=== PATIENT | male | born 1945 | race Caucasian/White ===

== ENCOUNTER → 2018-05-13 08:07 | Outpatient (CLI) | payer MEDICARE, OTHER, SELFPAY ==
[2018-05-13 09:25] LABS: Add Manual Diff / Slide Review NO; Basophils Percent Auto 1.2 % (0-2); Eosinophils Percent Auto 3.4 % (2-4); Hematocrit 43.2 % (41-53); Hemoglobin 14.6 g/dL (13.5-17.5); Lymphocytes Percent Auto 27.6 % (25-40); Mean Corpuscular HGB Conc 33.8 % (30-36); Mean Corpuscular Hemoglobin 29.4 PG (26-34); Mean Corpuscular Volume 86.8 fL (80-100); Monocytes Percent Auto 8.5 % (3-14); Neutrophils Absolute Auto 3900 /uL (3000-5900); Neutrophils Percent Auto 59.3 % (50-75); Platelet Count 235 X10^3/uL (150-400); Red Blood Cell Count 4.98 X10^6/uL (4.5-5.9); Red Cell Distribution Width 13.7 % (11.6-14.8); White Blood Cell Count 6.6 X10^3/uL (4.5-11.0)
[2018-05-13 09:44] LABS: Alanine Aminotransferase 26 IU/L (21-72); Albumin 4.1 g/dL (3.5-5.0); Albumin Globulin Ratio 1.5 (1.0-2.8); Alkaline Phosphatase 65 U/L (38-126); Aspartate Aminotransferase 28 IU/L (17-59); BUN Creatinine Ratio 26.7 (6-22); Bilirubin Total 0.8 mg/dL (0.2-1.3); Blood Urea Nitrogen 24 mg/dL (9-20); Calcium 9.5 mg/dL (8.4-10.2); Carbon Dioxide 29 mmol/L (22-32); Chloride 105 mmol/L (98-107); Cholesterol 127 mg/dL (140-199); Estimated Glomerular Filt Rate > 60.0 mL/min (>60); Globulin 2.7 g/dL (1.7-4.1); Glucose 90 mg/dL (80-110); HDL Cholesterol 39 mg/dL (40-60); HEMOLYSIS < 15 (0-50); LDL Cholesterol Calculated 75 mg/dL (<100); Magnesium 2.1 mg/dL (1.6-2.3); Potassium 4.6 mmol/L (3.4-5.1); Sodium 142 mmol/L (137-145); Total Protein 6.8 g/dL (6.3-8.2); Triglycerides 63 mg/dL (35-150)
[2018-05-13 10:15] LABS: Thyroid Stimulating Hormone 2.76 uIU/mL (0.47-4.68)
== END ==
PROVIDERS: PCP Family Medicine; Visit Provider Family Medicine
DX: R42 Dizziness and giddiness (principal)
CPT/HCPCS: 36415; 80053; 80061; 83735; 84443; 85025

== ENCOUNTER → 2018-06-08 07:23 | Outpatient (CLI) | payer MEDICARE, OTHER, SELFPAY ==
--- NOTE | 2018-06-08 07:24 | DI.MRI.S_ITS ---
PROCEDURE: MR HEAD/BRAIN WO CON INDICATIONS: 72 year-old man with vertigo. TECHNIQUE: Non-contrast axial T1 spin echo, axial T2 fast spin echo, sagittal and axial FLAIR, coronal T2 fast spin echo, axial gradient echo, axial diffusion and ADC through the brain. COMPARISON: None. FINDINGS: Image quality: Excellent. CSF spaces: Ventricles appear symmetric in size and shape. Basal cisterns are patent. No extra-axial fluid collections. Brain: No intracranial bleeds or mass effects. There is mild cerebral volume loss for age. There are mild periventricular and deep white matter chronic small vessel ischemic changes. Brainstem appears normal. Diffusion-weighted images show no acute ischemic insults. No chronic ischemic insults. Normal intravascular flow voids are present. Skull and face: Calvarial bone marrow is normal in signal. Orbits are normal. Sinuses: There is a mucous retention cyst in the left maxillary sinus. No stoids are clear. IMPRESSION: 1. No acute intracranial abnormalities. 2. Cerebral volume loss and chronic microvascular ischemic changes. 3. A mucous retention cyst in the left maxillary sinus. Dictated by: Latosha Nash M.D. on 06/08/2018 at 9:59 Approved by: Latosha Nash M.D. on 06/08/2018 at 10:03
== END ==
PROVIDERS: Family Provider Family Medicine; PCP Family Medicine; Visit Provider Family Medicine
DX: R42 Dizziness and giddiness (principal); J34.1 Cyst and mucocele of nose and nasal sinus
CPT/HCPCS: 70551

== ENCOUNTER → 2019-02-02 11:12 | Outpatient (CLI) | payer MEDICARE, OTHER, SELFPAY ==
[2019-02-02 11:41] LABS: Hematocrit 45.6 % (41-53); Hemoglobin 15.4 g/dL (13.5-17.5); Mean Corpuscular HGB Conc 33.7 % (30-36); Mean Corpuscular Hemoglobin 29.4 PG (26-34); Mean Corpuscular Volume 87.1 fL (80-100); Platelet Count 246 X10^3/uL (150-400); Red Blood Cell Count 5.23 X10^6/uL (4.5-5.9); Red Cell Distribution Width 13.7 % (11.6-14.8); White Blood Cell Count 9.7 X10^3/uL (4.5-11.0)
[2019-02-02 12:18] LABS: Alanine Aminotransferase 18 IU/L (21-72); Albumin 4.3 g/dL (3.5-5.0); Albumin Globulin Ratio 1.8 (1.0-2.8); Alkaline Phosphatase 67 U/L (38-126); Aspartate Aminotransferase 21 IU/L (17-59); BUN Creatinine Ratio 21.3 (6-22); Bilirubin Total 0.8 mg/dL (0.2-1.3); Blood Urea Nitrogen 17 mg/dL (9-20); Calcium 9.6 mg/dL (8.4-10.2); Carbon Dioxide 27 mmol/L (22-32); Chloride 102 mmol/L (98-107); Estimated Glomerular Filt Rate > 60.0 mL/min (>60); Globulin 2.4 g/dL (1.7-4.1); Glucose 81 mg/dL (80-110); HEMOLYSIS < 15 (0-50); Potassium 4.5 mmol/L (3.4-5.1); Sodium 138 mmol/L (137-145); Total Protein 6.7 g/dL (6.3-8.2)
[2019-02-02 13:36] LABS: Neutrophils Absolute Manual 6208 /uL (3000-5900); Total Cells Counted 100
[2019-02-02 13:38] LABS: RBC Morphology Normal Morphology
== END ==
PROVIDERS: Family Provider Family Medicine; PCP Family Medicine; Visit Provider Surgery
DX: D17.9 Benign lipomatous neoplasm, unspecified (principal); I27.0 Primary pulmonary hypertension
CPT/HCPCS: 36415; 80053; 85025; 93005; 93010; 99213

== ENCOUNTER 2019-03-16 09:24 | Day surgery (SDC) | payer MEDICARE, OTHER, SELFPAY ==
[2019-02-03 08:52] VITALS: BMI 29.4
--- NOTE | 2019-03-16 | PATH_ITS ---
[facility] Accession Number: [id number] . 01 Material submitted: . flank - RIGHT FLANK . 01 Clinical history: . LIPOMA 8 X 5 X 2 . 01 Diagnosis: Right Flank Lesion, Excision: Mature adipose tissue, consistent with lipoma. Negative for malignancy. MRV/03/18/2019 . 01 Electronically signed: . Higinio Ramos MD, Pathologist NPI- [id number] . 01 Gross description: . RIGHT FLANK: Received in formalin are 2 fragments of fernandez soft tissue measuring 7.0 x 4.0 x 2.0 cm. Tissue is inked blue. Specimen is sectioned and submitted in public utilities sales representative sections in 6 cassettes, labeled A1-A6. /DMC /DMC . 01 Pathologist provided ICD-10: D17.9 . 01 CPT . 725387 Performed at: 01 [facility] [address] [place] [address] [address], [place], [place] [id number] MD Tommy Matson MD Phone: [phone]
[2019-03-16 11:56] VITALS: BP 176/86; PULSE 61; RESP 16; TEMP 36.5; O2SAT 97; BMI 28.1
[2019-03-16] MEDS: LACTATED RINGERS 1,000 ML 42 ML IV (12:00)
--- NOTE | 2019-03-16 12:29 | PM.PREOP ---
Pre-operative Note Interval Note History & Physical reviewed/Exam performed by Physician: Yes Changes to H&P: No
--- NOTE | 2019-03-16 12:54 | PM.HP.1 ---
History of Present Illness Date Patient Seen: 03/16/19 Time Patient Seen: 12:54 Chief complaint: [id number] Narrative: 73yo M with enlarging R flank lipoma. Quite bothersome. Patient History Medical History Arthritis (Acute) Easy bruisability (Acute) Enlarged prostate (Acute) Shoulder pain (Acute) Asthma (Chronic) Chronic cough (Chronic ~2004) Coronary artery disease (Chronic ~2002) Hearing loss (Chronic ~1993) Pulmonary hypertension (Chronic ~2002) Seasonal allergies (Chronic) Vision disorder (Chronic) Chicken pox (Resolved) Malaria (Resolved ~2007) Measles (Resolved) Surgical History Anesthesia (Resolved) History of surgery (Resolved ~1971) Family History Father Heart disease Grandmother Stomach cancer Mother Dementia Social History marital status: household members: spouse occupational status: previously employed Smoking Status: Former smoker alcohol intake: current substance use type: does not use Family & Social History Family History Father Heart disease Grandmother Stomach cancer Mother Dementia Social History: household members spouse Tobacco & Substance use: Smoking Status Former smoker alcohol intake current Substance Use Type does not use Meds Home Medications Medication Instructions Recorded Confirmed Type niacin 500 mg PO BID #0 06/13/11 02/03/19 History atorvastatin 10 mg tablet 10 mg PO HS #90 tab 05/11/18 03/16/19 Rx lisinopril 20 mg tablet 20 mg PO BID #180 tab 05/11/18 03/16/19 Rx aspirin 81 mg PO BID 02/03/19 03/16/19 History docusate sodium [Colace] 100 mg PO BID #60 cap 03/16/19 Rx ibuprofen 800 mg PO TID #30 tab 03/16/19 Rx oxycodone-acetaminophen [Percocet] 1 tab PO Q4-6H PRN #30 tab 03/16/19 Rx Allergies Allergy/AdvReac Type Severity Reaction Status Date / Time tetanus and diphtheria Allergy Mild ILL Verified 03/16/19 12:22 toxoids [tetanus & diphtheria toxoids] Opioids - Morphine Analogues AdvReac Intermediate Nausea Verified 02/02/19 10:39 Review of Systems Constitutional Constitutional: Reports as per HPI Exam Vital Signs (past 8 hours): - 03/16/19 11:56 Temperature 97.7 F Pulse Rate 61 Respiratory Rate 16 Blood Pressure 176/86 H Pulse Oximetry 97 Oxygen Delivery Method Room Air Narrative Exam Narrative: AAO, NAD, overweight male EOMI, MMM, no scleral icterus unlabored RA soft, nt/nd MAEW visible skin dry and intact Assessment & Plan (1) Lipoma: Current visit: Yes Status: Acute Assessment & Plan narrative: - large R flank presumed lipoma --> plan for excision --> all R/B/A discussed and pt wishes to proceed
[2019-03-16] MEDS: CEFAZOLIN 2 GM/100 ML FROZ.PIGGY IV (13:10)
--- NOTE | 2019-03-16 13:29 | SUR.OPER ---
Lateral on galo bag over padded OR bed, head on pillows, bottom leg bent with gel pad under knee to foot, upper leg straight and supported with pillow. Upper arm supported by pillows and secured over bottom arm to padded arm board. Safety belt at hip, tape over blanket over torso.
[2019-03-16] MEDS: BUPIVACAINE 0.25% W/ EPI 30 ML VIAL INJ (13:35)
[2019-03-16 13:57] VITALS: BP 148/77; PULSE 65; RESP 21; TEMP 36.5; O2SAT 98
[2019-03-16 14:02] VITALS: BP 132/67; PULSE 62; RESP 19; TEMP 36.5; O2SAT 98
[2019-03-16 14:07] VITALS: BP 127/72; PULSE 65; RESP 18; TEMP 36.3; O2SAT 98
[2019-03-16 14:13] VITALS: BP 146/76; PULSE 63; RESP 18; TEMP 36.3; O2SAT 97
--- NOTE | 2019-03-16 15:41 | PM.OP.1 ---
Operative Date/Time/Diagnoses Date of procedure: 03/16/19 Time of procedure: 14:00 Pre-op diagnosis: Right flank mass Post-op diagnosis: same Procedure & Clinicians Procedure: Excision of Right Flank Mass Same procedure as scheduled: Yes Indications: 73yo M with a long-standing but enlarging right flank soft tissue mass. Consistent with lipoma on exam. Causes him much discomfort and is compressed with bending hip and belt which causes shooting pains. All risks, benefits, and alternatives are discussed and patient wishes to proceed. Surgeon: Jia Tabler Click Yes if Unassisted: Yes Anesthesia Type: General Operative Notes Findings: soft tissue mass of adipose tissue, consistent with lipoma ([id number]) Closure Type: primary Specimen(s): other (right flank mass) Estimated Blood Loss (mL): 3 Procedure in detail: Patient is taken to the OR suite, placed in supine position, and induced to an acceptable level of general anesthesia, then turned onto left lateral decubitus position. The area is prepped and draped in sterile fashion and a timeout performed with the team present. Attention is turned to the lesion of the right flank. Local anesthesia is infiltrated over the site. An incision is made with a 10 blade scalpel over the body of the mass. It is carried down through the dermis using electrocautery and the bulging soft tissue mass of adipose tissue was quickly encountered. This was dissected away from surrounding tissues using blunt and sharp dissection with attention to hemostasis. As noted, the mass was superficial and it was well defined. Once completely released, it is moved off the field to be sent for specimen. The field is irrigated and hemostasis ensured. The deep dermis is closed with 2-0 vicryl sutures. The dermis is closed with 3-0 vicryl in an interrupted fashion and the epidermis with 4-0 monocryl in running fashion. The area is cleaned and dried and skin glue applied. All counts were correct. Patient tolerated the procedure well, was awakened without issue, and taken to PACU hemodynamically stable. Complications: none Condition: stable Disposition: PACU
--- NOTE | 2019-03-16 15:47 | P.OP_ITS ---
Operative Date/Time/Diagnoses Date of procedure: 03/16/19 Time of procedure: 14:00 Pre-op diagnosis: Right flank mass Post-op diagnosis: same Procedure & Clinicians Procedure: Excision of Right Flank Mass Same procedure as scheduled: Yes Indications: 73yo M with a long-standing but enlarging right flank soft tissue mass. Consistent with lipoma on exam. Causes him much discomfort and is compressed with bending hip and belt which causes shooting pains. All risks, benefits, and alternatives are discussed and patient wishes to proceed. Surgeon: Jia Tabler Click Yes if Unassisted: Yes Anesthesia Type: General Operative Notes Findings: soft tissue mass of adipose tissue, consistent with lipoma ([id number]) Closure Type: primary Specimen(s): other (right flank mass) Estimated Blood Loss (mL): 3 Procedure in detail: Patient is taken to the OR suite, placed in supine p osition, and induced to an acceptable level of general anesthesia, then turned onto left lateral decubitus position. The area is prepped and draped in sterile fashion and a timeout performed with the team present. Attention is turned to the lesion of the right flank. Local anesthesia is infiltrated over the site. An incision is made with a 10 blade scalpel over the body of the mass. It is carried down through the dermis using electrocautery and the bulging soft tissue mass of adipose tissue was quickly encountered. This was dissected away from surrounding tissues using blunt and sharp dissection with attention to hemostasis. As noted, the mass was superficial and it was well defined. Once completely released, it is moved off the field to be sent for specimen. The field is irrigated and hemostasis ensured. The deep dermis is closed with 2-0 vicryl sutures. The dermis is closed with 3-0 vicryl in an interrupted fashion and the epidermis with 4-0 monocryl in running fashion. The area is cleaned and dried and skin glue applied. All counts were correct. Patient tolerated the procedure well, was awakened without issue, and taken to PACU hemodynamically stable. Complications: none Condition: stable Disposition: PACU
== END 2019-03-16 14:20 | disposition home or self-care (01) ==
PROVIDERS: Family Provider Family Medicine; PCP Family Medicine; Visit Provider Surgery
PROC: (CPT 21931; principal; 2019-03-16 09:45)
DX: D17.1 Benign lipomatous neoplasm of skin and subcutaneous tissue of trunk (principal); J45.909 Unspecified asthma, uncomplicated; I25.10 Atherosclerotic heart disease of native coronary artery without angina pectoris
CPT/HCPCS: 21931; 11406; 88304; J0690; J1100; J2704

== ENCOUNTER 2019-03-20 08:36 | Emergency (ER) | payer MEDICARE, OTHER, SELFPAY ==
[2019-03-20 08:52] VITALS: BP 163/85; PULSE 72; RESP 23; TEMP 36.7; O2SAT 95; BMI 28.7
[2019-03-20 09:13] VITALS: BP 158/82; PULSE 67; RESP 22
--- NOTE | 2019-03-20 09:13 | ED.DIZZY ---
HPI - Dizziness General Chief Complaint: Dizziness Stated Complaint: 'blood pressure's gone crazy' Time Seen by Provider: 03/20/19 08:48 Source: patient and family () Mode of arrival: ambulatory Limitations: no limitations History of Present Illness HPI Narrative: This is a 73-year-old who comes to the emergency department with complaint of lightheadedness. He states it started after he had surgery on patient had a lipoma removed from his right hip. He states he has felt just a little off balance. This morning he was on a ladder painting overhead and made his symptoms worse. Patient states that his surgery went well, he does not have any pain in the hip. He thought it might be the narcotic pain medication so he stopped this but his symptoms do not resolve he denies any syncope he has had mild headache he states that is been since the painting. No chest pain or pressure, no nausea, no vomiting no diarrhea or constipation. No urinary issues. No weakness or numbness in his extremities or difficulty with movement. No issues with speech. His does not appreciate any acute changes. He states the knee is head up and down exacerbates his symptoms, bending over makes them worse. Turning his head side to side is not as problematic. He has had no nasal congestion, no ear pain or pressure. No chills or fevers. Patient has a history of stent in 2002 he takes lisinopril as well as atorvastatin and 81 mg aspirin in the morning and evening. He has a history of right knee surgery as well and his recent lipoma removal. Patient states the incision looks well and does not show any signs of infection and his pain there has resolved. He denies any tobacco, alcohol or illicit. Dr. Major is his primary care. He admits to some mild memory issues which his states he does seem to have. Related Data Home Medications Medication Instructions Recorded Confirmed niacin 500 mg PO BID #0 06/13/11 02/03/19 aspirin 81 mg PO BID 02/03/19 03/16/19 Previous Rx's Medication Instructions Recorded atorvastatin 10 mg tablet 10 mg PO HS #90 tab 05/11/18 lisinopril 20 mg tablet 20 mg PO BID #180 tab 05/11/18 docusate sodium [Colace] 100 mg PO BID #60 cap 03/16/19 ibuprofen 800 mg PO TID #30 tab 03/16/19 oxycodone-acetaminophen [Percocet] 1 tab PO Q4-6H PRN #30 tab 03/16/19 meclizine 25 mg PO BID-QID PRN #14 tab 03/20/19 Allergies Allergy/AdvReac Type Severity Reaction Status Date / Time tetanus and diphtheria Allergy Mild ILL Verified 03/16/19 12:22 toxoids [tetanus & diphtheria toxoids] Opioids - Morphine Analogues AdvReac Intermediate Nausea Verified 02/02/19 10:39 Review of Systems Review of Systems ROS Unobtainable: All systems reviewed & are unremarkable except as noted in HPI and below Constitutional Denies chills, Denies fever(s), Denies frequent falls, Reports headache(s) (Mild per patient), Denies lethargy and Denies weakness Eyes Denies change in vision ENT Ears, Nose, Mouth, and Throat: Denies abnormal hearing, Reports vertigo (room not spinning but off balance.), Denies ear discharge, Denies otalgia, Reports headache(s) (Mild per patient), Denies nasal congestion, Reports disequilibrium (Mild), Denies tinnitus and Denies sinus pain Cardiovascular Denies chest pain, Denies diaphoresis, Denies syncope, Denies rapid heart rate, Denies edema, Denies irregular heart rhythm, Reports lightheadedness, Denies radiating jaw, neck or arm pain, Denies palpitations, Denies dyspnea, Denies dyspnea on exertion and Denies orthopnea Respiratory Denies change in phlegm color, Denies chest congestion, Denies cough, Denies excessive phlegm production, Denies dyspnea, Denies dyspnea on exertion and Denies wheezing Gastrointestinal Gastrointestinal: Denies abdominal pain, Denies change in bowel habits, Denies diarrhea, Denies nausea (Had some while taking narcotic pain medication now resolved) and Denies vomiting Genitourinary Denies hematuria, Denies flank pain, Denies urinary frequency, Denies urinary hesitancy, Denies urinary incontinence and Denies urinary urgency Musculoskeletal Denies arthralgias (Healing incision on right hip), Denies muscle weakness and Denies numbness Integumentary/Breasts Denies pruritus, Denies erythema, Denies rash and Reports wounds (Healing incision, bruising.) Neurologic Reports as per HPI, Denies abnormal hearing, Denies abnormal movements, Denies abnormal speech, Denies confusion, Reports vertigo (room not spinning but off balance.), Denies syncope, Denies frequent falls, Reports headache(s) (Mild per patient), Denies lack of coordination, Denies focal weakness, Reports memory loss (slowly increasing over time.), Denies numbness, Denies sensory deficit, Reports disequilibrium (Mild) and Denies weakness Psychiatric Denies confusion and Reports memory loss (slowly increasing over time.) Endocrine Denies palpitations Allergic/Immunologic Denies wheezing [facility] Medical History Arthritis (Acute) Easy bruisability (Acute) Enlarged prostate (Acute) Shoulder pain (Acute) Asthma (Chronic) Chronic cough (Chronic ~2004) Coronary artery disease (Chronic ~2002) Hearing loss (Chronic ~1993) Pulmonary hypertension (Chronic ~2002) Seasonal allergies (Chronic) Vision disorder (Chronic) Chicken pox (Resolved) Malaria (Resolved ~2007) Measles (Resolved) Surgical History Anesthesia (Resolved) History of surgery (Resolved ~1971) Family History Father Heart disease Grandmother Stomach cancer Mother Dementia Social History marital status: household members: spouse occupational status: previously employed Smoking Status: Former smoker alcohol intake: current substance use type: does not use Family History Father Heart disease Grandmother Stomach cancer Mother Dementia Social History marital status: household members: spouse occupational status: previously employed Smoking Status: Former smoker alcohol intake: current substance use type: does not use Exam Narrative Exam Narrative: GEN: well nourished, well appearing male, alert and oriented x 3, patient appears to be in no acute distress. HEENT: Atraumatic, pupils are equal round reactive to light, extraocular movements are intact, no nystagmus, nares are clear, TMs are clear with no fluid, there is no conjunctival pallor. Throat is clear without any exudates, erythema, tonsillar enlargement or uvular deviation, no facial droop. HEART: Regular rate and rhythm without murmur, clicks, rubs. Pulses equal in upper and lower extremities. LUNGS:Lungs clear to auscultation, no wheezes, rales, crackles, chest moves symmetrically ABD:bowel sounds normal, soft, non-tender, no guarding, rebound, rigidity, no masses noted, no hepatosplenomegaly :No CVA tenderness MSCL: Non-tender, right hip has a healing incision that appears clean dry and intact. There is no discharge. There is bruising surrounding the area but no palpable hematoma no warmth no muscle atrophy, muscles strength 5/5 upper and lower extremities, full range of motion, normal gait NEURO:CN 2-12 intact, sensation normal, reflexes 2/4 upper and lower extremities. finger nose finger test normal, heel kim test normal, normal gait to the room. Initial Vital Signs Initial Vital Signs: Vital Signs Temperature 98.0 F 03/20/19 08:52 Pulse Rate 72 03/20/19 08:52 Respiratory Rate 23 03/20/19 08:52 Blood Pressure 163/85 H 03/20/19 08:52 Pulse Oximetry 95 03/20/19 08:52 Scores NIH Stroke Scale Level of Conciousness: Alert, keenly responsive Ask month/age: Answers both questions correctly. Open/close eyes, close hand: Performs both tasks correctly Best gaze horizontal: Normal Visual kelley: No visual loss Facial palsy: Normal symetrical movement Left arm drift: No drift for full 10 sec Right arm drift: No drift for full 10 sec Left leg drift: No drift for full 10 sec Right leg drift: No drift for full 10 sec Limb ataxia: Absent Sensory on face/arms/legs: Normal, no sensory loss Best language: No aphasia, normal Dysarthria: Normal Extinction or inattention: No abnormality Total NIH Stroke scale score: 0 Course Orders Ordered: ED Orders 03/20/19 09:13 XR chest 1V Stat 03/20/19 09:14 CT head/brain wo con Stat Discontinued Medications Sodium Chloride (Normal Saline 0.9%) 1,000 mls @ 1,000 mls/hr IV BOLUS ONE Stop: 03/20/19 10:12 Last Infusion: 03/20/19 11:10 Dose: 0 mls/hr Infusion: 03/20/19 09:53 Dose: 1,000 mls/hr Infusion: 03/20/19 09:25 Dose: 0 mls/hr Admin: 03/20/19 09:22 Dose: 1,000 mls/hr Vital Signs - 8 hr 03/20/19 10:30 03/20/19 11:01 Pulse Rate 54 L 57 L Respiratory Rate 20 22 Blood Pressure [Right Arm] 152/77 H 156/74 H Pulse Oximetry 98 94 MDM - Dizziness Lab Data Attestation: I reviewed the patient's lab results. Result diagrams: 03/20/19 09:00 03/20/19 09:00 Lab Results 03/20/19 03/20/19 03/20/19 Range/Units 09:00 09:00 09:00 WBC 6.9 (4.5-11.0) X10^3/uL RBC 4.94 (4.5-5.9) X10^6/uL Hgb 14.6 (13.5-17.5) g/dL Hct 42.1 (41-53) % MCV 85.3 (80-100) fL MCH 29.6 (26-34) PG MCHC 34.7 (30-36) % RDW 13.9 (11.6-14.8) % Plt Count 213 (150-400) X10^3/uL Neut % (Auto) 66.0 (50-75) % Lymph % (Auto) 21.6 L (25-40) % [place] % (Auto) 9.3 (3-14) % Eos % (Auto) 2.2 (2-4) % Baso % (Auto) 0.9 (0-2) % Neut # (Auto) 4600 (1037-5279) /uL Lymph # (Auto) 1500 (8318-8088) /uL [place] # (Auto) 600 (0-900) /uL Eos # (Auto) 200 (0-450) /uL Baso # (Auto) 100 (0-100) /uL PT 12.4 (10.1-12.7) SECONDS INR 1.1 (0.9-1.3) Sodium 138 (137-145) mmol/L Potassium 3.9 (3.4-5.1) mmol/L Chloride 106 (98-107) mmol/L Carbon Dioxide 26 (22-32) mmol/L BUN 17 (9-20) mg/dL Creatinine 0.70 (0.66-1.25) mg/dL Estimated GFR > 60.0 (>60) mL/min BUN/Creatinine Ratio 24.3 H (6-22) Glucose 105 (80-110) mg/dL Calcium 9.3 (8.4-10.2) mg/dL Total Bilirubin 0.6 (0.2-1.3) mg/dL AST 19 (17-59) IU/L ALT 20 L (21-72) IU/L Alkaline Phosphatase 61 (38-126) U/L Troponin I 0.014 (0.01-0.034) ng/mL Total Protein 6.4 (6.3-8.2) g/dL Albumin 3.8 (3.5-5.0) g/dL Globulin 2.6 (1.7-4.1) g/dL Albumin/Globulin Ratio 1.5 (1.0-2.8) Urine Dip Bedside Urine Glucose Negative Bedside Urine Bilirubin - Negative Bedside Urine Ketone - Negative Urine Specific [place] 1.020 Bedside Urine Occult Blood - Negative Bedside Urine pH 6.0 Bedside Urine Protein - Negative Bedside Urine Urobilinogen - Negative Bedside Urine Nitrite - Negative Bedside Urine Leukocytes - Negative Esterase Imaging Data CT scan - head: Radiologist's impression: [place] [address] CT Scan Report Signed Patient: Keny Call FMR#: [id number] : 3Acct:[id number] Age/Sex: 73 / MDate of Service: 03/20/19 Loc: ED Accession Number: [id number] Procedure: CT head/brain wo con Ordering Provider: Dia Thomas D.O. PROCEDURE: CT HEAD/BRAIN WO CON INDICATIONS: lightheaded, s/p surgery, feels a little off balance TECHNIQUE: Noncontrast 4.5 mm thick angled axial sections acquired from the foramen magnum to the vertex, with coronal and sagittal reformats. For radiation dose reduction, the following was used: automated exposure control, adjustment of mA and/or kV according to patient size. COMPARISON: None. FINDINGS: Image quality: Diagnostic CSF spaces: Basal cisterns are patent. No extra-axial fluid collections. Ventricles are mildly prominent in size. There is corresponding mild parenchymal volume loss. Brain: No midline shift. No intracranial masses or hemorrhage. Cardozo-white matter interface is normal. There may be areas of low-attenuation within the periventricular and deep white matter of the supratentorial brain. Skull and face: Calvarium and visualized facial bones are intact, without suspicious lesions. Sinuses: Visualized sinuses and mastoids are clear. IMPRESSION: 1. No acute intracranial hemorrhage or ischemia. 2. Chronic small vessel ischemic changes and parenchymal volume loss. Dictated by: Ck Smallwood M.D. on 03/20/2019 at 8:35 Approved by: Ck Smallwood M.D. on 03/20/2019 at 8:40 Chest x-ray: Radiologist's impression: [address] [address] XRay Report Signed Patient: Keny Call FMR#: [id number] : 3Acct:[id number] Age/Sex: 73 / MDate of Service: 03/20/19 Loc: ED Accession Number: [id number] Procedure: XR chest 1V Ordering Provider: Dia Thomas D.O. PROCEDURE: XR CHEST 1V INDICATIONS: lighthead s/p surgery, feels a little off balance TECHNIQUE: One view of the chest was acquired. COMPARISON: None. FINDINGS: Surgical changes and devices: None. Lungs and pleura: Lungs are clear. No pleural effusions or pneumothorax. Mediastinum: Mediastinal contours appear normal. Heart size is normal. Bones and chest wall: No suspicious bony lesions. Overlying soft tissues appear unremarkable. IMPRESSION: Stable chest. No acute cardiopulmonary process is suspected. Dictated by: Ck Smallwood M.D. on 03/20/2019 at 9:07 Approved by: Ck Smallwood M.D. on 03/20/2019 at 9:09 ECG Data Attestation: I personally reviewed and interpreted this ECG as follows: Prior ECG tracings: available for review Interpretation: Sinus rhythm with a rate of 68 P are 178 QRS of 93 and QTC of 423. No ST elevation or depression appreciated. Has prior EKG from 02/04/2029 to the appears similar. [facility] Narrative Medical decision making narrative: Patient continues to have a little bit of symptoms. I did find that he has had similar symptoms in the past with Dr. Major. I think he does have some memory issues as he initially did not recall this but then after some discussion seems to maybe recall it. Him and his both state that he has some memory issues. They both state that they have been slowly progressing as well. Patient's head CT and chest x-ray did not show any acute process, EKG is normal and appears similar to priors. Lab work shows no anemia, no elevated white count, normal renal function electrolytes and normal troponin. Patient has had some fluids. His hypertension has improved. He did not take his lisinopril this morning. We discussed that I think this may be a recurrence of his symptoms. His NIH is 0 Um and with his continued symptoms I suspect that this is not acute process such as a stroke. Patient feels comfortable returning home he was offered meclizine he does not remember feet ever taken anything like this before and he is unsure if he really needs it but was offered a prescription to try if he would like. He was encouraged to contact Dr. Major Friday morning to follow-up. He was also concerned about his elevated blood pressure at home which was in the 180 range with 100 diastolic. I discussed to recheck once daily and if he continues to be elevated to contact his primary care unless he has new symptoms. Symptoms and red flags were discussed for patient to return with him and his . They are both comfortable with this plan. Discharge Plan Departure Patient Disposition: Home Clinical Impression: Lightheadedness Discharge Date/Time: 03/20/19 11:13 Interventions: ED Discharge Assessment Last Done: 03/20/19 11:11 Instructions: DI for Vertigo Activity Restrictions/Additional Instructions: Follow-up with Dr. Major in the next 3-5 days, call Friday for an appointment. Continue your home medications as prescribed. You may take meclizine 1-2 tablets every 6-8 hours for symptoms. This medication can make you sleepy so do not drive, perform hazards activities or make any major decisions while taking it. Return to the emergency department for fevers greater than 100.4 F, sudden severe headaches, new vision changes, difficulty with speech, new weakness or numbness, new chest pain, shortness of breath, passing out, persistent vomiting or other new or concerning symptoms. Prescriptions: New meclizine 25 mg tablet,chewable 25 mg PO BID-QID PRN (Reason: dizziness) Qty: 14 RF: 0 No Action niacin 1,000 MG tablet extended release 500 mg PO BID Qty: 0 RF: 0 atorvastatin [Lipitor] 10 mg tablet 10 mg PO HS Qty: 90 RF: 3 lisinopril 20 mg tablet 20 mg PO BID Qty: 180 RF: 3 aspirin 81 mg Tablet,Delayed Release (Dr/Ec) 81 mg PO BID RF: 0 ibuprofen 800 mg tablet 800 mg PO TID Qty: 30 RF: 0 oxycodone-acetaminophen [Percocet] 5-325 mg tablet 1 tab PO Q4-6H PRN (Reason: pain) Qty: 30 RF: 0 docusate sodium [Colace] 100 mg capsule 100 mg PO BID Qty: 60 RF: 1 Referrals: Td Major MD [Primary Care Provider] -
--- NOTE | 2019-03-20 09:16 | ED_ITS ---
HPI - Dizziness General Chief Complaint: Dizziness Stated Complaint: 'blood pressure's gone crazy' Time Seen by Provider: 03/20/19 08:48 Source: patient and family () Mode of arrival: ambulatory Limitations: no limitations History of Present Illness HPI Narrative: This is a 73-year-old who comes to the emergency department with complaint of lightheadedness. He states it started after he had surgery on patient had a lipoma removed from his right hip. He states he has felt just a little off balance. This morning he was on a ladder painting overhead and made his symptoms worse. Patient states that his surgery went well, he does not have any pain in the hip. He thought it might be the narcotic pain medication so he stopped this but his symptoms do not resolve he denies any syncope he has had mild headache he states that is been since the painting. No chest pain or pressure, no nausea, no vomiting no diarrhea or constipation. No urinary issues. No weakness or numbness in his extremities or difficulty with movement. No issues with speech. His does not appreciate any acute change s. He states the knee is head up and down exacerbates his symptoms, bending over makes them worse. Turning his head side to side is not as problematic. He has had no nasal congestion, no ear pain or pressure. No chills or fevers. Patient has a history of stent in 2002 he takes lisinopril as well as atorvastatin and 81 mg aspirin in the morning and evening. He has a history of right knee surgery as well and his recent lipoma removal. Patient states the incision looks well and does not show any signs of infection and his pain there has resolved. He denies any tobacco, alcohol or illicit. Dr. Major is his primary care. He admits to some mild memory issues which his states he dobbs s seem to have. Related Data Home Medications Medication Instructions Recorded Confirmed niacin 500 mg PO BID #0 06/13/11 02/03/19 aspirin 81 mg PO BID 02/03/19 03/16/19 Previous Rx's Medication Instructions Recorded atorvastatin 10 mg tablet 10 mg PO HS #90 tab 05/11/18 lisinopril 20 mg tablet 20 mg PO BID #180 tab 05/11/18 docusate sodium [Colace] 100 mg PO BID #60 cap 03/16/19 ibuprofen 800 mg PO TID #30 tab 03/16/19 oxycodone-acetaminophen [Percocet] 1 tab PO Q4-6H PRN #30 tab 03/16/19 meclizine 25 mg PO BID-QID PRN #14 tab 03/20/19 Allergies Allergy/AdvReac Type Severity Reaction Status Date / Time tetanus and diphtheria Allergy Mild ILL Verified 03/16/19 12:22 toxoids [tetanus & diphtheria toxoids] Opioids - Morphine Analogues AdvReac Intermediate Nausea Verified 02/02/19 10:39 Review of Systems Review of Systems ROS Unobtainable: All systems reviewed & are unremarkable except as noted in HPI and below Constitutional Denies chills, Denies fever(s), Denies frequent falls, Reports headache(s) (Mild per patient), Denies lethargy and Denies weakness Eyes Denies change in vision ENT Ears, Nose, Mouth, and Throat: Denies abnormal hearing, Reports vertigo (room not spinning but off balance.), Denies ear discharge, Denies otalgia, Reports headache(s) (Mild per patient), Denies nasal congestion, Reports disequilibrium (Mild), Denies tinnitus and Denies sinus pain Cardiovascular Denies chest pain, Denies diaphoresis, Denies syncope, Denies rapid heart rate, Denies edema, Denies irregular heart rhythm, Reports lightheadedness, Denies radiating jaw, neck or arm pain, Denies palpitations, Denies dyspnea, Denies dyspnea on exertion and Denies orthopnea Respiratory Denies change in phlegm color, Denies chest congestion, Denies cough, Denies excessive phlegm production, Denies dyspnea, Denies dyspnea on exertion and Denies wheezing Gastrointestinal Gastrointestinal: Denies abdominal pain, Denies change in bowel habits, Denies diarrhea, Denies nausea (Had some while taking narcotic pain medication now resolved) and Denies vomiting Genitourinary Denies hematuria, Denies flank pain, Denies urinary frequency, Denies urinary hesitancy, Denies urinary incontinence and Denies urinary urgency Musculoskeletal Denies arthralgias (Healing incision on right hip), Denies muscle weakness and Denies numbness Integumentary/Breasts Denies pruritus, Denies erythema, Denies rash and Reports wounds (Healing incision, bruising.) Neurologic Reports as per HPI, Denies abnormal hearing, Denies abnormal movements, Denies abnormal speech, Denies confusion, Reports vertigo (room not spinning but off balance.), Denies syncope, Denies frequent falls, Reports headache(s) (Mild per patient), Denies lack of coordination, Denies focal weakness, Reports memory loss (slowly increasing over time.), Denies numbness, Denies sensory deficit, Reports disequilibrium (Mild) and Denies weakness Psychiatric Denies confusion and Reports memory loss (slowly increasing over time.) Endocrine Denies palpitations Allergic/Immunologic Denies wheezing [facility] Medical History Arthritis (Acute) Easy bruisability (Acute) Enlarged prostate (Acute) Shoulder pain (Acute) Asthma (Chronic) Chronic cough (Chronic ~2004) Coronary artery disease (Chronic ~2002) Hearing loss (Chronic ~1993) Pulmonary hypertension (Chronic ~2002) Seasonal allergies (Chronic) Vision disorder (Chronic) Chicken pox (Resolved) Malaria (Resolved ~2007) Measles (Resolved) Surgical History Anesthesia (Resolved) History of surgery (Resolved ~1971) Family History Father Heart disease Grandmother Stomach cancer Mother Dementia Social History marital status: household members: spouse occupational status: previously employed Smoking Status: Former smoker alcohol intake: current substance use type: does not use Family History Father Heart disease Grandmother Stomach cancer Mother Dementia Social History marital status: household members: spouse occupational status: previously employed Smoking Status: Former smoker alcohol intake: current substance use type: does not use Exam Narrative Exam Narrative: GEN: well nourished, well appearing male, alert and oriented x 3, patient appears to be in no acute distress. HEENT: Atraumatic, pupils are equal round reactive to light, extraocular movements are intact, no nystagmus, nares are clear, TMs are clear with no fluid, there is no conjunctival pallor. Throat is clear without any exudates, erythema, tonsillar enlargement or uvular deviation, no facial droop. HEART: Regular rate and rhythm without murmur, clicks, rubs. Pulses equal in upper and lower extremities. LUNGS:Lungs clear to auscultation, no wheezes, rales, crackles, chest moves symmetrically ABD:bowel sounds normal, soft, non-tender, no guarding, rebound, rigidity, no masses noted, no hepatosplenomegaly :No CVA tenderness MSCL: Non-tender, right hip has a healing incision that appears clean dry and intact. There is no discharge. There is bruising surrounding the area but no palpable hematoma no warmth no muscle atrophy, muscles strength 5/5 upper and lo wer extremities, full range of motion, normal gait NEURO:CN 2-12 intact, sensation normal, reflexes 2/4 upper and lower extremities. finger nose finger test normal, heel kim test normal, normal gait to the room. Initial Vital Signs Initial Vital Signs: Vital Signs Temperature 98.0 F 03/20/19 08:52 Pulse Rate 72 03/20/19 08:52 Respiratory Rate 23 03/20/19 08:52 Blood Pressure 163/85 H 03/20/19 08:52 Pulse Oximetry 95 03/20/19 08:52 Scores NIH Stroke Scale Level of Conciousness: Alert, keenly responsive Ask month/age: Answers both questions correctly. Open/close eyes, close hand: Performs both tasks correctly Best gaze horizontal: Normal Visual kelley: No visual loss Facial palsy: Normal symetrical movement Left arm drift: No drift for full 10 sec Right arm drift: No drift for full 10 sec Left leg drift: No drift for full 10 sec Right leg drift: No drift for full 10 sec Limb ataxia: Absent Sensory on face/arms/legs: Normal, no sensory loss Best language: No aphasia, normal Dysarthria: Normal Extinction or inattention: No abnormality Total NIH Stroke scale score: 0 Course Orders Ordered: ED Orders 03/20/19 09:13 XR chest 1V Stat 03/20/19 09:14 CT head/brain wo con Stat Discontinued Medications Sodium Chloride (Normal Saline 0.9%) 1,000 mls @ 1,000 mls/hr IV BOLUS ONE Stop: 03/20/19 10:12 Last Infusion: 03/20/19 11:10 Dose: 0 mls/hr Infusion: 03/20/19 09:53 Dose: 1,000 mls/hr Infusion: 03/20/19 09:25 Dose: 0 mls/hr Admin: 03/20/19 09:22 Dose: 1,000 mls/hr Vital Signs - 8 hr 03/20/19 10:30 03/20/19 11:01 Pulse Rate 54 L 57 L Respiratory Rate 20 22 Blood Pressure [Right Arm] 152/77 H 156/74 H Pulse Oximetry 98 94 MDM - Dizziness Lab Data Attestation: I reviewed the patient's lab results. Result diagrams: 03/20/19 09:00 03/20/19 09:00 Lab Results 03/20/19 03/20/19 03/20/19 Range/Units 09:00 09:00 09:00 WBC 6.9 (4.5-11.0) X10^3/uL RBC 4.94 (4.5-5.9) X10^6/uL Hgb 14.6 (13.5-17.5) g/dL Hct 42.1 (41-53) % MCV 85.3 (80-100) fL MCH 29.6 (26-34) PG MCHC 34.7 (30-36) % RDW 13.9 (11.6-14.8) % Plt Count 213 (150-400) X10^3/uL Neut % (Auto) 66.0 (50-75) % Lymph % (Auto) 21.6 L (25-40) % [place] % (Auto) 9.3 (3-14) % Eos % (Auto) 2.2 (2-4) % Baso % (Auto) 0.9 (0-2) % Neut # (Auto) 4600 (1735-9630) /uL Lymph # (Auto) 1500 (2469-5651) /uL [place] # (Auto) 600 (0-900) /uL Eos # (Auto) 200 (0-450) /uL Baso # (Auto) 100 (0-100) /uL PT 12.4 (10.1-12.7) SECONDS INR 1.1 (0.9-1.3) Sodium 138 (137-145) mmol/L Potassium 3.9 (3.4-5.1) mmol/L Chloride 106 (98-107) mmol/L Carbon Dioxide 26 (22-32) mmol/L BUN 17 (9-20) mg/dL Creatinine 0.70 (0.66-1.25) mg/dL Estimated GFR > 60.0 (>60) mL/min BUN/Creatinine Ratio 24.3 H (6-22) Glucose 105 (80-110) mg/dL Calcium 9.3 (8.4-10.2) mg/dL Total Bilirubin 0.6 (0.2-1.3) mg/dL AST 19 (17-59) IU/L ALT 20 L (21-72) IU/L Alkaline Phosphatase 61 (38-126) U/L Troponin I 0.014 (0.01-0.034) ng/mL Total Protein 6.4 (6.3-8.2) g/dL Albumin 3.8 (3.5-5.0) g/dL Globulin 2.6 (1.7-4.1) g/dL Albumin/Globulin Ratio 1.5 (1.0-2.8) Urine Dip Bedside Urine Glucose Negative Bedside Urine Bilirubin - Negative Bedside Urine Ketone - Negative Urine Specific [place] 1.020 Bedside Urine Occult Blood - Negative Bedside Urine pH 6.0 Bedside Urine Protein - Negative Bedside Urine Urobilinogen - Negative Bedside Urine Nitrite - Negative Bedside Urine Leukocytes - Negative Esterase Imaging Data CT scan - head: Radiologist's impression: [place] [address] CT Scan Report Signed Patient: Keny Call FMR#: [id number] : 3Acct:[id number] Age/Sex: 73 / MDate of Service: 03/20/19 Loc: ED Accession Number: [id number] Procedure: CT head/brain wo con Ordering Provider: Dia Thomas D.O. PROCEDURE: CT HEAD/BRAIN WO CON INDICATIONS: lightheaded, s/p surgery, feels a little off balance TECHNIQUE: Noncontrast 4.5 mm thick angled axial sections acquired from the foramen magnum to the vertex, with coronal and sagittal reformats. For radiation dose reduction, the following was used: automated exposure control, adjustment of mA and/or kV according to patient size. COMPARISON: None. FINDINGS: Image quality: Diagnostic CSF spaces: Basal cisterns are patent. No extra-axial fluid collections. Ventricles are mildly prominent in size. There is corresponding mild parenchymal volume loss. Brain: No midline shift. No intracranial masses or hemorrhage. Cardozo-white matter interface is normal. There may be areas of low-attenuation within the periven tricular and deep white matter of the supratentorial brain. Skull and face: Calvarium and visualized facial bones are intact, without suspicious lesions. Sinuses: Visualized sinuses and mastoids are clear. IMPRESSION: 1. No acute intracranial hemorrhage or ischemia. 2. Chronic small vessel ischemic changes and parenchymal volume loss. Dictated by: Ck Smallwood M.D. on 03/20/2019 at 8:35 Approved by: Ck Smallwood M.D. on 03/20/2019 at 8:40 Chest x-ray: Radiologist's impression: [address] [address] XRay Report Signed Patient: Keny Call FMR#: [id number] : 3Acct:[id number] Age/Sex: 73 / MDate of Service: 03/20/19 Loc: ED Accession Number: [id number] Procedure: XR chest 1V Ordering Provider: Dia Thomas D.O. PROCEDURE: XR CHEST 1V INDICATIONS: lighthead s/p surgery, feels a little off balance TECHNIQUE: One view of the chest was acquired. COMPARISON: None. FINDINGS: Surgical changes and devices: None. Lungs and pleura: Lungs are clear. No pleural effusions or pneumothorax. Mediastinum: Mediastinal contours appear normal. Heart size is normal. Bones and chest wall: No suspicious bony lesions. Overlying soft tissues appear unremarkable. IMPRESSION: Stable chest. No acute cardiopulmonary process is suspected. Dictated by: Ck Smallwood M.D. on 03/20/2019 at 9:07 Approved by: Ck Smallwood M.D. on 03/20/2019 at 9:09 ECG Data Attestation: I personally reviewed and interpreted this ECG as follows: Prior ECG tracings: available for review Interpretation: Sinus rhythm with a rate of 68 P are 178 QRS of 93 and QTC of 423. No ST elevation or depression appreciated. Has prior EKG from 02/04/2029 to the appears similar. [facility] Narrative Medical decision making narrative: Patient continues to have a little bit of symptoms. I did find that he has had similar symptoms in the past with Dr. Major. I think he does have some memory issues as he initially did not recall this but then after some discussion seems to maybe recall it. Him and his both state that he has some memory issues. They both state that they have been slowly progressing as well. Patient's head CT and chest x-ray did not show any acute process, EKG is normal and appears similar to priors. Lab work shows no anemia, no elevated white count, normal renal function electrolytes and normal troponin. Patient has had some fluids. His hypertension has improved. He did not take his lisinopril this morning. We discussed that I think this may be a recurrence of his symptoms. His NIH is 0 Um and with his continued symptoms I suspect that this is not acute process such as a stroke. Patient feels comfortable returning home he was offered meclizine he does not remember feet ever taken anything like this before and he is unsure if he really needs it but was offered a prescription to try if he would like. He was encouraged to contact Dr. Major Friday morning to follow-up. He was also concerned about his elevated blood pressure at home which was in the 180 range with 100 diastolic. I discussed to recheck once daily and if he continues to be elevated to contact his primary care unless he has new symptoms. Symptoms and red flags were discussed for patient to return with him and his . They are both comfortable with this plan. Discharge Plan Departure Patient Disposition: Home Clinical Impression: Lightheadedness Discharge Date/Time: 03/20/19 11:13 Interventions: ED Discharge Assessment Last Done: 03/20/19 11:11 Instructions: DI for Vertigo Activity Restrictions/Additional Instructions: Follow-up with Dr. Major in the next 3-5 days, call Friday for an appointment. Continue your home medications as prescribed. You may take meclizine 1-2 tablets every 6-8 hours for symptoms. This medication can make you sleepy so do not drive, perform hazards activities or make any major decisions while taking it. Return to the emergency department for fevers greater than 100.4 F, sudden severe headaches, new vision changes, difficulty with speech, new weakness or numbness, new chest pain, shortness of breath, passing out, persistent vomiting or other new or concerning symptoms. Prescriptions: New meclizine 25 mg tablet,chewable 25 mg PO BID-QID PRN (Reason: dizziness) Qty: 14 RF: 0 No Action niacin 1,000 MG tablet extended release 500 mg PO BID Qty: 0 RF: 0 atorvastatin [Lipitor] 10 mg tablet 10 mg PO HS Qty: 90 RF: 3 lisinopril 20 mg tablet 20 mg PO BID Qty: 180 RF: 3 aspirin 81 mg Tablet,Delayed Release (Dr/Ec) 81 mg PO BID RF: 0 ibuprofen 800 mg tablet 800 mg PO TID Qty: 30 RF: 0 oxycodone-acetaminophen [Percocet] 5-325 mg tablet 1 tab PO Q4-6H PRN (Reason: pain) Qty: 30 RF: 0 docusate sodium [Colace] 100 mg capsule 100 mg PO BID Qty: 60 RF: 1 Referrals: Td Major MD [Primary Care Provider] -
[2019-03-20] MEDS: SODIUM CHLORIDE 0.9% 1,000 ML 1000 ML IV (09:22)
[2019-03-20 09:32] LABS: Add Manual Diff / Slide Review NO; Basophils Absolute Auto 100 /uL (0-100); Basophils Percent Auto 0.9 % (0-2); Eosinophils Absolute Auto 200 /uL (0-450); Eosinophils Percent Auto 2.2 % (2-4); Hematocrit 42.1 % (41-53); Hemoglobin 14.6 g/dL (13.5-17.5); Lymphocytes Absolute Auto 1500 /uL (1100-4500); Lymphocytes Percent Auto 21.6 % (25-40); Mean Corpuscular HGB Conc 34.7 % (30-36); Mean Corpuscular Hemoglobin 29.6 PG (26-34); Mean Corpuscular Volume 85.3 fL (80-100); Monocytes Absolute Auto 600 /uL (0-900); Monocytes Percent Auto 9.3 % (3-14); Neutrophils Absolute Auto 4600 /uL (1500-7000); Platelet Count 213 X10^3/uL (150-400); Red Blood Cell Count 4.94 X10^6/uL (4.5-5.9); Red Cell Distribution Width 13.9 % (11.6-14.8); White Blood Cell Count 6.9 X10^3/uL (4.5-11.0)
[2019-03-20 09:34] LABS: Alanine Aminotransferase 20 IU/L (21-72); Albumin 3.8 g/dL (3.5-5.0); Albumin Globulin Ratio 1.5 (1.0-2.8); Alkaline Phosphatase 61 U/L (38-126); Aspartate Aminotransferase 19 IU/L (17-59); BUN Creatinine Ratio 24.3 (6-22); Bilirubin Total 0.6 mg/dL (0.2-1.3); Blood Urea Nitrogen 17 mg/dL (9-20); Calcium 9.3 mg/dL (8.4-10.2); Carbon Dioxide 26 mmol/L (22-32); Chloride 106 mmol/L (98-107); Estimated Glomerular Filt Rate > 60.0 mL/min (>60); Globulin 2.6 g/dL (1.7-4.1); Glucose 105 mg/dL (80-110); HEMOLYSIS < 15 (0-50); INR 1.1 (0.9-1.3); Potassium 3.9 mmol/L (3.4-5.1); Prothrombin Time 12.4 SECONDS (10.1-12.7); Sodium 138 mmol/L (137-145); Total Protein 6.4 g/dL (6.3-8.2)
[2019-03-20 09:46] LABS: Troponin I 0.014 ng/mL (0.01-0.034)
[2019-03-20 10:00] VITALS: BP 145/73; PULSE 61; RESP 22; O2SAT 95
[2019-03-20 10:30] VITALS: BP 152/77; PULSE 54; RESP 20; O2SAT 98
[2019-03-20 11:01] VITALS: BP 156/74; PULSE 57; RESP 22; O2SAT 94
== END 2019-03-20 11:13 | disposition home or self-care (01) ==
PROVIDERS: Emergency Provider Emergency Medicine; PCP Family Medicine
DX: R42 Dizziness and giddiness (principal); R03.0 Elevated blood-pressure reading, without diagnosis of hypertension; Z95.818 Presence of other cardiac implants and grafts; Z79.82 Long term (current) use of aspirin; Z86.79 Personal history of other diseases of the circulatory system
CPT/HCPCS: 36591; 70450; 71045; 80053; 81003; 84484; 85025; 85610; 93005; 93041; 96360; 99285

== ENCOUNTER → 2019-12-10 07:00 | Outpatient (CLI) | payer MEDICARE, OTHER, SELFPAY ==
[2019-12-10 08:11] LABS: Add Manual Diff / Slide Review NO; Basophils Absolute Auto 100 /uL (0-100); Basophils Percent Auto 1.1 % (0-2); Eosinophils Absolute Auto 200 /uL (0-450); Eosinophils Percent Auto 2.3 % (2-4); Hematocrit 45.9 % (41-53); Hemoglobin 16.1 g/dL (13.5-17.5); Lymphocytes Absolute Auto 1600 /uL (1100-4500); Mean Corpuscular HGB Conc 35.2 % (30-36); Mean Corpuscular Hemoglobin 30.2 PG (26-34); Mean Corpuscular Volume 85.9 fL (80-100); Monocytes Absolute Auto 600 /uL (0-900); Monocytes Percent Auto 8.7 % (3-14); Neutrophils Absolute Auto 4700 /uL (1500-7000); Neutrophils Percent Auto 65.9 % (50-75); Platelet Count 242 X10^3/uL (150-400); Red Blood Cell Count 5.34 X10^6/uL (4.5-5.9); White Blood Cell Count 7.1 X10^3/uL (4.5-11.0)
[2019-12-10 08:28] LABS: Alanine Aminotransferase 32 IU/L (<50); Albumin 4.3 g/dL (3.5-5.0); Albumin Globulin Ratio 1.4 (1.0-2.8); Alkaline Phosphatase 75 U/L (38-126); Aspartate Aminotransferase 34 IU/L (17-59); BUN Creatinine Ratio 23.8 (6-22); Bilirubin Total 0.6 mg/dL (0.2-1.3); Blood Urea Nitrogen 19 mg/dL (9-20); Calcium 9.7 mg/dL (8.4-10.2); Carbon Dioxide 29 mmol/L (22-32); Chloride 103 mmol/L (98-107); Cholesterol 147 mg/dL (140-199); Estimated Glomerular Filt Rate > 60.0 mL/min (>60); Glucose 101 mg/dL (80-110); HDL Cholesterol 51 mg/dL (40-60); HEMOLYSIS < 15 (0-50); LDL Cholesterol Calculated 77 mg/dL (<100); Potassium 5.1 mmol/L (3.4-5.1); Sodium 140 mmol/L (137-145); Total Protein 7.3 g/dL (6.3-8.2); Triglycerides 94 mg/dL (35-150)
[2019-12-10 08:55] LABS: Prostate Specific Antigen Scrn 1.83 ng/mL (0.1-4.0)
== END ==
PROVIDERS: PCP Family Medicine; Referring Provider Family Medicine; Visit Provider Family Medicine
DX: Z12.5 Encounter for screening for malignant neoplasm of prostate (principal); E78.2 Mixed hyperlipidemia; I10 Essential (primary) hypertension
CPT/HCPCS: 36415; 80053; 80061; 85025; G0103

== ENCOUNTER → 2019-12-16 15:21 | Outpatient (CLI) | payer MEDICARE, OTHER, SELFPAY ==
--- NOTE | 2019-12-16 15:24 | DI.RAD.S_ITS ---
PROCEDURE: XR THORACIC SPINE 3V INDICATIONS: Pain TECHNIQUE: 3 views of the thoracic spine were acquired. COMPARISON: None. FINDINGS: Bones: No fractures or dislocations. No suspicious bony lesions. Multilevel degenerative endplate sclerosis and spurring. Diffuse facet arthropathy. Soft tissues: No paravertebral stripe thickening. IMPRESSION: Diffuse spondylitic changes. No fracture identified Dictated by: Ravi Argueta M.D. on 12/16/2019 at 16:39 Approved by: Ravi Argueta M.D. on 12/16/2019 at 16:40
== END ==
PROVIDERS: PCP Family Medicine; Referring Provider Family Medicine; Visit Provider Family Medicine
DX: M54.6 Pain in thoracic spine (principal); M47.814 Spondylosis without myelopathy or radiculopathy, thoracic region
CPT/HCPCS: 72072

== ENCOUNTER 2020-03-10 14:47 | Emergency (ER) | payer MEDICARE, OTHER, SELFPAY ==
[2020-03-10 15:00] VITALS: BP 187/87; PULSE 64; RESP 18; TEMP 36.8; O2SAT 98; BMI 30.1
--- NOTE | 2020-03-10 15:18 | DI.CT.S_ITS ---
PROCEDURE: CT HEAD/BRAIN WO CON INDICATIONS: glf, ? loc TECHNIQUE: Noncontrast 4.5 mm thick angled axial sections acquired from the foramen magnum to the vertex, with coronal and sagittal reformats. For radiation dose reduction, the following was used: automated exposure control, adjustment of mA and/or kV according to patient size. COMPARISON: [facility], MR, MR HEAD/BRAIN WO CON, 06/08/2018, 7:47. [facility], CT, CT CERVICAL SPINE WO CON, 03/10/2020, 15:34. [facility], CT, CT HEAD/BRAIN WO CON, 03/20/2019, 9:16. FINDINGS: Image quality: Excellent. CSF spaces: Basal cisterns are patent. No extra-axial fluid collections. Ventricles are normal in size and shape. No hyperdense layering intraventricular hemorrhage. Brain: Small foci of intracranial air under the right tentorium, (2/10). This was not present on the prior head CT. No hyperdense blood products identified. There is trace fluid in the right mastoid air cells, (2/9). No midline shift. No intracranial masses or hemorrhage. Cardozo-white matter interface is normal. Skull and face: No conspicuous fracture identified. Sinuses: Fluid in the right mastoid air cells. Left mastoid air cells are clear. Visualized sinuses are clear. IMPRESSION: 1. No hyperdense intracranial blood products identified. 2. New small foci of gas under the right tentorium. Fluid in the right mastoid air cells. These findings raise the possibility of an occult temporal bone fracture. -Recommend dedicated temporal bone CT. Comment: Findings were discussed with the Dia Montes at the time of dictation. Dictated by: Jonathan Desouza M.D. on 03/10/2020 at 15:59 Approved by: Jonathan Desouza M.D. on 03/10/2020 at 16:12
--- NOTE | 2020-03-10 15:18 | DI.CT.S_ITS ---
PROCEDURE: CT CERVICAL SPINE WO CON INDICATIONS: fall, neck pain TECHNIQUE: Noncontrast 3 mm thick sections acquired from the skull base to the T4 level. Sagittal and coronal reformats were then constructed. For radiation dose reduction, the following was used: automated exposure control, adjustment of mA and/or kV according to patient size. COMPARISON: [facility], CT, CT HEAD/BRAIN WO CON, 03/10/2020, 15:34. [facility], CT, C-SPINE WITHOUT CONTRAST, 06/28/2017, 10:53. FINDINGS: Image quality: Excellent. Bones: No cervical fractures or dislocations. No obvious temporal bone fracture within the visualized portions. Visualized superior ribs are intact. Moderate degenerative change in the cervical spine. Soft tissues: Prevertebral soft tissues are normal in thickness. Probable small calcified right thyroid nodule. Carotid bulb atherosclerotic calcifications. No paravertebral hematomas. No apical pneumothoraces. IMPRESSION: No acute osseous abnormality demonstrated. Dictated by: Jonathan Desouza M.D. on 03/10/2020 at 16:13 Approved by: Jonathan Desouza M.D. on 03/10/2020 at 16:18
--- NOTE | 2020-03-10 16:08 | DI.CT.S_ITS ---
PROCEDURE: CT MASTOID TEMPORAL INDICATIONS: GLF, please see Head CT REPORT COMPARISON: None. TECHNIQUE: Noncontrast 0.6 mm thick direct axial and coronal sections acquired through each temporal bone separately. FINDINGS: Image quality: Excellent. External auditory canal: Trace cerumen in the right external auditory canal. Left is clear. Middle ear: The middle ear structures, including the ossicles and tympanic membrane, appear normal. No abnormal fluid or soft tissue density. Inner ear: Inner ear is normally formed and appears unremarkable. Facial nerve appears normal throughout is course. Mastoids: Right mastoid air effusion. The inner margin of the right mastoid appears attenuated. Small adjacent focus of gas as well within the posterior fossa similar to the preceding head CT. No loculated intracranial fluid collection identified. The air does not appear to be within the transverse sinus. Left mastoid is clear. MISCELLANEOUS: Visualized surrounding bones appear unremarkable. Visualized intracranial structures, including the cerebellopontine angle cisterns, appear normal. IMPRESSION: 1. No acute right temporal bone fracture. No acute intracranial hemorrhage seen. 2. Small foci of intracranial gas and right mastoid effusion are again seen. The inner table of the right mastoid may be attenuated. These findings raise the possibility for mastoiditis of uncertain chronicity. The effusion is mild and the middle ear is clear. No loculated intracranial fluid collection identified on this noncontrast examination. It is possible that this air is iatrogenic related to blowing the nose forcefully. -Recommend clinical correlation for fevers and right mastoid pain. -Followup ENT consultation may be helpful. Comment: Findings were discussed with Dia Montes at the time of dictation. Report that the patient is afebrile and the ground level fall was mild. Dictated by: Jonathan Desouza M.D. on 03/10/2020 at 16:54 Approved by: Jonathan eDsouza M.D. on 03/10/2020 at 17:10
--- NOTE | 2020-03-10 16:09 | DI.CT.S_ITS ---
PROCEDURE: CT FACIAL BONES WO CON INDICATIONS: ground level fall, hit back of head, dizzy TECHNIQUE: Noncontrast 2.5 mm thick axial images acquired from the mandible through the frontal sinuses, with coronal and sagittal reformatting. For radiation dose reduction, the following was used: automated exposure control, adjustment of mA and/or kV according to patient size. COMPARISON: [facility], CT, CT HEAD/BRAIN WO CON, 03/10/2020, 15:34. [facility], CT, CT CERVICAL SPINE WO CON, 03/10/2020, 15:34. FINDINGS: Image quality: Excellent. There is redemonstration of gas adjacent to the right tentorium. Small amount of fluid present within the right mastoid air cells, with overlying cortical disruption/fracture, image 74/2. Appearance of the right auditory ossicles within normal limits. No left mastoid air cell fluid is seen. Paranasal sinuses appear clear. IMPRESSION: Redemonstration of foci of intracranial gas within the right posterior fossa, and fluid within the right mastoid air cells. This could reflect subtle acute fracture of the posterior wall of the right mastoid air cells, however recommend clinical correlation to exclude the alternative possibility of right mastoiditis with overlying osteolysis. Dictated by: Ravi Argueta M.D. on 03/10/2020 at 16:39 Approved by: Ravi Argueta M.D. on 03/10/2020 at 16:46
[2020-03-10 17:31] LABS: Add Manual Diff / Slide Review NO; Basophils Absolute Auto 100 /uL (0-100); Basophils Percent Auto 0.7 % (0-2); Eosinophils Absolute Auto 300 /uL (0-450); Eosinophils Percent Auto 3.2 % (2-4); Hematocrit 41.3 % (41-53); Hemoglobin 14.5 g/dL (13.5-17.5); Lymphocytes Absolute Auto 1600 /uL (1100-4500); Lymphocytes Percent Auto 19.8 % (25-40); Mean Corpuscular Hemoglobin 30.3 PG (26-34); Mean Corpuscular Volume 86.4 fL (80-100); Monocytes Absolute Auto 700 /uL (0-900); Monocytes Percent Auto 8.7 % (3-14); Neutrophils Absolute Auto 5500 /uL (1500-7000); Neutrophils Percent Auto 67.6 % (50-75); Platelet Count 208 X10^3/uL (150-400); Red Blood Cell Count 4.78 X10^6/uL (4.5-5.9); Red Cell Distribution Width 14.2 % (11.6-14.8); White Blood Cell Count 8.1 X10^3/uL (4.5-11.0)
[2020-03-10] MEDS: SODIUM CHLORIDE 0.9% 1,000 ML 1000 ML IV (17:32)
[2020-03-10 17:43] LABS: INR 1.1 (0.9-1.3); Prothrombin Time 12.4 SECONDS (10.1-12.7)
[2020-03-10 17:46] LABS: PTT Partial Thromboplastin Tim 31 SECONDS (26.4-36.2)
[2020-03-10 17:50] LABS: Alanine Aminotransferase 14 IU/L (<50); Albumin 4.2 g/dL (3.5-5.0); Albumin Globulin Ratio 1.4 (1.0-2.8); Alkaline Phosphatase 66 U/L (38-126); Aspartate Aminotransferase 26 IU/L (17-59); BUN Creatinine Ratio 25.7 (6-22); Bilirubin Total 0.7 mg/dL (0.2-1.3); Blood Urea Nitrogen 19 mg/dL (9-20); Calcium 9.5 mg/dL (8.4-10.2); Carbon Dioxide 24 mmol/L (22-32); Chloride 106 mmol/L (98-107); Estimated Glomerular Filt Rate > 60.0 mL/min (>60); Globulin 3.1 g/dL (1.7-4.1); Glucose 96 mg/dL (80-110); HEMOLYSIS 17 (0-50); Magnesium 2.1 mg/dL (1.6-2.3); Potassium 4.3 mmol/L (3.4-5.1); Sodium 138 mmol/L (137-145); Total Protein 7.3 g/dL (6.3-8.2)
--- NOTE | 2020-03-10 18:48 | ED.FALL ---
HPI - Fall <FIONA Herrera - Last Filed: 03/10/20 20:28> General Chief Complaint: Fall Stated Complaint: Slipped and fell, hit head on cement floor Time Seen by Provider: 03/10/20 15:05 Source: patient Mode of arrival: Family Vehicle Limitations: no limitations History of Present Illness HPI Narrative: The patient is a 74-year-old male former smoker with history of hyperlipidemia who presents with a chief complaint of ground level fall earlier today at a couple as bathroom. He states he an ortho wet floor sign and slipped, hitting the back of his head on the cement floor. He does not believe that he lost consciousness. He complains of general wooziness, lightheadedness with moving, nausea no vomiting. He does complain of neck pain. He denies any other injuries. This accident occurred at approximately 1:00 p.m.. He states he noted a little bit of a bloody nose on his way back up wonders if it was related to the chemicals used to clean or or allergies. Given age mechanism and symptoms, modified trauma was activated for this patient. He states that he has an abrasion to the back of his head, but is allergic to tetanus vaccination Related Data Home Medications Medication Instructions Recorded Confirmed niacin 500 mg PO BID #0 06/13/11 12/16/19 aspirin 81 mg PO BID 02/03/19 12/16/19 Previous Rx's Medication Instructions Recorded atorvastatin 10 mg tablet See Rx Instructions .ROUTE 03/03/20 .COMPLEX #90 tablet lisinopril 20 mg tablet See Rx Instructions .ROUTE 03/03/20 .COMPLEX #180 tablet Allergies Allergy/AdvReac Type Severity Reaction Status Date / Time tetanus and diphtheria Allergy Mild ILL Verified 03/10/20 15:11 toxoids [tetanus & diphtheria toxoids] Opioids - Morphine Analogues AdvReac Intermediate Nausea Verified 03/10/20 15:11 Review of Systems <FIONA Herrera - Last Filed: 03/10/20 20:28> Review of Systems Narrative: GENERAL: Denies chills, fatigue, malaise, fever, sweats. HEENT: Denies sinus pain, ear pain, sore throat, difficulty swallowing, dizziness. RESPIRATORY: Denies dyspnea, cough, wheezing, hemoptysis, sputum. CARDIOVASCULAR: Denies chest pain, palpitations, orthopnea, edema, GASTROINTESTINAL: Denies nausea, vomiting, abdominal pain, diarrhea, constipation, melena. : Denies dysuria, frequency, incontinence, hematuria, urinary retention. MUSCULOSKELETAL: denies weakness, joint pain, or bony pain SKIN: See HPI NEUROLOGIC: See HPI PSYCHIATRIC: No concerning psychosocial issues. 12 point review of systems is negative except for those stated above Patient History <FIONA Herrera - Last Filed: 03/10/20 20:28> Medical History Arthritis (Acute) Asthma (Chronic) Chicken pox (Resolved) Chronic cough (Chronic ~2004) Coronary artery disease (Chronic ~2002) Easy bruisability (Acute) Enlarged prostate (Acute) Hearing loss (Chronic ~1993) Malaria (Resolved ~2007) Measles (Resolved) Pulmonary hypertension (Chronic ~2002) Seasonal allergies (Chronic) Shoulder pain (Acute) Vision disorder (Chronic) Surgical History Anesthesia (Resolved) History of surgery (Resolved ~1971) Family History Father Heart disease Grandmother Stomach cancer Mother Dementia Social History marital status: household members: spouse occupational status: previously employed Smoking Status: Former smoker alcohol intake: current substance use type: does not use Smoking Status: Former smoker alcohol intake frequency: holidays/special occasions only Substance Use Type: does not use Exam <FIONA Herrera - Last Filed: 03/10/20 20:28> Narrative Exam Narrative: GENERAL: This is a well-nourished, well-developed patient, no acute distress. HEAD: Atraumatic. Normocephalic. No temporal or scalp tenderness. EYES: Pupils equal round and reactive. Extraocular motions intact. No scleral icterus. No injection or drainage. ENT: Nose without bleeding, purulent drainage or septal hematoma. Throat without erythema, tonsillar hypertrophy or exudate. Uvula midline. Airway patent. Bilateral TMs pearly cardozo. No palpation of pinna or bilateral mastoids. No visual abnormality or erythema bilateral ears. NECK: Trachea midline. No JVD or lymphadenopathy. Supple, nontender, no meningeal signs. CARDIOVASCULAR: Regular rate and rhythm RESPIRATORY: Clear to auscultation. Breath sounds equal bilaterally. No wheezes, rales, or rhonchi. No cough. No increased respiratory effort. No accessory muscle use. GASTROINTESTINAL: Abdomen soft, non-tender, nondistended. No hepato-splenomegaly, or palpable masses. No guarding. EXTREMITIES: No clubbing, cyanosis, or edema. No joint tenderness, effusion, or edema noted. BACK: General pain to C-spine palpation. No pain to T or L-spine palpation. NEURO: AOx3. Clear speech. Stable gait. No gross cranial nerve abnormality. Follows commands. Strength is equal upper and lower extremities bilaterally. SKIN: Abrasion noted to back of head. No erythema around ears Initial Vital Signs Initial Vital Signs: Vital Signs Temperature 98.3 F 03/10/20 15:00 Pulse Rate 64 03/10/20 15:00 Respiratory Rate 18 03/10/20 15:00 Blood Pressure 187/87 H 03/10/20 15:00 Pulse Oximetry 98 03/10/20 15:00 <Dashawn Xiong MD - Last Filed: 03/12/20 15:18> Initial Vital Signs Initial Vital Signs: Vital Signs Temperature 98.3 F 03/10/20 15:00 Pulse Rate 64 03/10/20 15:00 Respiratory Rate 18 03/10/20 15:00 Blood Pressure 187/87 H 03/10/20 15:00 Pulse Oximetry 98 03/10/20 15:00 Course <FIONA Herrera - Last Filed: 03/10/20 20:28> Orders Ordered: Discontinued Medications Sodium Chloride (Normal Saline 0.9%) 1,000 mls @ 1,000 mls/hr IV BOLUS ONE Stop: 03/10/20 17:22 Last Admin: 03/10/20 17:32 Dose: 1,000 mls/hr Documented by: JOSEFINA Ondansetron HCl (Zofran Odt) 4 mg SL NOW ONE Stop: 03/10/20 15:19 Last Admin: 03/10/20 18:56 Dose: Not Given Documented by: LISSETT Mendez Consultation #1: I spoke with Dr Ng from [facility] regarding the patient's CT findings including a small foci of intracranial grass and right mastoid effusion. Discussed the possibility for mastoiditis uncertain chronicity, no loculated fluid collection intracranially and the possibility of iatrogenic air related to forceful nose blowing. Dr. Ng suggested follow-up with ENT in a few weeks, strict return precautions. Discussed the possibility of a spontaneous CSF leak and recommended that the patient not blow his nose. Per Dr. Ng, patient does not need admission and or IV antibiotics at this time, just strict return precautions and follow-up. Discussed this at length with the patient and his . They state understanding and have no questions or concerns. Time: 16:30 Vital Signs Vital signs: Vital Signs - 8 hr 03/10/20 15:00 03/10/20 19:02 Temperature 98.3 F Pulse Rate 64 60 Respiratory Rate 18 Blood Pressure 187/87 H 179/86 H Pulse Oximetry 98 97 <Dashawn Xiong MD - Last Filed: 03/12/20 15:18> Orders Ordered: Discontinued Medications Sodium Chloride (Normal Saline 0.9%) 1,000 mls @ 1,000 mls/hr IV BOLUS ONE Stop: 03/10/20 17:22 Last Admin: 03/10/20 17:32 Dose: 1,000 mls/hr Documented by: JOSEFINA Ondansetron HCl (Zofran Odt) 4 mg SL NOW ONE Stop: 03/10/20 15:19 Last Admin: 03/10/20 18:56 Dose: Not Given Documented by: LISSETT Vital Signs Vital signs: Vital Signs - 8 hr 03/10/20 15:00 03/10/20 19:02 Temperature 98.3 F Pulse Rate 64 60 Respiratory Rate 18 Blood Pressure 187/87 H 179/86 H Pulse Oximetry 98 97 MDM - Fall <FIONA Herrera - Last Filed: 03/10/20 20:28> Lab Data Result diagrams: 03/10/20 17:23 03/10/20 17:23 Labs: Lab Results 03/10/20 03/10/20 03/10/20 Range/Units 17:23 17:23 17:23 WBC 8.1 (4.5-11.0) X10^3/uL RBC 4.78 (4.5-5.9) X10^6/uL Hgb 14.5 (13.5-17.5) g/dL Hct 41.3 (41-53) % MCV 86.4 (80-100) fL MCH 30.3 (26-34) PG MCHC 35.0 (30-36) % RDW 14.2 (11.6-14.8) % Plt Count 208 (150-400) X10^3/uL Neut % (Auto) 67.6 (50-75) % Lymph % (Auto) 19.8 L (25-40) % Ocean % (Auto) 8.7 (3-14) % Eos % (Auto) 3.2 (2-4) % Baso % (Auto) 0.7 (0-2) % Neut # (Auto) 5500 (7098-3935) /uL Lymph # (Auto) 1600 (4674-1614) /uL Ocean # (Auto) 700 (0-900) /uL Eos # (Auto) 300 (0-450) /uL Baso # (Auto) 100 (0-100) /uL PT 12.4 (10.1-12.7) SECONDS INR 1.1 (0.9-1.3) APTT 31 (26.4-36.2) SECONDS Sodium 138 (137-145) mmol/L Potassium 4.3 (3.4-5.1) mmol/L Chloride 106 (98-107) mmol/L Carbon Dioxide 24 (22-32) mmol/L BUN 19 (9-20) mg/dL Creatinine 0.74 (0.66-1.25) mg/dL Estimated GFR > 60.0 (>60) mL/min BUN/Creatinine Ratio 25.7 H (6-22) Glucose 96 (80-110) mg/dL Calcium 9.5 (8.4-10.2) mg/dL Magnesium 2.1 (1.6-2.3) mg/dL Total Bilirubin 0.7 (0.2-1.3) mg/dL AST 26 (17-59) IU/L ALT 14 (<50) IU/L Alkaline Phosphatase 66 (38-126) U/L Total Protein 7.3 (6.3-8.2) g/dL Albumin 4.2 (3.5-5.0) g/dL Globulin 3.1 (1.7-4.1) g/dL Albumin/Globulin Ratio 1.4 (1.0-2.8) Imaging Data Mastoid/temporal CT: Radiologist's Impression: [address] [place] [id number] [address] Scan Report Signed Patient: Keny Call FMR#: [id number] : 3Acct:[id number] Age/Sex: 74 / MDate of Service: 03/10/20 Loc: ED Accession Number: [id number] Procedure: CT mastoid temporal Ordering Provider: Dia Montes [employer] PROCEDURE: CT MASTOID TEMPORAL INDICATIONS: GLF, please see Head CT REPORT COMPARISON: None. TECHNIQUE: Noncontrast 0.6 mm thick direct axial and coronal sections acquired through each temporal bone separately. FINDINGS: Image quality: Excellent. External auditory canal: Trace cerumen in the right external auditory canal. Left is clear. Middle ear: The middle ear structures, including the ossicles and tympanic membrane, appear normal. No abnormal fluid or soft tissue density. Inner ear: Inner ear is normally formed and appears unremarkable. Facial nerve appears normal throughout is course. Mastoids: Right mastoid air effusion. The inner margin of the right mastoid appears attenuated. Small adjacent focus of gas as well within the posterior fossa similar to the preceding head CT. No loculated intracranial fluid collection identified. The air does not appear to be within the transverse sinus. Left mastoid is clear. MISCELLANEOUS: Visualized surrounding bones appear unremarkable. Visualized intracranial structures, including the cerebellopontine angle cisterns, appear normal. IMPRESSION: 1. No acute right temporal bone fracture. No acute intracranial hemorrhage seen. 2. Small foci of intracranial gas and right mastoid effusion are again seen. The inner table of the right mastoid may be attenuated. These findings raise the possibility for mastoiditis of uncertain chronicity. The effusion is mild and the middle ear is clear. No loculated intracranial fluid collection identified on this noncontrast examination. It is possible that this air is iatrogenic related to blowing the nose forcefully. -Recommend clinical correlation for fevers and right mastoid pain. -Followup ENT consultation may be helpful. Comment: Findings were discussed with Dia Montes at the time of dictation. Report that the patient is afebrile and the ground level fall was mild. Dictated by: Jonathan Desouza M.D. on 03/10/2020 at 16:54 Approved by: Jonathan Desouza M.D. on 03/10/2020 at 17:[address]: Radiologist's Impression: [address] [place] [address] CT Scan Report Signed Patient: Keny Call FMR#: [id number] : 3Acct:[id number] Age/Sex: 74 / MDate of Service: 03/10/20 Loc: ED Accession Number: [id number] Procedure: CT facial bones wo con Ordering Provider: Dia Montes-GUERITA PROCEDURE: CT FACIAL BONES WO CON INDICATIONS: ground level fall, hit back of head, dizzy TECHNIQUE: Noncontrast 2.5 mm thick axial images acquired from the mandible through the frontal sinuses, with coronal and sagittal reformatting. For radiation dose reduction, the following was used: automated exposure control, adjustment of mA and/or kV according to patient size. COMPARISON: [facility], CT, CT HEAD/BRAIN WO CON, 03/10/2020, 15:34. [facility], CT, CT CERVICAL SPINE WO CON, 03/10/2020, 15:34. FINDINGS: Image quality: Excellent. There is redemonstration of gas adjacent to the right tentorium. Small amount of fluid present within the right mastoid air cells, with overlying cortical disruption/fracture, image 74/2. Appearance of the right auditory ossicles within normal limits. No left mastoid air cell fluid is seen. Paranasal sinuses appear clear. IMPRESSION: Redemonstration of foci of intracranial gas within the right posterior fossa, and fluid within the right mastoid air cells. This could reflect subtle acute fracture of the posterior wall of the right mastoid air cells, however recommend clinical correlation to exclude the alternative possibility of right mastoiditis with overlying osteolysis. Dictated by: Ravi Argueta M.D. on 03/10/2020 at 16:39 Approved by: Ravi Argueta M.D. on 03/10/2020 at 16:46 CT scan - head: Radiologist's Impression: [address] [place] [id number] [address] Scan Report Signed Patient: Keny Call FMR#: [id number] : 3Acct:[id number] Age/Sex: 74 / MDate of Service: 03/10/20 Loc: ED Accession Number: [id number] Procedure: CT head/brain wo con Ordering Provider: Dia MontesBC PROCEDURE: CT HEAD/BRAIN WO CON INDICATIONS: glf, ? loc TECHNIQUE: Noncontrast 4.5 mm thick angled axial sections acquired from the foramen magnum to the vertex, with coronal and sagittal reformats. For radiation dose reduction, the following was used: automated exposure control, adjustment of mA and/or kV according to patient size. COMPARISON: [facility], MR, MR HEAD/BRAIN WO CON, 06/08/2018, 7:47. [facility], CT, CT CERVICAL SPINE WO CON, 03/10/2020, 15:34. [facility], CT, CT HEAD/BRAIN WO CON, 03/20/2019, 9:16. FINDINGS: Image quality: Excellent. CSF spaces: Basal cisterns are patent. No extra-axial fluid collections. Ventricles are normal in size and shape. No hyperdense layering intraventricular hemorrhage. Brain: Small foci of intracranial air under the right tentorium, (2/10). This was not present on the prior head CT. No hyperdense blood products identified. There is trace fluid in the right mastoid air cells, (2/9). No midline shift. No intracranial masses or hemorrhage. Cardozo-white matter interface is normal. Skull and face: No conspicuous fracture identified. Sinuses: Fluid in the right mastoid air cells. Left mastoid air cells are clear. Visualized sinuses are clear. IMPRESSION: 1. No hyperdense intracranial blood products identified. 2. New small foci of gas under the right tentorium. Fluid in the right mastoid air cells. These findings raise the possibility of an occult temporal bone fracture. -Recommend dedicated temporal bone CT. Comment: Findings were discussed with the Dia Montes at the time of dictation. Dictated by: Jonathan Desouza M.D. on 03/10/2020 at 15:59 Approved by: Jonathan Desouza M.D. on 03/10/2020 at 16:12 CT - cervical spine: Radiologist's Impression: [address] [place] [address] [id number] [address] Scan Report Signed Patient: Keny Call FMR#: [id number] : 3Acct:[id number] Age/Sex: 74 / MDate of Service: 03/10/20 Loc: ED Accession Number: [id number] Procedure: CT cervical spine wo con Ordering Provider: Dia Montes PROCEDURE: CT CERVICAL SPINE WO CON INDICATIONS: fall, neck pain TECHNIQUE: Noncontrast 3 mm thick sections acquired from the skull base to the T4 level. Sagittal and coronal reformats were then constructed. For radiation dose reduction, the following was used: automated exposure control, adjustment of mA and/or kV according to patient size. COMPARISON: [facility], CT, CT HEAD/BRAIN WO CON, 03/10/2020, 15:34. [facility], CT, C-SPINE WITHOUT CONTRAST, 06/28/2017, 10:53. FINDINGS: Image quality: Excellent. Bones: No cervical fractures or dislocations. No obvious temporal bone fracture within the visualized portions. Visualized superior ribs are intact. Moderate degenerative change in the cervical spine. Soft tissues: Prevertebral soft tissues are normal in thickness. Probable small calcified right thyroid nodule. Carotid bulb atherosclerotic calcifications. No paravertebral hematomas. No apical pneumothoraces. IMPRESSION: No acute osseous abnormality demonstrated. Dictated by: Jonathan Desouza M.D. on 03/10/2020 at 16:13 Approved by: Jonathan Desouza M.D. on 03/10/2020 at 16:18 MDM Narrative Medical decision making narrative: The patient is a 74-year-old male presents after ground level fall hitting concrete earlier today. Given his symptoms, hitting his head on concrete, combined with his age, a modified trauma was activated. I spoke with Dr. Desouza from Radiology after the patient's head CT and C-spine CT resulted, which was concerning for possible temporal bone fracture. No no intracranial hemorrhage, no C-spine etiology. However given temporal bone fracture possibility face CT and temporal/mastoid CT was obtained. Discussed case with Dr. Xiong. The patient was still noted to have intracranial air, right mastoid effusion, and the possibility of mastoiditis of uncertain chronicity. However the patient has no fevers, no confusion, no ear pain, no erythema he does not clinically have mastoiditis. I spoke with Dr. Ng from [facility] regarding the findings on his CT scans. No need for admission or IV antibiotics at this point time. He states the patient can follow up with ENT in a few weeks, he may have a spontaneous CSF leak. Encouraged the patient to not blow his nose, which the patient states understanding of. Very strict return precautions as per Dr. Ng discussed with the patient including fever, confusion etcetera. Patient has no questions or concerns upon discharge and states understanding return precautions as well as follow-up care. <Dashawn Xiong MD - Last Filed: 03/12/20 15:18> Lab Data Labs: Lab Results 03/10/20 03/10/20 03/10/20 Range/Units 17:23 17:23 17:23 WBC 8.1 (4.5-11.0) X10^3/uL RBC 4.78 (4.5-5.9) X10^6/uL Hgb 14.5 (13.5-17.5) g/dL Hct 41.3 (41-53) % MCV 86.4 (80-100) fL MCH 30.3 (26-34) PG MCHC 35.0 (30-36) % RDW 14.2 (11.6-14.8) % Plt Count 208 (150-400) X10^3/uL Neut % (Auto) 67.6 (50-75) % Lymph % (Auto) 19.8 L (25-40) % Ocean % (Auto) 8.7 (3-14) % Eos % (Auto) 3.2 (2-4) % Baso % (Auto) 0.7 (0-2) % Neut # (Auto) 5500 (7113-1532) /uL Lymph # (Auto) 1600 (5557-1476) /uL Ocean # (Auto) 700 (0-900) /uL Eos # (Auto) 300 (0-450) /uL Baso # (Auto) 100 (0-100) /uL PT 12.4 (10.1-12.7) SECONDS INR 1.1 (0.9-1.3) APTT 31 (26.4-36.2) SECONDS Sodium 138 (137-145) mmol/L Potassium 4.3 (3.4-5.1) mmol/L Chloride 106 (98-107) mmol/L Carbon Dioxide 24 (22-32) mmol/L BUN 19 (9-20) mg/dL Creatinine 0.74 (0.66-1.25) mg/dL Estimated GFR > 60.0 (>60) mL/min BUN/Creatinine Ratio 25.7 H (6-22) Glucose 96 (80-110) mg/dL Calcium 9.5 (8.4-10.2) mg/dL Magnesium 2.1 (1.6-2.3) mg/dL Total Bilirubin 0.7 (0.2-1.3) mg/dL AST 26 (17-59) IU/L ALT 14 (<50) IU/L Alkaline Phosphatase 66 (38-126) U/L Total Protein 7.3 (6.3-8.2) g/dL Albumin 4.2 (3.5-5.0) g/dL Globulin 3.1 (1.7-4.1) g/dL Albumin/Globulin Ratio 1.4 (1.0-2.8) Discharge Plan Departure Patient Disposition: Home Clinical Impression: Neck pain, Fall from ground level, Disorder of right mastoid Concussion Qualifiers: Encounter type: initial encounter Loss of consciousness presence/duration: without LOC Qualified Code(s): S06.0X0A - Concussion without loss of consciousness, initial encounter Discharge Date/Time: 03/10/20 19:04 Instructions: DI for Concussion, How to Prevent Falls, DI for Neck Pain Activity Restrictions/Additional Instructions: Thank you for trusting us with your care today. I am sorry that you had a fall and had to come see us. As I discussed, your head CT shows no acute blood or intracranial bleeding. Your neck CT came back with no acute findings. There was some concern of irregularities of your right mastoid as well as some intracranial gas. I spoke with Dr. Ng from [facility]. He would like you to follow-up with them. Please call to schedule an appointment for a few weeks from now. In the meantime if you develop any fevers, confusion, concerns of infection please come back to the emergency department. Please come back to the ER for any acute concerns. As I discussed, please rest your brain. Take it easy for the next few days. Please follow-up with your primary care provider in the next few days. Prescriptions: No Action niacin 1,000 MG tablet extended release 500 mg PO BID Qty: 0 RF: 0 atorvastatin 10 mg tablet See Rx Instructions .ROUTE .COMPLEX Qty: 90 RF: 1 lisinopril 20 mg tablet See Rx Instructions .ROUTE .COMPLEX Qty: 180 RF: 1 aspirin 81 mg Tablet,Delayed Release (Dr/Ec) 81 mg PO BID RF: 0 Referrals: [facility] [Provider Group] Td Major MD [Primary Care Provider] - Oscar Ng MD [Physician] -
[2020-03-10 19:02] VITALS: BP 179/86; PULSE 60; O2SAT 97
== END 2020-03-10 19:04 | disposition home or self-care (01) ==
PROVIDERS: Emergency Provider Nurse Practitioner Family; PCP Family Medicine
DX: S06.0X0A Concussion without loss of consciousness, initial encounter (principal); M54.2 Cervicalgia; H74.91 Unspecified disorder of right middle ear and mastoid; W18.30XA Fall on same level, unspecified, initial encounter; E78.5 Hyperlipidemia, unspecified
CPT/HCPCS: 36415; 70450; 70480; 70486; 72125; 80053; 83735; 85025; 85610; 85730; 99284

== ENCOUNTER → 2020-03-20 12:37 | Outpatient (CLI) | payer MEDICARE, OTHER, SELFPAY ==
--- NOTE | 2020-03-20 13:22 | DI.RAD.S_ITS ---
PROCEDURE: XR WRIST RT MIN 3V INDICATIONS: Painful wrist TECHNIQUE: 3 views of the wrist were acquired. COMPARISON: None. FINDINGS: Bones: No fractures or dislocations. No suspicious bony lesions. Scaphoid view: Not obtained at the scaphoid visualized appears free of trauma. Degenerative osteoarthritis is moderately severe the base of the first metacarpal. Soft tissues: No suspicious soft tissue calcifications. IMPRESSION: No trauma. 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 Dictated by: Juliano Padgett M.D. on 03/20/2020 at 13:37 Approved by: Juliano Padgett M.D. on 03/20/2020 at 14:17
== END ==
PROVIDERS: PCP Family Medicine; Referring Provider Family Medicine; Visit Provider Family Medicine
DX: M25.531 Pain in right wrist (principal); M19.031 Primary osteoarthritis, right wrist
CPT/HCPCS: 73110

== ENCOUNTER → 2020-04-24 11:34 | Outpatient (CLI) | payer MEDICARE, OTHER, SELFPAY ==
--- NOTE | 2020-04-24 | DI.CT.S_ITS ---
PROCEDURE: CT INTERNAL AUDITORY CANALS BI INDICATIONS: Anosmia,Other specified injuries of head, initial COMPARISON: [facility], CT, CT HEAD/BRAIN WO CON, 03/20/2019, 9:16. [facility], CT, CT MASTOID TEMPORAL, 03/10/2020, 16:11. TECHNIQUE: Noncontrast 0.6 mm thick direct axial and coronal sections acquired through each temporal bone separately. FINDINGS: Image quality: Excellent. RIGHT: External auditory canal: Canal has a normal appearance. Middle ear: The middle ear structures, including the ossicles and tympanic membrane, appear normal. No abnormal fluid or soft tissue density. Inner ear: Inner ear is normally formed and appears unremarkable. Facial nerve appears normal throughout is course. Mastoids: Mastoid air cells are clear. The previous areas of identified fluid within the right mastoid air cells have resolved. There is no appearance of osseous thinning along the posterior margin of the mastoid air cells at the level of the posterior semicircular canal. It is noted that this corresponds to focus of air identified on prior exam of 03/10/20. LEFT: External auditory canal: Canal has a normal appearance. Middle ear: The middle ear structures, including the ossicles and tympanic membrane, appear normal. No abnormal fluid or soft tissue density. Inner ear: Inner ear is normally formed and appears unremarkable. Facial nerve appears normal throughout its course. Mastoids: Mastoid air cells are clear. MISCELLANEOUS: Visualized surrounding bones appear unremarkable. Visualized intracranial structures, including the cerebellopontine angle cisterns, appear normal. IMPRESSION: 1. Interval resolution of previously noted fluid within the right mastoid air cells. 2. Mild appearance of osseous thinning along the posterior margin of the mastoid air cells as described above, at location of air on the immediate post traumatic CT of 03/10/20. Subacute fracture and/or ostiolysis within this region is suspected. Dictated by: Alexandra Koehler M.D. on 04/24/2020 at 16:40 Approved by: Alexandra Koehler M.D. on 04/24/2020 at 16:56
== END ==
PROVIDERS: PCP Family Medicine; Referring Provider Otolaryngology; Visit Provider Otolaryngology
DX: S09.8XXA Other specified injuries of head, initial encounter (principal); R43.0 Anosmia; X58.XXXA Exposure to other specified factors, initial encounter
CPT/HCPCS: 70480

== ENCOUNTER → 2020-08-29 14:59 | Outpatient (CLI) | payer MEDICARE, OTHER, SELFPAY ==
--- NOTE | 2020-08-29 15:03 | DI.RAD.S_ITS ---
PROCEDURE: XR CHEST 2V INDICATIONS: chronic cough TECHNIQUE: 2 views of the chest were acquired. COMPARISON: [facility], , XR CHEST 1V, 03/20/2019, 9:24. [facility], , CHEST 2 VIEW, 09/01/2013, 14:48. FINDINGS: Surgical changes and devices: None. Lungs and pleura: Lungs are clear considering reduced inspiratory volume. No pleural effusions or pneumothorax. Mediastinum: Mediastinal contours are normal. Heart size is normal. Bones and chest wall: No suspicious bony abnormalities. Soft tissues appear unremarkable. IMPRESSION: Reduced inspiratory volume reduces quality of visualization of each lung base but only mild atelectasis is suspected and no pneumonia is seen Dictated by: Juliano Padgett M.D. on 08/29/2020 at 16:29 Approved by: Juliano Padgett M.D. on 08/29/2020 at 16:30
== END ==
PROVIDERS: PCP Family Medicine; Referring Provider Family Medicine; Visit Provider Family Medicine
DX: R05 Cough (principal)
CPT/HCPCS: 71046

== ENCOUNTER 2020-10-09 04:26 | Emergency (ER) | payer MEDICARE, OTHER, SELFPAY ==
[2020-10-09] VITALS (8 sets, daily range): BP systolic 140–167; BP diastolic 76–81; PULSE 77–96; RESP 16–17; TEMP 37.6; O2SAT 93–97; BMI 30.3
--- NOTE | 2020-10-09 04:29 | ED.EXTPRO ---
HPI - Extremity Problem General Chief complaint: Extremity Injury, Lower Stated complaint: left leg cant stand on it and swallen Time Seen by Provider: 10/09/20 04:29 Source: patient Mode of arrival: Wheelchair Limitations: no limitations History of Present Illness HPI Narrative: 75M former smoker with history of HTN and hyperlipidemia presents with the chief complaint of left leg pain and swelling. The patient states for the past 3 days he has had increasing pain and swelling of his left anterior and posterior knee in the absence of any injury. He denies any history of the same but has had episodes of gout in the past. He denies any fever or chills. He does not take blood thinners. He states his pain is significantly worse when trying to ambulate or bend his knee and improves with rest. He states the pain is severe achy to sharp in nature. He denies any redness or warmth. He denies any foot, ankle or hip pain. Related Data Home Medications Medication Instructions Recorded Confirmed niacin 500 mg PO BID #0 06/13/11 08/29/20 aspirin 81 mg PO BID 02/03/19 08/29/20 Previous Rx's Medication Instructions Recorded amlodipine 5 mg tablet 5 mg PO DAILY #90 tab 08/29/20 atorvastatin 10 mg tablet See Rx Instructions .ROUTE 08/29/20 .COMPLEX #90 tablet ketorolac 10 mg PO Q6H PRN #14 tab 10/09/20 Allergies Allergy/AdvReac Type Severity Reaction Status Date / Time tetanus and diphtheria Allergy Mild ILL Verified 08/29/20 16:07 toxoids [tetanus & diphtheria toxoids] Opioids - Morphine Analogues AdvReac Intermediate Nausea Verified 08/29/20 16:07 Review of Systems Constitutional Constitutional: Denies chills, Denies fatigue, Denies fever(s), Denies frequent falls, Denies lethargy and Denies weakness Eyes Eyes: Denies change in vision, Denies eye discharge, Denies irritation and Denies loss of vision ENT Ears, Nose, Mouth, and Throat: Denies change in voice, Denies dizziness, Denies neck pain, Denies sore throat and Denies throat swelling Cardiovascular Cardiovascular: Denies chest pain, Denies irregular heart rhythm, Denies lightheadedness, Denies palpitations, Denies dyspnea, Denies dyspnea on exertion and Denies orthopnea Respiratory Respiratory: Denies cough, Denies dyspnea, Denies dyspnea on exertion and Denies wheezing Gastrointestinal Gastrointestinal: Denies abdominal pain, Denies change in bowel habits, Denies diarrhea, Denies nausea and Denies vomiting Musculoskeletal Musculoskeletal: Reports abnormal gait, Reports arthralgias, Reports joint swelling, Denies neck pain and Denies numbness Integumentary/Breasts Skin/Breast: Denies pruritus, Denies erythema, Denies rash and Denies wounds Neurologic Neurologic: Reports abnormal gait, Denies behavioral changes, Denies confusion, Denies dizziness, Denies frequent falls, Denies loss of vision, Denies numbness and Denies weakness Psychiatric Psychiatric: Denies anxiety, Denies behavioral changes, Denies confusion, Denies depression, Denies homicidal ideation and Denies suicidal ideation Endocrine Endocrine: Denies fatigue, Denies flushing and Denies palpitations Hematologic/Lymphatic Hematologic/Lymphatic: Denies easy bruising Allergic/Immunologic Allergic/Immunologic: Denies urticaria, Denies throat swelling and Denies wheezing Patient History Medical History Arthritis Asthma Chicken pox Chronic cough (~2004) Coronary artery disease (~2002) Easy bruisability Enlarged prostate Hearing loss (~1993) Malaria (~2007) Measles Pulmonary hypertension (~2002) Seasonal allergies Shoulder pain Vision disorder Surgical History Anesthesia History of surgery (~1971) Family History Father Heart disease Grandmother Stomach cancer Mother Dementia Social History marital status: household members: spouse occupational status: previously employed Smoking Status: Former smoker alcohol intake: current substance use type: does not use Smoking Status: Former smoker alcohol intake frequency: holidays/special occasions only Substance Use Type: does not use Exam Narrative Exam Narrative: GEN: AOx3 and in mild distress, answers with wheelchair and limps to the car. Very pleasant, smiling and joking, clearly in an EYES: Pupils are equal, round, and reactive to light and accommodation. Extraoccular muscles are intact bilaterally. There is no subconjunctival hemorrhage or exudate. CHEST: Lungs are clear to auscultation bilaterally and free of wheezes, rales, or rhonchi. Heart rate is regular rhythm, there are no murmurs, clicks, rubs, or gallops. There is no chest wall tenderness. ABD: Abdomen is soft and nontender. There is no guarding or rebound. Bowel sounds are normal in all 4 quadrants. There is no mass or organomegaly. EXT: Left knee with moderate effusion, no erythema, painful passive and active range of motion good her patient complains the most significant pain is in the popliteal region. No pain with calf squeeze or flexion-extension of the ankle or in his foot there was is warm, pink with cap refill less than 2 seconds, appropriate range of motion, strength and sensation. Otherwise, Full painless ROM of all extremities with no loss of sensation or strength. SKIN: Warm, pink, and dry. No erythema or rash Initial Vital Signs Initial Vital Signs: Vital Signs Pulse Rate 91 H 10/09/20 04:36 Pulse Oximetry 96 10/09/20 04:36 Procedures Joint Aspiration Joint Asp./Inject. 1: Time Out Performed: Yes Side of body: left Joint Aspirated: knee Ultrasound Guidance: No Skin Prep: Chlorhexidine Local Anesthetic: bupivacaine 0.25% Amount of anesthesia used (mL): 4 Needle Size Used: 22G Fluid Obtained: clear (straw colored) Total fluid obtained (mL): 30 Patient Tolerated Procedure: Well Complications: none Course Orders Ordered: ED Orders 10/09/20 04:34 US periph venous low extrem lt Stat 10/09/20 04:50 Basic Metabolic Panel Stat Body Fluid Culture Stat C-Reactive Protein Quant Stat Cell Count w Diff Body Fluid Stat Complete Blood Count AUTO DIFF Stat Crystals Body Fluid - IN-HOUSE Stat D Dimer Stat Erythrocyte Sedimentation Rate Stat Prothrombin Time INR Stat Uric Acid Stat 10/09/20 06:24 XR knee LT 3V Stat Discontinued Medications Bupivacaine HCl (Bupivacaine 0.5% (Pf) Vial) 5 ml SUBCUT NOW ONE Stop: 10/09/20 04:41 Last Admin: 10/09/20 05:10 Dose: 5 ml Documented by: Indomethacin (Indomethacin 25 Mg Capsule) 25 mg PO NOW ONE Stop: 10/09/20 04:58 Last Admin: 10/09/20 05:45 Dose: 25 mg Documented by: Vital Signs Vital signs: Vital Signs - 8 hr 10/09/20 04:36 10/09/20 04:39 10/09/20 05:44 Temperature 99.6 F Pulse Rate 91 H 96 H 82 Respiratory Rate 17 16 Blood Pressure 167/81 H 151/78 H Pulse Oximetry 96 96 97 10/09/20 05:51 10/09/20 06:00 10/09/20 06:30 Temperature Pulse Rate 78 77 81 Respiratory Rate Blood Pressure 140/76 Pulse Oximetry 95 94 95 10/09/20 07:00 10/09/20 07:09 Temperature Pulse Rate 77 82 Respiratory Rate Blood Pressure 149/76 H Pulse Oximetry 93 95 MDM - Extremity (Nontraumatic) Lab Data Result diagrams: 10/09/20 04:50 10/09/20 04:50 Labs: Lab Results 10/09/20 10/09/20 10/09/20 Range/Units 04:50 04:50 04:50 WBC 11.6 H (4.5-11.0) X10^3/uL RBC 5.13 (4.5-5.9) X10^6/uL Hgb 14.8 (13.5-17.5) g/dL Hct 43.9 (41-53) % MCV 85.6 (80-100) fL MCH 28.9 (26-34) PG MCHC 33.8 (30-36) % RDW 13.9 (11.6-14.8) % Plt Count 249 (150-400) X10^3/uL Neut % (Auto) 77.5 H (50-75) % Lymph % (Auto) 13.0 L (25-40) % [place] % (Auto) 7.7 (3-14) % Eos % (Auto) 1.3 L (2-4) % Baso % (Auto) 0.5 (0-2) % Neut # (Auto) 9000 H (4820-4870) /uL Lymph # (Auto) 1500 (2488-9305) /uL [place] # (Auto) 900 (0-900) /uL Eos # (Auto) 100 (0-450) /uL Baso # (Auto) 100 (0-100) /uL ESR (0-15) MM/HR PT (10.1-12.7) SECONDS INR (0.9-1.3) D-Dimer 331 H (<230) ng/mL Sodium (137-145) mmol/L Potassium (3.4-5.1) mmol/L Chloride (98-107) mmol/L Carbon Dioxide (22-32) mmol/L BUN (9-20) mg/dL Creatinine (0.66-1.25) mg/dL Estimated GFR (>60) mL/min BUN/Creatinine Ratio (6-22) Glucose (80-110) mg/dL Uric Acid 5.1 (3.5-8.5) mg/dL Calcium (8.4-10.2) mg/dL C-Reactive Protein (<1.0) mg/dL Fluid Color Fluid Appearance Fluid RBC /uL Fld Tot Nucleated Cell /uL Fluid Crystals (NONE) Body Fluid Clot 10/09/20 10/09/20 10/09/20 Range/Units 04:50 04:50 04:50 WBC (4.5-11.0) X10^3/uL RBC (4.5-5.9) X10^6/uL Hgb (13.5-17.5) g/dL Hct (41-53) % MCV (80-100) fL MCH (26-34) PG MCHC (30-36) % RDW (11.6-14.8) % Plt Count (150-400) X10^3/uL Neut % (Auto) (50-75) % Lymph % (Auto) (25-40) % [place] % (Auto) (3-14) % Eos % (Auto) (2-4) % Baso % (Auto) (0-2) % Neut # (Auto) (1065-8768) /uL Lymph # (Auto) (5281-4151) /uL [place] # (Auto) (0-900) /uL Eos # (Auto) (0-450) /uL Baso # (Auto) (0-100) /uL ESR 14 (0-15) MM/HR PT 13.3 H (10.1-12.7) SECONDS INR 1.2 (0.9-1.3) D-Dimer (<230) ng/mL Sodium 138 (137-145) mmol/L Potassium 4.2 (3.4-5.1) mmol/L Chloride 105 (98-107) mmol/L Carbon Dioxide 29 (22-32) mmol/L BUN 18 (9-20) mg/dL Creatinine 0.85 (0.66-1.25) mg/dL Estimated GFR > 60.0 (>60) mL/min BUN/Creatinine Ratio 21.2 (6-22) Glucose 120 H (80-110) mg/dL Uric Acid (3.5-8.5) mg/dL Calcium 9.3 (8.4-10.2) mg/dL C-Reactive Protein 1.8 H (<1.0) mg/dL Fluid Color Fluid Appearance Fluid RBC /uL Fld Tot Nucleated Cell /uL Fluid Crystals (NONE) Body Fluid Clot 10/09/20 10/09/20 Range/Units 04:50 04:50 WBC (4.5-11.0) X10^3/uL RBC (4.5-5.9) X10^6/uL Hgb (13.5-17.5) g/dL Hct (41-53) % MCV (80-100) fL MCH (26-34) PG MCHC (30-36) % RDW (11.6-14.8) % Plt Count (150-400) X10^3/uL Neut % (Auto) (50-75) % Lymph % (Auto) (25-40) % [place] % (Auto) (3-14) % Eos % (Auto) (2-4) % Baso % (Auto) (0-2) % Neut # (Auto) (6740-6417) /uL Lymph # (Auto) (5898-7424) /uL [place] # (Auto) (0-900) /uL Eos # (Auto) (0-450) /uL Baso # (Auto) (0-100) /uL ESR (0-15) MM/HR PT (10.1-12.7) SECONDS INR (0.9-1.3) D-Dimer (<230) ng/mL Sodium (137-145) mmol/L Potassium (3.4-5.1) mmol/L Chloride (98-107) mmol/L Carbon Dioxide (22-32) mmol/L BUN (9-20) mg/dL Creatinine (0.66-1.25) mg/dL Estimated GFR (>60) mL/min BUN/Creatinine Ratio (6-22) Glucose (80-110) mg/dL Uric Acid (3.5-8.5) mg/dL Calcium (8.4-10.2) mg/dL C-Reactive Protein (<1.0) mg/dL Fluid Color Pale yellow Fluid Appearance Cloudy Fluid RBC 3283 /uL Fld Tot Nucleated Cell 08939 /uL Fluid Crystals None present (NONE) Body Fluid Clot No clots present Imaging Data Extremity x-ray #1: Radiologist's Impression: No acute traumatic injury is found Discharge Plan Departure Patient Disposition: Home Clinical Impression: Effusion of knee joint, left Chao cyst Qualifiers: Laterality: left Qualified Code(s): M71.22 - Synovial cyst of popliteal space [Chao], left knee Instructions: Chao Cyst, DI for Knee Pain Activity Restrictions/Additional Instructions: *You have been diagnosed with [left knee pain due to effusion and complex Chao's cyst] *What to do: *Take medications as directed *Follow up with [facility], call for an appointment. Let them know you were seen in the Emergency Department and that we ask that you be seen in follow up. Tell them Dr. Avila spoke with Dr. Joshi *Return to ER if you should have any new, worsening or concerning symptoms Prescriptions: New ketorolac 10 mg tablet 10 mg PO Q6H PRN (Reason: pain) Qty: 14 RF: 0 No Action niacin 1,000 MG tablet extended release 500 mg PO BID Qty: 0 RF: 0 amlodipine 5 mg tablet 5 mg PO DAILY Qty: 90 RF: 5 atorvastatin 10 mg tablet See Rx Instructions .ROUTE .COMPLEX Qty: 90 RF: 3 aspirin 81 mg Tablet,Delayed Release (Dr/Ec) 81 mg PO BID RF: 0 Referrals: dT Major MD [Primary Care Provider] - Damien Joshi MD [Physician] -
--- NOTE | 2020-10-09 04:34 | DI.US.S_ITS ---
PROCEDURE: US PERIPH VENOUS LOW EXTREM LT INDICATIONS: LEFT POPLITEAL FOSSA PAIN TECHNIQUE: Real-time imaging, as well as color and pulse Doppler interrogation, were performed of the lower extremity deep veins from the inguinal ligament to the popliteal fossa. COMPARISON: None. FINDINGS: The common femoral, femoral and popliteal veins are normally compressible, and free of intraluminal thrombus. Color and pulse Doppler demonstrate normal phasic intraluminal flow. There is normal augmentation response to distal compression maneuver. 5.4 x 1.8 x 2 point 0 centimeter left popliteal lesion which has heterogeneous echotexture.. Color Doppler evaluation demonstrates minimal internal vascularity associated with the mass. IMPRESSION: 1. No evidence of deep vein thrombosis involving the left lower extremity. 2. 5.4 by 1.8 x 2.0 centimeter left popliteal lesion. Recommend MRI of the left knee to differentiate mass, hematoma and complex popliteal cyst. Dictated by: Maribell Cadena MD, PhD on 10/09/2020 at 8:20 Approved by: Maribell Cadena MD, PhD on 10/09/2020 at 8:27
[2020-10-09] MEDS: BUPIVACAINE 0.5% (PF) VIAL 5 ML SUBCUT (05:10)
[2020-10-09 05:18] LABS: Add Manual Diff / Slide Review NO; Basophils Absolute Auto 100 /uL (0-100); Basophils Percent Auto 0.5 % (0-2); Eosinophils Absolute Auto 100 /uL (0-450); Eosinophils Percent Auto 1.3 % (2-4); Hematocrit 43.9 % (41-53); Hemoglobin 14.8 g/dL (13.5-17.5); Lymphocytes Absolute Auto 1500 /uL (1100-4500); Mean Corpuscular HGB Conc 33.8 % (30-36); Mean Corpuscular Hemoglobin 28.9 PG (26-34); Mean Corpuscular Volume 85.6 fL (80-100); Monocytes Absolute Auto 900 /uL (0-900); Monocytes Percent Auto 7.7 % (3-14); Neutrophils Absolute Auto 9000 /uL (1500-7000); Neutrophils Percent Auto 77.5 % (50-75); Platelet Count 249 X10^3/uL (150-400); Red Blood Cell Count 5.13 X10^6/uL (4.5-5.9); Red Cell Distribution Width 13.9 % (11.6-14.8); White Blood Cell Count 11.6 X10^3/uL (4.5-11.0)
[2020-10-09 05:28] LABS: Uric Acid 5.1 mg/dL (3.5-8.5)
[2020-10-09 05:29] LABS: BUN Creatinine Ratio 21.2 (6-22); Blood Urea Nitrogen 18 mg/dL (9-20); Calcium 9.3 mg/dL (8.4-10.2); Carbon Dioxide 29 mmol/L (22-32); Chloride 105 mmol/L (98-107); Estimated Glomerular Filt Rate > 60.0 mL/min (>60); Glucose 120 mg/dL (80-110); HEMOLYSIS < 15 (0-50); INR 1.2 (0.9-1.3); Potassium 4.2 mmol/L (3.4-5.1); Prothrombin Time 13.3 SECONDS (10.1-12.7); Sodium 138 mmol/L (137-145)
[2020-10-09 05:38] LABS: D Dimer 331 ng/mL (<230)
[2020-10-09 05:41] LABS: C-Reactive Protein Quant 1.8 mg/dL (<1.0)
[2020-10-09] MEDS: INDOMETHACIN 25 MG CAPSULE PO (05:45)
[2020-10-09 05:51] LABS: Erythrocyte Sedimentation Rate 14 MM/HR (0-15)
--- NOTE | 2020-10-09 06:24 | DI.RAD.S_ITS ---
PROCEDURE: XR KNEE LT 3V INDICATIONS: knee pain, effusion TECHNIQUE: 3 views of the knee were acquired. COMPARISON: None. FINDINGS: Bones: No fractures or dislocations. No suspicious bony lesions. Mild tricompartment osteoarthritis. Soft tissues: Small suprapatellar joint effusion. Chondrocalcinosis noted. IMPRESSION: 1. Small nonspecific suprapatellar joint effusion. 2. Chondrocalcinosis. Finding is nonspecific, however differential includes CPPD, hemochromatosis and hyperparathyroidism. Recommend correlation with clinical and laboratory data. 3. Mild osteoarthritis. Dictated by: Maribell Cadena MD, PhD on 10/09/2020 at 9:07 Approved by: Maribell Cadena MD, PhD on 10/09/2020 at 9:08
[2020-10-09 06:38] LABS: Body Fluid Red Blood Cells 3283 /uL; Body Fluid Tot Nucleated Cells 11238 /uL
[2020-10-09 06:41] LABS: Body Fluid Appearance CLOUDY; Body Fluid Clotted? NO CLOTS PRESENT; Body Fluid Color PALE YELLOW
[2020-10-09 07:16] LABS: Crystals Body Fluid - IN-HOUSE NONE Present
[2020-10-09 07:47] LABS: Polynuclear WBC Body Fluid 87 %
[2020-10-09 07:48] LABS: Eosinophils Body Fluid 0 %; Mononuclear WBC Body Fluid 13 %; Other Cells Body Fluid 0 %
== END 2020-10-09 07:21 | disposition home or self-care (01) ==
PROVIDERS: Emergency Provider Emergency Medicine; PCP Family Medicine
DX: M25.462 Effusion, left knee (principal); M25.562 Pain in left knee
CPT/HCPCS: 20610; 36415; 73562; 80048; 84550; 85025; 85379; 85610; 85651; 86140; 87070; 87075; 87205; 89051; 89060; 93971; 96372; 99284

== ENCOUNTER 2020-12-17 02:34 | Emergency (ER) | payer MEDICARE, OTHER, SELFPAY ==
--- NOTE | 2020-12-17 02:51 | DI.RAD.S_ITS ---
PROCEDURE: XR RIBS LT MIN 3V W CXR1V INDICATIONS: fall 1 week ago, very tender to palp to left lower rib near TECHNIQUE: 3 views of the left ribs were acquired, along with a single view chest. COMPARISON: None. FINDINGS: Surgical changes and devices: None. Bones and chest wall: There is mild irregularity the anterolateral aspects of the left 7th and 10th ribs without traversing lucency. No suspicious bony lesions. Overlying soft tissues appear unremarkable. Lungs and pleura: No pleural effusions or pneumothorax. Lungs appear clear. Mediastinum: Mediastinal contours appear normal. Heart size is normal. IMPRESSION: Possible minimally displaced fractures of the left 7th and 10th ribs, of uncertain chronicity. Concordant with preliminary interpretation. Dictated by: Tonio Kang M.D. on 12/17/2020 at 8:02 Approved by: Tonio Kang M.D. on 12/17/2020 at 8:04
[2020-12-17 02:52] VITALS: BP 140/80; PULSE 105; RESP 20; TEMP 36.6; O2SAT 97; BMI 29.2
--- NOTE | 2020-12-17 03:19 | ED.FALL ---
HPI - Fall General Chief Complaint: Fall Stated Complaint: fall/back pain/spasms bakers cyst Time Seen by Provider: 12/17/20 03:01 Source: patient Mode of arrival: Ambulatory Limitations: no limitations History of Present Illness HPI Narrative: Patient is a 75-year-old male with history of coronary artery disease who presents with left-sided rib pain ongoing for 1 week. He says it started when he tripped over a rug and landed on his left side. No head injury or other injury. He states he has been using a back brace at home which does seem to help but also seems to exacerbate the problem at the same time. He feels like he cannot take a deep breath due to pain. It is certainly worse with movement. MD complaint: fall Onset (ago): week(s) (1) Fall from: standing Fall witnessed: yes, by family Place fall occurred: home Loss of consciousness: none Related Data Home Medications Medication Instructions Recorded Confirmed niacin 500 mg PO BID #0 06/13/11 08/29/20 aspirin 81 mg PO BID 02/03/19 08/29/20 Previous Rx's Medication Instructions Recorded amlodipine 5 mg tablet 5 mg PO DAILY #90 tab 08/29/20 atorvastatin 10 mg tablet See Rx Instructions .ROUTE 08/29/20 .COMPLEX #90 tablet ketorolac 10 mg PO Q6H PRN #14 tab 10/09/20 cyclobenzaprine 5 mg PO TID PRN #10 tab 12/17/20 ketorolac 10 mg PO TID PRN #10 tab 12/17/20 Allergies Allergy/AdvReac Type Severity Reaction Status Date / Time tetanus and diphtheria Allergy Mild ILL Verified 08/29/20 16:07 toxoids [tetanus & diphtheria toxoids] Opioids - Morphine Analogues AdvReac Intermediate Nausea Verified 08/29/20 16:07 Review of Systems Review of Systems Narrative: GENERAL: Denies chills, fatigue, malaise, fever, sweats, travel HEENT: Denies sinus pain, ear pain, sore throat, difficulty swallowing, neck pain RESPIRATORY: See HPI CARDIOVASCULAR: Denies chest pain, palpitations, orthopnea, edema GASTROINTESTINAL: Denies nausea, vomiting, abdominal pain, diarrhea, constipation, melena. : Denies dysuria, frequency, incontinence, hematuria, urinary retention, flank pain. MUSCULOSKELETAL: Denies weakness, joint pain, or bony pain SKIN: No rash, no erythema, no pruritus NEUROLOGIC: Denies weakness, dizziness, headache, numbness, change in speech, confusion PSYCHIATRIC: No concerning psychosocial issues. 12 point review of systems is negative except for those stated above and HPI Patient History Medical History (Updated 12/17/20 @ 04:13 by Taylor Romero DO) Arthritis Asthma Chicken pox Chronic cough (~2004) Coronary artery disease (~2002) Easy bruisability Enlarged prostate Hearing loss (~1993) Malaria (~2007) Measles Pulmonary hypertension (~2002) Seasonal allergies Shoulder pain Vision disorder Surgical History Anesthesia History of surgery (~1971) Family History Father Heart disease Grandmother Stomach cancer Mother Dementia Social History marital status: household members: spouse occupational status: previously employed Smoking Status: Former smoker alcohol intake: current substance use type: does not use Smoking Status: Former smoker alcohol intake frequency: holidays/special occasions only Substance Use Type: does not use Exam Initial Vital Signs Initial Vital Signs: Vital Signs Temperature 97.8 F 12/17/20 02:52 Pulse Rate 105 H 12/17/20 02:52 Respiratory Rate 20 12/17/20 02:52 Blood Pressure 140/80 12/17/20 02:52 Pulse Oximetry 97 12/17/20 02:52 GENERAL: Well-appearing, well-nourished and in no acute distress. HEENT: Head atraumatic,EOMI, pupils reactive, face symmetric, moist mucous membranes CARDIOVASCULAR: Regular rate and rhythm without murmurs, rubs or gallops. RESPIRATORY: Breath sounds equal bilaterally, no wheezes rales or rhonchi. The pain is pinpoint on the left lateral anterior side. No paradoxical movement no erythema. ABDOMEN: Soft, nontender. Normoactive bowel sounds all 4 quadrants. No guarding or rebound. EXTREMITIES: Normal range of motion, no clubbing or edema. Neurovascularly intact NEUROLOGICAL: Alert and oriented x4.Normal gait and speech. Cranial nerves II through XII grossly intact. SKIN: Warm, dry, no laceration, no petechiae, no rashes or lesions. Course Orders Ordered: ED Orders 12/17/20 02:51 XR ribs LT min 3V w CXR1V Stat Discontinued Medications Cyclobenzaprine HCl (Cyclobenzaprine 10 Mg Prepack) 1 bottle MISC SEEINSTR ONE Stop: 12/17/20 04:05 Last Admin: 12/17/20 04:12 Dose: 1 bottle Documented by: Ketorolac Tromethamine (Ketorolac 60 Mg/2 Ml Vial) 30 mg IM NOW ONE Stop: 12/17/20 04:03 Last Admin: 12/17/20 04:11 Dose: 30 mg Documented by: Vital Signs Vital signs: Vital Signs - 8 hr 12/17/20 02:52 12/17/20 04:49 Temperature 97.8 F Pulse Rate 105 H 99 H Respiratory Rate 20 20 Blood Pressure 140/80 136/91 H Pulse Oximetry 97 96 MDM - Fall Imaging Data Chest x-ray: Radiologist's Impression: Left rib x-ray is preliminary report: There is mild deformity of distal aspect of 7th and 10th ribs although I do not see definite fracture lines these findings may be chronic. Comparison with any alert outside studies may be beneficial MDM Narrative Medical decision making narrative: High suspicion for fracture based on patient's symptoms. He was taught how to use incentive spirometer. He had good pain relief with ketorolac last time and is requesting that again this time. Will also give him Flexeril to see if it helps his obvious muscle spasm, he is unable to take opiates because they make him nauseous.. Discharge Plan Departure Patient Disposition: Home Clinical Impression: Left rib fracture Qualifiers: Encounter type: initial encounter Rib fracture type: multiple ribs Fracture type: closed Qualified Code(s): S22.42XA - Multiple fractures of ribs, left side, initial encounter for closed fracture Instructions: Rib Fracture Activity Restrictions/Additional Instructions: *You have been diagnosed with *What to do: Increase activity as tolerated. Expect to have pain persists but should start to improve. Recommend splinting and using a pillow instead of a back brace is to help with pain. Use incentive spirometer 5-10 times an hour *Continue to take medications as directed--> SENT TO [facility] [place] Ketorolac 10 mg every 6 hours if needed for [id number] pain to not combine with other NSAIDs such as ibuprofen, Aleve, Advil, naproxen etc Flexeril 5 mg every 8 hours if needed for muscle spasm *Follow up with your primary care provider in 2-3 days *Return to ER if you should have increasing pain, shortness of breath or any new, worsening or concerning symptoms Prescriptions: New ketorolac 10 mg tablet 10 mg PO TID PRN (Reason: pain) Qty: 10 RF: 0 cyclobenzaprine 5 mg tablet 5 mg PO TID PRN (Reason: muscle spasm) Qty: 10 RF: 0 No Action niacin 1,000 MG tablet extended release 500 mg PO BID Qty: 0 RF: 0 amlodipine 5 mg tablet 5 mg PO DAILY Qty: 90 RF: 5 atorvastatin 10 mg tablet See Rx Instructions .ROUTE .COMPLEX Qty: 90 RF: 3 aspirin 81 mg Tablet,Delayed Release (Dr/Ec) 81 mg PO BID RF: 0 ketorolac 10 mg tablet 10 mg PO Q6H PRN (Reason: pain) Qty: 14 RF: 0 Referrals: Td Major MD [Primary Care Provider] - Yusef Robles DO [Physician] -
[2020-12-17] MEDS: KETOROLAC 60 MG/2 ML VIAL 30 MG IM (04:11)
[2020-12-17] MEDS: CYCLOBENZAPRINE 10 MG PREPACK 1 BOTTLE MISC (04:12)
[2020-12-17 04:49] VITALS: BP 136/91; PULSE 99; RESP 20; O2SAT 96
== END 2020-12-17 04:30 | disposition home or self-care (01) ==
PROVIDERS: Emergency Provider Emergency Medicine; PCP Family Medicine
DX: S22.42XA Multiple fractures of ribs, left side, initial encounter for closed fracture (principal); I25.10 Atherosclerotic heart disease of native coronary artery without angina pectoris; Z79.82 Long term (current) use of aspirin; W19.XXXA Unspecified fall, initial encounter
CPT/HCPCS: 71101; 96372; 99283; J1885

== ENCOUNTER → 2020-12-20 16:01 | Outpatient (CLI) | payer MEDICARE, OTHER, SELFPAY ==
--- NOTE | 2020-12-20 16:03 | DI.US.S_ITS ---
PROCEDURE: US PERIPH VENOUS LOW EXTREM BI INDICATIONS: LLE pain, edema and warm to touch s/p fall TECHNIQUE: Real-time imaging, as well as color and pulse Doppler interrogation, were performed of the deep veins of both legs from the inguinal ligament to the popliteal fossa. COMPARISON: None. FINDINGS: Right: The common femoral, femoral and popliteal veins are normally compressible, and free of intraluminal thrombus. Color and pulse Doppler demonstrate normal phasic intravascular flow. There is normal augmentation response to distal compression maneuver. Left: The common femoral, femoral and popliteal veins are normally compressible, and free of intraluminal thrombus. Color and pulse Doppler demonstrate normal phasic intravascular flow. There is normal augmentation response to distal compression maneuver. IMPRESSION: 1. No evidence of deep venous thrombosis in the right or left lower extremity. Dictated by: Tommy Ontiveros M.D. on 12/20/2020 at 16:35 Approved by: Tommy Ontiveros M.D. on 12/20/2020 at 16:37
== END ==
PROVIDERS: PCP Family Medicine; Referring Provider Nurse Practitioner; Visit Provider Nurse Practitioner
DX: M79.605 Pain in left leg (principal); R60.0 Localized edema; Z91.81 History of falling
CPT/HCPCS: 93970

== ENCOUNTER → 2020-12-20 16:04 | Outpatient (CLI) | payer MEDICARE, OTHER, SELFPAY ==
--- NOTE | 2020-12-20 16:06 | DI.RAD.S_ITS ---
PROCEDURE: XR ANKLE LT MIN 3V INDICATIONS: pain with range of motion, unable to bear weight. TECHNIQUE: 3 views of the ankle were acquired. COMPARISON: None. FINDINGS: Bones: No fractures or dislocations. Ankle mortise is normally aligned. No suspicious bony lesions. Soft tissues: No tibiotalar joint effusion. Achilles tendon appears normal. There is soft tissue swelling over the lateral malleolus. IMPRESSION: Lateral malleolus soft tissue swelling. Soft tissue swelling is greater at the medial malleolus. Please correlate for whether trauma has occurred and when. A hidden fracture or healing fracture could produce the symptoms and swelling noted. Degenerative changes are present at the tibiotalar joint and the hindfoot on the lateral view, where plantar fascia insertion spur is minimal but a Achilles tendon insertion spur is [id number] in size. Depending on the clinical status follow-up by MR scanning may be warranted especially if hidden fracture or ligamentous injury is suspected.. Dictated by: Juliano Padgett M.D. on 12/20/2020 at 16:52 Approved by: Juliano Padgett M.D. on 12/20/2020 at 16:55
== END ==
PROVIDERS: PCP Family Medicine; Referring Provider Nurse Practitioner; Visit Provider Nurse Practitioner
DX: M25.572 Pain in left ankle and joints of left foot (principal); M79.89 Other specified soft tissue disorders; W18.30XA Fall on same level, unspecified, initial encounter; M79.605 Pain in left leg; R60.0 Localized edema; Z91.81 History of falling
CPT/HCPCS: 73610; 93970

== ENCOUNTER → 2020-12-26 07:13 | Outpatient (CLI) | payer MEDICARE, OTHER, SELFPAY ==
[2020-12-26 08:11] LABS: Add Manual Diff / Slide Review NO; Basophils Absolute Auto 100 /uL (0-100); Basophils Percent Auto 0.7 % (0-2); Eosinophils Absolute Auto 200 /uL (0-450); Eosinophils Percent Auto 2.3 % (2-4); Hemoglobin 14.1 g/dL (13.5-17.5); Lymphocytes Absolute Auto 1500 /uL (1100-4500); Lymphocytes Percent Auto 18.2 % (25-40); Mean Corpuscular HGB Conc 33.5 % (30-36); Mean Corpuscular Hemoglobin 28.7 PG (26-34); Mean Corpuscular Volume 85.6 fL (80-100); Monocytes Absolute Auto 600 /uL (0-900); Monocytes Percent Auto 7.6 % (3-14); Neutrophils Absolute Auto 5800 /uL (1500-7000); Neutrophils Percent Auto 71.2 % (50-75); Platelet Count 327 X10^3/uL (150-400); Red Cell Distribution Width 13.6 % (11.6-14.8); White Blood Cell Count 8.2 X10^3/uL (4.5-11.0)
[2020-12-26 08:31] LABS: Alanine Aminotransferase 46 IU/L (<50); Albumin Globulin Ratio 1.4 (1.0-2.8); Alkaline Phosphatase 85 U/L (38-126); Aspartate Aminotransferase 48 IU/L (17-59); BUN Creatinine Ratio 20.3 (6-22); Bilirubin Total 0.3 mg/dL (0.2-1.3); Blood Urea Nitrogen 15 mg/dL (9-20); Calcium 9.6 mg/dL (8.4-10.2); Carbon Dioxide 29 mmol/L (22-32); Chloride 104 mmol/L (98-107); Cholesterol 115 mg/dL (140-199); Estimated Glomerular Filt Rate > 60.0 mL/min (>60); Globulin 2.9 g/dL (1.7-4.1); Glucose 101 mg/dL (80-110); HDL Cholesterol 33 mg/dL (40-60); HEMOLYSIS < 15 (0-50); LDL Cholesterol Calculated 65 mg/dL (<100); Potassium 4.4 mmol/L (3.4-5.1); Sodium 140 mmol/L (137-145); Total Protein 6.9 g/dL (6.3-8.2); Triglycerides 83 mg/dL (35-150)
[2020-12-26 08:54] LABS: Prostate Specific Antigen Scrn 2.98 ng/mL (0.1-4.0)
== END ==
PROVIDERS: PCP Family Medicine; Referring Provider Family Medicine; Visit Provider Family Medicine
DX: E78.2 Mixed hyperlipidemia (principal); I10 Essential (primary) hypertension; Z12.5 Encounter for screening for malignant neoplasm of prostate
CPT/HCPCS: 36415; 80053; 80061; 85025; G0103

== ENCOUNTER → 2021-06-08 12:10 | Outpatient (CLI) | payer MEDICARE, OTHER, SELFPAY ==
--- NOTE | 2021-06-08 12:12 | DI.RAD.S_ITS ---
PROCEDURE: XR LUMBAR SPINE 2-3V INDICATIONS: pain TECHNIQUE: 3 views of the lumbar spine were acquired. COMPARISON: [facility], , L-SPINE 2-3 VIEWS, 01/01/2016, 14:53. FINDINGS: Bones: 5 [id number] vertebrae are present. Trace dextroscoliosis centered at the L3 level. Trace multilevel retrolisthesis. Multilevel disc degeneration, most notably and moderate to severe at the L5-S1 level. Moderate L4-L5 and L5-S1 facet joint arthropathy. No vertebral body compression fractures. No suspicious bony lesions. Soft tissues: Overlying bowel gas pattern is normal. No suspicious soft tissue calcifications. Vascular calcifications indicate atherosclerosis. IMPRESSION: Multilevel spondylosis. Dictated by: Jeyson Orenlas RR Interpreted: Juliano Padgett MD on 06/08/2021 at 13:06 Transcribed by: YI on 06/08/2021 at 13:07 Approved by: Juliano Padgett M.D. on 06/08/2021 at 15:11
--- NOTE | 2021-06-08 12:12 | DI.RAD.S_ITS ---
PROCEDURE: XR PELVIS 1-2V INDICATIONS: pain TECHNIQUE: 1 view(s) of the pelvis acquired. COMPARISON: CT, ABDOMEN/PELVIS WITH CONTRAST, 11/01/2010, 9:38. FINDINGS: Bones: No fractures or dislocations. No suspicious bony lesions. Moderate joint narrowing with periarticular osteophyte formation. Degenerative disc and facet disease involves the inferior lumbar spine. Bones are osteopenic. Soft tissues: Visualized bowel gas pattern is normal. No suspicious soft tissue calcifications. Vascular calcifications indicate atherosclerosis. IMPRESSION: Moderate symmetric hip joint degeneration. Dictated by: Jeyson Ornelas [facility] Interpreted: Juliano Padgett MD on 06/08/2021 at 13:08 Transcribed by: YI on 06/08/2021 at 13:08 Approved by: Juliano Padgett M.D. on 06/08/2021 at 15:11
== END ==
PROVIDERS: PCP Family Medicine; Referring Provider Family Medicine; Visit Provider Family Medicine
DX: M54.5 Low back pain (principal); M47.816 Spondylosis without myelopathy or radiculopathy, lumbar region; M47.817 Spondylosis without myelopathy or radiculopathy, lumbosacral region; G89.29 Other chronic pain
CPT/HCPCS: 72100; 72170

== ENCOUNTER 2021-06-22 09:45 | Outpatient (RCR) | payer MEDICARE, OTHER, SELFPAY ==
--- NOTE | 2021-06-12 16:00 | PT.OIE ---
Current Diagnoses Other chronic pain (06/12/21) Stiffness of other specified joint, not elsewhere classified (06/12/21) Low back pain (06/12/21) Past Medical History (Last Updated 06/08/21 @ 11:52 by Yusef Robles DO) Arthritis Asthma Chicken pox Chronic bilateral low back pain without sciatica Chronic cough (~2004) Coronary artery disease (~2002) Easy bruisability Enlarged prostate Hearing loss (~1993) History of surgery (~1971) Malaria (~2007) Measles Pulmonary hypertension (~2002) S/P excision of lipoma Seasonal allergies Shoulder pain Vision disorder Past Surgical History (Last Updated 01/02/21 @ 10:40 by Ysuef Robles DO) Anesthesia History of surgery (~1971) S/P excision of lipoma Visit Care Team Role Provider Type Yusef Robles DO Attending Provider Physician Primary Care Provider Referring Provider Specialty: Family Practice Address: [address] [place] [address] Email: Physical Therapy Initial Evaluation PT-OP-A Visit Information Start: 06/12/21 17:40 Freq: Status: Active Protocol: Document 06/12/21 15:15 DCW (Rec: 06/12/21 17:49 [facility] [id number]) Out-Patient Physical Therapy Visit Information Visit Information Visit Type Initial Evaluation Visit Start Time 15:15 Visit Stop Time 16:00 Total Visit Minutes 45 Visit Number 1 Number of MANAGED CARE ANALYST Visits 0 Evaluation Information Evaluation Date 06/12/21 PT-OP-B Current Condition Start: 06/12/21 17:40 Freq: Status: Active Protocol: Document 06/12/21 15:15 DCW (Rec: 06/12/21 17:49 [facility] [id number]) Current Condition History of Current Condition Onset Date Multi-year history Current Complaints Low back pain History of Current Condition Pt reports a multi-year history of low back pain, notes it has been off and on for years, always went away, well controlled with NSAIDs, however for the last year, it has been worsening and no longer goes away. At rest pain is just there, always lets me know it's still there, but pt has significant increase in pain if sitting in his car for too long, or when lifting heavier items. Pt reports in his late teens, he was told his sacrum (pt later mentioned it might have been the tailbone) was not attached and might cause back pain in the future, but pt is not sure if this pain has anything to do with that previous warning. Pt reports if he drives more than an hour or two, he has to get out and walk around until his pain subsides. Prior Treatments and Tests Lumbar x-ray: IMPRESSION: Multilevel spondylosis. Dictated by: Jeyson TUTTLE Interpreted: Juliano Padgett MD on 06/08/2021 Pelvic x-ray: IMPRESSION: Moderate symmetric hip joint degeneration. Dictated by: Jeyson TUTTLE Interpreted: Juliano Padgett MD on 06/08/2021 PT-OP-C Subjective Start: 06/12/21 17:40 Freq: Status: Active Protocol: Document 06/12/21 15:15 DCW (Rec: 06/12/21 17:49 DCW [id number]) OP-PT Subjective Patient Comments Patient Comments Pt notes he mainly still does all his normal activites, he just needs to be careful of his back. Patient Questionnaires Oswestry Low Back Index Oswestry Score 12/50 = 24% OP-PT Pain Assessment Pain Assessment Grid Paper Pain Assessment Grid Completed Yes Location Low Back Intensity 5 Scale Used Numeric (0 - 10) PT-OP-F Manual Assessment Start: 06/12/21 17:40 Freq: Status: Active Protocol: Document 06/12/21 15:15 DCW (Rec: 06/12/21 17:57 DCW [id number]) Manual Assessments Soft Tissue Assessment Soft Tissue Mobility Assessment Moderate-severe tone and tenderness B QL, B piriformis, B paraspinals Joint Mobility Assessment Joint Mobility Assessment Vertebral hypomobilty T11-12, L1-4 PT-OP-K Range of Motion Start: 06/12/21 17:40 Freq: Status: Active Protocol: Document 06/12/21 15:15 DCW (Rec: 06/13/21 11:56 DCW [id number]) Lumbar Spine Range of Motion Lumbar Spine Active Degrees Testing Position Standing Flexion 20 Extension 25 Lateral Flexion Left 54 Lateral Flexion Right 50 Comments Lateral flexion measured in cm from fingertips to floor Pain reported bilateral lateral flexion, forward flexion PT-OP-L Special Tests Start: 06/12/21 17:40 Freq: Status: Active Protocol: Document 06/12/21 15:15 DCW (Rec: 06/13/21 09:34 DCW [id number]) Special Tests Lumbar Spine Special Tests Vertical Spine Loading Test Results Negative Lateral SI Compression Test Results Negative IBIS Test Results Negative Straight Leg Raise Test Results Positive L Ipsilateral pain Slump Test Results Contralateral pain with R knee extension A-P Shearing Test Results Negative PT-OP-M Strength Start: 06/12/21 17:40 Freq: Status: Active Protocol: Document 06/12/21 15:15 DCW (Rec: 06/13/21 09:34 DCW [id number]) Hip Strength Hip Manual Muscle Testing Right Flexion (L2) 4 Good Extension (S1) 5 Normal Abduction 4 Good Adduction 5 Normal External Rotation 5 Normal Internal Rotation 5 Normal Left Flexion (L2) 4 Good Extension (S1) 5 Normal Abduction 4 Good Adduction 5 Normal External Rotation 4 Good Internal Rotation 5 Normal Knee Strength Knee Manual Muscle Testing Right Flexion (S2) 5 Normal Extension (L3) 5 Normal Left Flexion (S2) 5 Normal Extension (L3) 5 Normal PT-OP-Q Treatments Start: 06/12/21 17:40 Freq: Status: Active Protocol: Document 06/12/21 15:15 DCW (Rec: 06/12/21 17:50 DCW [id number]) Therapeutic Exercises Supine Exercises 1 Supine Exercise Name Piriformis stretch - Knee-to- opposite shoulder Side bilateral Sitting Exercises 1 Sitting Exercise Name Seated piriformis Figure-4 stretch Side bilateral PT-OP-T Assessment and Plan Start: 06/12/21 17:40 Freq: Status: Active Protocol: Document 06/12/21 15:15 DCW (Rec: 06/13/21 10:31 DCW [id number]) Physical Therapy Assessment Rehab Potential Rehabilitation Potential Good Evaluation Complexity Number of Personal Factors/Comorbidities 3 or More Number of Body Systems Impaired 3 Clinical Presentation at Evaluation Evolving Impairments Impairments Functional Activities, Functional Mobility,Pain,ROM, Soft Tissue Mobility,Strength, Tone Goals Three Impairment Pt unable to ride in car longer than 2 hours due to back and leg pain Care Home Goal (LTG) Pt to tolerated four hour car rides without needing to get out and walk to lessen pain. LTG Duration 08/12/21 Two Impairment Pain limits lumbar flexion to 20? Care Home Goal (LTG) Pt to increase lumbar ROM to 45? flexion LTG Duration 08/12/21 One Impairment Pt does not have an appropriate Home Exercise Program Short Term Goal (STG) Pt to be independent and compliant with an appropriate HEP STG Duration 07/13/21 Assessment Summary Assessment Pt presents with signs and symptoms consistent with DJD/ DDD and muscular hypertonia in his lumbar paraspinals, piriformis, and QL bilaterally . Pt demonstrates decreased lumbar ROM and hypomobility T11-L4 vertebrae. Pt should benefit from skilled therapy focusing on flexibility, strengthening, STM, joint mobilizations, and improving sitting tolerance. Physical Therapy Plan Frequency and Duration Frequency of Treatment 2x/Week Duration of Treatment Two months Plan of Care Start Date 06/12/21 Plan of Care End Date 08/12/21 Therapeutic Interventions Therapeutic Interventions Home Exercise Program,Joint Mobilizations,Manual Therapy, Patient/Caregiver Education, Self-Care/Home Management,Soft Tissue Mobilization, Therapeutic Activities, Therapeutic Exercises Modalities Cold Pack/Ice Massage,Electric Stimulation,Hot Packs, Ultrasound Next Visit Focus/Plan Next Note Type Treatment Note Next Visit Plan STM, Flexibility, joint mobilizations
--- NOTE | 2021-06-12 16:00 | PT.OPPOC ---
Physical, Occupational & Speech Therapy At [facility] Current Diagnoses Other chronic pain (06/12/21) Stiffness of other specified joint, not elsewhere classified (06/12/21) Low back pain (06/12/21) Visit Care Team Role Provider Type Yusef Robles DO Attending Provider Physician Primary Care Provider Referring Provider Specialty: [facility] Practice Address: [address] [place] [address], [facility] Email: Plan Of Care PT-OP-T Assessment and Plan Start: 06/12/21 17:40 Freq: Status: Active Protocol: Document 06/12/21 15:15 DCW (Rec: 06/13/21 10:31 DCW [id number]) Physical Therapy Assessment Rehab Potential Rehabilitation Potential Good Evaluation Complexity Number of Personal Factors/Comorbidities 3 or More Number of Body Systems Impaired 3 Clinical Presentation at Evaluation Evolving Impairments Impairments Functional Activities, Functional Mobility,Pain,ROM, Soft Tissue Mobility,Strength, Tone Goals Three Impairment Pt unable to ride in car longer than 2 hours due to back and leg pain [facility] Goal (LTG) Pt to tolerated four hour car rides without needing to get out and walk to lessen pain. LTG Duration 08/12/21 Two Impairment Pain limits lumbar flexion to 20? [facility] Goal (LTG) Pt to increase lumbar ROM to 45? flexion LTG Duration 08/12/21 One Impairment Pt does not have an appropriate Home Exercise Program Short Term Goal (STG) Pt to be independent and compliant with an appropriate HEP STG Duration 07/13/21 Assessment Summary Assessment Pt presents with signs and symptoms consistent with DJD/ DDD and muscular hypertonia in his lumbar paraspinals, piriformis, and QL bilaterally . Pt demonstrates decreased lumbar ROM and hypomobility T11-L4 vertebrae. Pt should benefit from skilled therapy focusing on flexibility, strengthening, STM, joint mobilizations, and improving sitting tolerance. Physical Therapy Plan Frequency and Duration Frequency of Treatment 2x/Week Duration of Treatment Two months Plan of Care Start Date 06/12/21 Plan of Care End Date 08/12/21 Therapeutic Interventions Therapeutic Interventions Home Exercise Program,Joint Mobilizations,Manual Therapy, Patient/Caregiver Education, Self-Care/Home Management,Soft Tissue Mobilization, Therapeutic Activities, Therapeutic Exercises Modalities Cold Pack/Ice Massage,Electric Stimulation,Hot Packs, Ultrasound Next Visit Focus/Plan Next Note Type Treatment Note Next Visit Plan STM, Flexibility, joint mobilizations Plan of Care Dates Plan of Care Start Date 06/12/21 Plan of Care End Date 08/12/21 Electronically Signed by: Adair Vee, PT 06/13/21 [id number] Please Sign and Return: I have reviewed this Plan of Care and certify that the skilled therapy services above are required to meet the patient?s needs. Physician Signature Date Printed Name and Credentials Clinical Instructor Signature Printed Name and Credentials
--- NOTE | 2021-06-15 10:35 | PT.OTN ---
Current Diagnoses Other chronic pain (06/15/21) Stiffness of other specified joint, not elsewhere classified (06/15/21) Low back pain (06/15/21) Physical Therapy Treatment Note PT-OP-A Visit Information Start: 06/12/21 17:40 Freq: Status: Active Protocol: Document 06/15/21 09:49 SP (Rec: 06/15/21 12:05 SP [id number]) Out-Patient Physical Therapy Visit Information Visit Information Visit Type Treatment Note Visit Start Time 09:49 Visit Stop Time 10:35 Total Visit Minutes 46 Visit Number 2 Number of COMMUNICATIONS TOWER CLIMBER Visits 1 Evaluation Information Evaluation Date 06/12/21 PT-OP-B Current Condition Start: 06/12/21 17:40 Freq: Status: Active Protocol: Document 06/12/21 15:15 DCW (Rec: 06/12/21 17:49 DCW [id number]) Current Condition History of Current Condition Onset Date Multi-year history Current Complaints Low back pain History of Current Condition Pt reports a multi-year history of low back pain, notes it has been off and on for years, always went away, well controlled with NSAIDs, however for the last year, it has been worsening and no longer goes away. At rest pain is just there, always lets me know it's still there, but pt has significant increase in pain if sitting in his car for too long, or when lifting heavier items. Pt reports in his late teens, he was told his sacrum (pt later mentioned it might have been the tailbone) was not attached and might cause back pain in the future, but pt is not sure if this pain has anything to do with that previous warning. Pt reports if he drives more than an hour or two, he has to get out and walk around until his pain subsides. Prior Treatments and Tests Lumbar x-ray: IMPRESSION: Multilevel spondylosis. Dictated by: Jeyson TUTTLE Interpreted: Juliano Padgett MD on 06/08/2021 Pelvic x-ray: IMPRESSION: Moderate symmetric hip joint degeneration. Dictated by: Jeyson TUTTLE Interpreted: Juliano Padgett MD on 06/08/2021 PT-OP-C Subjective Start: 06/12/21 17:40 Freq: Status: Active Protocol: Document 06/15/21 09:49 SP (Rec: 06/15/21 12:05 SP [id number]) OP-PT Subjective Patient Comments Patient Comments Pt reports was sore later in day and next day but did perform stretches instructed with no adverse affects. Pt stated can now touch the floor when seated,couldn't do that before last PT tx. Pt stated not taking Tylenol or Ibuprofen to see if back feeling better without masking . PT-OP-F Manual Assessment Start: 06/12/21 17:40 Freq: Status: Active Protocol: Document 06/12/21 15:15 DCW (Rec: 06/12/21 17:57 DCW [id number]) Manual Assessments Soft Tissue Assessment Soft Tissue Mobility Assessment Moderate-severe tone and tenderness B QL, B piriformis, B paraspinals Joint Mobility Assessment Joint Mobility Assessment Vertebral hypomobilty T11-12, L1-4 PT-OP-K Range of Motion Start: 06/12/21 17:40 Freq: Status: Active Protocol: Document 06/12/21 15:15 DCW (Rec: 06/13/21 11:56 DCW [id number]) Lumbar Spine Range of Motion Lumbar Spine Active Degrees Testing Position Standing Flexion 20 Extension 25 Lateral Flexion Left 54 Lateral Flexion Right 50 Comments Lateral flexion measured in cm from fingertips to floor Pain reported bilateral lateral flexion, forward flexion PT-OP-L Special Tests Start: 06/12/21 17:40 Freq: Status: Active Protocol: Document 06/12/21 15:15 DCW (Rec: 06/13/21 09:34 DCW [id number]) Special Tests Lumbar Spine Special Tests Vertical Spine Loading Test Results Negative Lateral SI Compression Test Results Negative IBIS Test Results Negative Straight Leg Raise Test Results Positive L Ipsilateral pain Slump Test Results Contralateral pain with R knee extension A-P Shearing Test Results Negative PT-OP-M Strength Start: 06/12/21 17:40 Freq: Status: Active Protocol: Document 06/12/21 15:15 DCW (Rec: 06/13/21 09:34 DCW [id number]) Hip Strength Hip Manual Muscle Testing Right Flexion (L2) 4 Good Extension (S1) 5 Normal Abduction 4 Good Adduction 5 Normal External Rotation 5 Normal Internal Rotation 5 Normal Left Flexion (L2) 4 Good Extension (S1) 5 Normal Abduction 4 Good Adduction 5 Normal External Rotation 4 Good Internal Rotation 5 Normal Knee Strength Knee Manual Muscle Testing Right Flexion (S2) 5 Normal Extension (L3) 5 Normal Left Flexion (S2) 5 Normal Extension (L3) 5 Normal PT-OP-Q Treatments Start: 06/12/21 17:40 Freq: Status: Active Protocol: Document 06/15/21 09:49 SP (Rec: 06/15/21 12:05 SP [id number]) Therapeutic Exercises Supine Exercises TA SLR Supine Exercise Name TA trng PPT awareness (added to HEP) Side bilateral Reps/Minutes 2x5 Comments cued PPT LTR Supine Exercise Name added to HEP Side bilateral Reps/Minutes 5 sec x5 Comments good TA fac and rotational flex, painfree 1 Supine Exercise Name Piriformis stretch - Knee-to- opposite shoulder Side bilateral Reps/Minutes 30 x2, performs 2x/day Sitting Exercises 1 Sitting Exercise Name Seated piriformis Figure-4 stretch Side bilateral Reps/Minutes 30 x2 Comments states does in recliner and not get as much stretch and does irritate Rknee Other Exercises cat camel Other Exercise Name quadruped Reps/Minutes x5 Comments good ROM, no pain- ok on the knees (unable progress isreal pose- knee hurt) PT-OP-T Assessment and Plan Start: 06/12/21 17:40 Freq: Status: Active Protocol: Document 06/15/21 09:49 SP (Rec: 06/15/21 12:05 SP [id number]) Physical Therapy Assessment Goals Three Impairment Pt unable to ride in car longer than 2 hours due to back and leg pain [employer] Goal (LTG) Pt to tolerated four hour car rides without needing to get out and walk to lessen pain. LTG Duration 08/12/21 Two Impairment Pain limits lumbar flexion to 20? [employer] Goal (LTG) Pt to increase lumbar ROM to 45? flexion LTG Duration 08/12/21 One Impairment Pt does not have an appropriate Home Exercise Program Short Term Goal (STG) Pt to be independent and compliant with an appropriate HEP STG Duration 07/13/21 Assessment Summary Assessment Pt responded well to HEP review pirformis stretching supine better than seated. No adverse response to manual and initated to HEP: cat camel, TA SLR, LTR and check reported self trunk flexion activity doing at home better. Pt stated painfree end tx, feels good. Cues as needed for set up and proper form of new exercises. Physical Therapy Plan Frequency and Duration Frequency of Treatment 2x/Week Duration of Treatment Two months Plan of Care Start Date 06/12/21 Plan of Care End Date 08/12/21 Therapeutic Interventions Therapeutic Interventions Home Exercise Program,Joint Mobilizations,Manual Therapy, Patient/Caregiver Education, Self-Care/Home Management,Soft Tissue Mobilization, Therapeutic Activities, Therapeutic Exercises Modalities Cold Pack/Ice Massage,Electric Stimulation,Hot Packs, Ultrasound Next Visit Focus/Plan Next Note Type Treatment Note Next Visit Plan Assess response to cat camel, TA SLR, LTR, pirformis and trunk flexion stretching performed last tx. POC: STM, Flexibility, joint mobilizations
--- NOTE | 2021-06-18 10:33 | PT.OTN ---
Current Diagnoses Other chronic pain (06/18/21) Stiffness of other specified joint, not elsewhere classified (06/18/21) Low back pain (06/18/21) Physical Therapy Treatment Note PT-OP-A Visit Information Start: 06/12/21 17:40 Freq: Status: Active Protocol: Document 06/18/21 09:50 SP (Rec: 06/18/21 10:47 SP [id number]) Out-Patient Physical Therapy Visit Information Visit Information Visit Type Treatment Note Visit Start Time 09:50 Visit Stop Time 10:33 Total Visit Minutes 43 Visit Number 3 Number of APPLICATION PROJECT LEADER Visits 2 PT-OP-B Current Condition Start: 06/12/21 17:40 Freq: Status: Active Protocol: Document 06/12/21 15:15 DCW (Rec: 06/12/21 17:49 DCW [id number]) Current Condition History of Current Condition Onset Date Multi-year history Current Complaints Low back pain History of Current Condition Pt reports a multi-year history of low back pain, notes it has been off and on for years, always went away, well controlled with NSAIDs, however for the last year, it has been worsening and no longer goes away. At rest pain is just there, always lets me know it's still there, but pt has significant increase in pain if sitting in his car for too long, or when lifting heavier items. Pt reports in his late teens, he was told his sacrum (pt later mentioned it might have been the tailbone) was not attached and might cause back pain in the future, but pt is not sure if this pain has anything to do with that previous warning. Pt reports if he drives more than an hour or two, he has to get out and walk around until his pain subsides. Prior Treatments and Tests Lumbar x-ray: IMPRESSION: Multilevel spondylosis. Dictated by: Jeyson TUTTLE Interpreted: Juliano Padgett MD on 06/08/2021 Pelvic x-ray: IMPRESSION: Moderate symmetric hip joint degeneration. Dictated by: Jeyson TUTTLE Interpreted: Juliano Padgett MD on 06/08/2021 PT-OP-C Subjective Start: 06/12/21 17:40 Freq: Status: Active Protocol: Document 06/18/21 09:50 SP (Rec: 06/18/21 10:47 SP [id number]) OP-PT Subjective Patient Comments Patient Comments Pt stated was pretty sore later in day and next day after last tx. Did the exercises the next day to see if can be helpful to continue knowing new activity and still more soreness with swelling over lumbar area, improved with Tylenol and cold pack. Pt stated dont' know if was back pain/ swelling due to therapy exercises or over did it at home. Doing better today, 2-3/ 10 over back when arrived. Pt stated unable to get on hands/ knees for cat camel. Patient Reported Progress Worse PT-OP-F Manual Assessment Start: 06/12/21 17:40 Freq: Status: Active Protocol: Document 06/12/21 15:15 DCW (Rec: 06/12/21 17:57 DCW [id number]) Manual Assessments Soft Tissue Assessment Soft Tissue Mobility Assessment Moderate-severe tone and tenderness B QL, B piriformis, B paraspinals Joint Mobility Assessment Joint Mobility Assessment Vertebral hypomobilty T11-12, L1-4 PT-OP-K Range of Motion Start: 06/12/21 17:40 Freq: Status: Active Protocol: Document 06/12/21 15:15 DCW (Rec: 06/13/21 11:56 DCW [id number]) Lumbar Spine Range of Motion Lumbar Spine Active Degrees Testing Position Standing Flexion 20 Extension 25 Lateral Flexion Left 54 Lateral Flexion Right 50 Comments Lateral flexion measured in cm from fingertips to floor Pain reported bilateral lateral flexion, forward flexion PT-OP-L Special Tests Start: 06/12/21 17:40 Freq: Status: Active Protocol: Document 06/12/21 15:15 DCW (Rec: 06/13/21 09:34 DCW [id number]) Special Tests Lumbar Spine Special Tests Vertical Spine Loading Test Results Negative Lateral SI Compression Test Results Negative IBIS Test Results Negative Straight Leg Raise Test Results Positive L Ipsilateral pain Slump Test Results Contralateral pain with R knee extension A-P Shearing Test Results Negative PT-OP-M Strength Start: 06/12/21 17:40 Freq: Status: Active Protocol: Document 06/12/21 15:15 DCW (Rec: 06/13/21 09:34 DCW [id number]) Hip Strength Hip Manual Muscle Testing Right Flexion (L2) 4 Good Extension (S1) 5 Normal Abduction 4 Good Adduction 5 Normal External Rotation 5 Normal Internal Rotation 5 Normal Left Flexion (L2) 4 Good Extension (S1) 5 Normal Abduction 4 Good Adduction 5 Normal External Rotation 4 Good Internal Rotation 5 Normal Knee Strength Knee Manual Muscle Testing Right Flexion (S2) 5 Normal Extension (L3) 5 Normal Left Flexion (S2) 5 Normal Extension (L3) 5 Normal PT-OP-Q Treatments Start: 06/12/21 17:40 Freq: Status: Active Protocol: Document 06/18/21 09:50 SP (Rec: 06/18/21 10:47 SP [id number]) Therapeutic Exercises Supine Exercises TA SLR Supine Exercise Name TA trng PPT awareness ( reviewed HEP) Side bilateral Reps/Minutes 2x10 Comments cued PPT- good painfree LTR Supine Exercise Name Reviewed HEP Side bilateral Reps/Minutes 20 hold x3 Comments good TA fac and rotational flex, painfree range & stretch hip abd/ QL 1 Supine Exercise Name Piriformis stretch - Knee-to- opposite shoulder Side bilateral Reps/Minutes 30 x2, performs 2x/day Sitting Exercises trunk flexion Sitting Exercise Name reach between LEs tolerant range (added to HEP) Reps/Minutes 20 sec x3 Comments good feedback lumbar stretch as reps progress 1 Sitting Exercise Name Seated piriformis Figure-4 stretch Side bilateral Reps/Minutes 30 x2 Comments states does in recliner and not get as much stretch and does irritate Rknee Standing Exercises self STMs Standing Exercise Name paraspinals, glut med, pirformis Side left Equipment Used racquetball vs, tennis ball, vs lacrosse ball on wall Comments good feedback relaxes/loosens up the muscles Other Exercises cat camel Comments DC painful on knees at home Manual Therapy Treatment Soft Tissue Mobilization STMs Body Location L QL, glut med, pirformis Mobilization Type Cross-Friction,Rolling, Strumming,Sustained Pressure, Trigger Point Release Intensity/Depth Moderate Body Position Prone Comments pillows under pelvis- sensitive/ tender but stated lessening tightness. PT-OP-T Assessment and Plan Start: 06/12/21 17:40 Freq: Status: Active Protocol: Document 06/18/21 09:50 SP (Rec: 06/18/21 10:47 SP [id number]) Physical Therapy Assessment Goals Three Impairment Pt unable to ride in car longer than 2 hours due to back and leg pain Prison Goal (LTG) Pt to tolerated four hour car rides without needing to get out and walk to lessen pain. LTG Duration 08/12/21 Two Impairment Pain limits lumbar flexion to 20? Ordering Box Operator Goal (LTG) Pt to increase lumbar ROM to 45? flexion LTG Duration 08/12/21 One Impairment Pt does not have an appropriate Home Exercise Program Short Term Goal (STG) Pt to be independent and compliant with an appropriate HEP STG Duration 07/13/21 Assessment Summary Assessment Pt responded well to manual, instruction on self appication ball on wall. Good response to flexibility and initial core fac HEP review. Pt had better understanding of set up and proper form and why selected for self performance, more independent. Physical Therapy Plan Frequency and Duration Frequency of Treatment 2x/Week Duration of Treatment Two months Plan of Care Start Date 06/12/21 Plan of Care End Date 08/12/21 Therapeutic Interventions Therapeutic Interventions Home Exercise Program,Joint Mobilizations,Manual Therapy, Patient/Caregiver Education, Self-Care/Home Management,Soft Tissue Mobilization, Therapeutic Activities, Therapeutic Exercises Modalities Cold Pack/Ice Massage,Electric Stimulation,Hot Packs, Ultrasound Next Visit Focus/Plan Next Note Type Treatment Note Next Visit Plan Assess response to HEP review: TA SLR, LTR, pirformis and trunk flexion stretching and manual with self STMs performed last tx. If responds well maybe initated core/ hip abd stability/ strengthening. POC: STM, Flexibility, joint mobilizations
--- NOTE | 2021-06-22 10:28 | PT.OTN ---
Current Diagnoses Other chronic pain (06/22/21) Stiffness of other specified joint, not elsewhere classified (06/22/21) Low back pain (06/22/21) Physical Therapy Treatment Note PT-OP-A Visit Information Start: 06/12/21 17:40 Freq: Status: Active Protocol: Document 06/22/21 09:50 HH (Rec: 06/22/21 10:28 [id number]) Out-Patient Physical Therapy Visit Information Visit Information Visit Type Treatment Note Visit Start Time 09:48 Visit Stop Time 10:30 Total Visit Minutes 42 Visit Number 4 Number of VALIDATION TECHNICIAN Visits 0 PT-OP-B Current Condition Start: 06/12/21 17:40 Freq: Status: Active Protocol: Document 06/12/21 15:15 DCW (Rec: 06/12/21 17:49 DCW [id number]) Current Condition History of Current Condition Onset Date Multi-year history Current Complaints Low back pain History of Current Condition Pt reports a multi-year history of low back pain, notes it has been off and on for years, always went away, well controlled with NSAIDs, however for the last year, it has been worsening and no longer goes away. At rest pain is just there, always lets me know it's still there, but pt has significant increase in pain if sitting in his car for too long, or when lifting heavier items. Pt reports in his late teens, he was told his sacrum (pt later mentioned it might have been the tailbone) was not attached and might cause back pain in the future, but pt is not sure if this pain has anything to do with that previous warning. Pt reports if he drives more than an hour or two, he has to get out and walk around until his pain subsides. Prior Treatments and Tests Lumbar x-ray: IMPRESSION: Multilevel spondylosis. Dictated by: Jeyson TUTTLE Interpreted: Juliano Padgett MD on 06/08/2021 Pelvic x-ray: IMPRESSION: Moderate symmetric hip joint degeneration. Dictated by: Jeyson TUTTLE Interpreted: Juliano Padgett MD on 06/08/2021 PT-OP-C Subjective Start: 06/12/21 17:40 Freq: Status: Active Protocol: Document 06/22/21 09:50 HH (Rec: 06/22/21 10:28 [id number]) OP-PT Subjective Patient Comments Patient Comments Its much better now after we discharge some of the exercises. My L side doesnt hurt as much. Im going to [facility] this weekend so i will find out hows my back doing. Patient Reported Progress Improving PT-OP-F Manual Assessment Start: 06/12/21 17:40 Freq: Status: Active Protocol: Document 06/12/21 15:15 DCW (Rec: 06/12/21 17:57 DCW [id number]) Manual Assessments Soft Tissue Assessment Soft Tissue Mobility Assessment Moderate-severe tone and tenderness B QL, B piriformis, B paraspinals Joint Mobility Assessment Joint Mobility Assessment Vertebral hypomobilty T11-12, L1-4 PT-OP-K Range of Motion Start: 06/12/21 17:40 Freq: Status: Active Protocol: Document 06/12/21 15:15 DCW (Rec: 06/13/21 11:56 DCW [id number]) Lumbar Spine Range of Motion Lumbar Spine Active Degrees Testing Position Standing Flexion 20 Extension 25 Lateral Flexion Left 54 Lateral Flexion Right 50 Comments Lateral flexion measured in cm from fingertips to floor Pain reported bilateral lateral flexion, forward flexion PT-OP-L Special Tests Start: 06/12/21 17:40 Freq: Status: Active Protocol: Document 06/12/21 15:15 DCW (Rec: 06/13/21 09:34 DCW [id number]) Special Tests Lumbar Spine Special Tests Vertical Spine Loading Test Results Negative Lateral SI Compression Test Results Negative IBIS Test Results Negative Straight Leg Raise Test Results Positive L Ipsilateral pain Slump Test Results Contralateral pain with R knee extension A-P Shearing Test Results Negative PT-OP-M Strength Start: 06/12/21 17:40 Freq: Status: Active Protocol: Document 06/12/21 15:15 DCW (Rec: 06/13/21 09:34 DCW [id number]) Hip Strength Hip Manual Muscle Testing Right Flexion (L2) 4 Good Extension (S1) 5 Normal Abduction 4 Good Adduction 5 Normal External Rotation 5 Normal Internal Rotation 5 Normal Left Flexion (L2) 4 Good Extension (S1) 5 Normal Abduction 4 Good Adduction 5 Normal External Rotation 4 Good Internal Rotation 5 Normal Knee Strength Knee Manual Muscle Testing Right Flexion (S2) 5 Normal Extension (L3) 5 Normal Left Flexion (S2) 5 Normal Extension (L3) 5 Normal PT-OP-Q Treatments Start: 06/12/21 17:40 Freq: Status: Active Protocol: Document 06/22/21 09:50 HH (Rec: 06/22/21 10:28 [id number]) Therapeutic Exercises Supine Exercises TA SLR Supine Exercise Name TA trng PPT awareness ( reviewed HEP) Side bilateral Reps/Minutes 2x10 Comments cued PPT- good painfree LTR Supine Exercise Name Reviewed HEP Side bilateral Reps/Minutes 20 hold x3 Comments good TA fac and rotational flex, painfree range & stretch hip abd/ QL Sitting Exercises trunk flexion Sitting Exercise Name reach between LEs tolerant range (added to HEP) Reps/Minutes 20 sec x3 Comments toes pulling Standing Exercises calf raises Standing Exercise Name RLE biased Side right Reps/Minutes 10 x2 Comments for HEP Manual Therapy Treatment Soft Tissue Mobilization STMs Body Location L QL, glut med, pirformis Mobilization Type Cross-Friction,Rolling, Strumming,Sustained Pressure, Trigger Point Release Intensity/Depth Moderate Body Position Prone Comments pillows under pelvis- sensitive/ tender but stated lessening tightness. PT-OP-T Assessment and Plan Start: 06/12/21 17:40 Freq: Status: Active Protocol: Document 06/22/21 09:50 HH (Rec: 06/22/21 10:28 [id number]) Physical Therapy Assessment Goals Three Impairment Pt unable to ride in car longer than 2 hours due to back and leg pain Bar Hostess Goal (LTG) Pt to tolerated four hour car rides without needing to get out and walk to lessen pain. LTG Duration 08/12/21 Two Impairment Pain limits lumbar flexion to 20? Bar Hostess Goal (LTG) Pt to increase lumbar ROM to 45? flexion LTG Duration 08/12/21 One Impairment Pt does not have an appropriate Home Exercise Program Short Term Goal (STG) Pt to be independent and compliant with an appropriate HEP STG Duration 07/13/21 Assessment Summary Assessment pt reports good progress without much pain lately after DC some previous HEP. Pt shows good understanding utilizing trunk flexion stretch when pain comes. Added calf raises on his RLE since pt tends to pronate his R foot during gait. Pt is going to a road trip to [facility] so he will update us regarding his progress and pain management. Physical Therapy Plan Frequency and Duration Frequency of Treatment 2x/Week Duration of Treatment Two months Plan of Care Start Date 06/12/21 Plan of Care End Date 08/12/21 Therapeutic Interventions Therapeutic Interventions Home Exercise Program,Joint Mobilizations,Manual Therapy, Patient/Caregiver Education, Self-Care/Home Management,Soft Tissue Mobilization, Therapeutic Activities, Therapeutic Exercises Modalities Cold Pack/Ice Massage,Electric Stimulation,Hot Packs, Ultrasound Next Visit Focus/Plan Next Note Type Treatment Note Next Visit Plan Assess response to HEP review: TA SLR, LTR, pirformis and trunk flexion stretching and manual with self STMs performed last tx. If responds well maybe initated core/ hip abd stability/ strengthening. POC: STM, Flexibility, joint mobilizations
--- NOTE | 2021-06-29 10:48 | PT.OPDS ---
Current Diagnoses Other chronic pain (06/22/21) Stiffness of other specified joint, not elsewhere classified (06/22/21) Low back pain (06/22/21) Visit Care Team Role Provider Type Yusef Robles DO Attending Provider Physician Primary Care Provider Referring Provider Specialty: Family Practice Address: [address] [place] [address], [id number] Email: Visit Number Visit Number 4 Discharge Summary Progress Towards Goals Progress Towards Goals Goals Met Assessment Summary Assessment pt came back from his road trip and his back did not bother him. He stated he doesnt need therapy at this point and agreed to be DC from PT today.
== END 2021-06-29 11:01 | disposition home or self-care (01) ==
LOC: PHYS 09:45
PROVIDERS: PCP Family Medicine; Referring Provider Family Medicine; Visit Provider Family Medicine
DX: M54.5 Low back pain (principal); G89.29 Other chronic pain; M25.69 Stiffness of other specified joint, not elsewhere classified
CPT/HCPCS: 97110; 97140; 97162

== ENCOUNTER 2021-08-09 08:45 | Observation (INO) | payer MEDICARE, OTHER, SELFPAY ==
[2021-08-09] VITALS (16 sets, daily range): BP systolic 113–141; BP diastolic 62–78; PULSE 79–95; RESP 16–29; TEMP 36.6–38.3; O2SAT 91–96; BMI 23.0; BMI 27.5
[2021-08-09 09:22] LABS: Add Manual Diff / Slide Review NO; Basophils Absolute Auto 0 /uL (0-100); Basophils Percent Auto 0.2 % (0-2); Eosinophils Absolute Auto 0 /uL (0-450); Eosinophils Percent Auto 0.5 % (2-4); Hemoglobin 14.6 g/dL (13.5-17.5); Lymphocytes Absolute Auto 700 /uL (1100-4500); Lymphocytes Percent Auto 9.7 % (25-40); Mean Corpuscular HGB Conc 33.9 % (30-36); Mean Corpuscular Volume 85.5 fL (80-100); Monocytes Absolute Auto 600 /uL (0-900); Monocytes Percent Auto 8.4 % (3-14); Neutrophils Absolute Auto 5900 /uL (1500-7000); Neutrophils Percent Auto 81.2 % (50-75); Platelet Count 214 X10^3/uL (150-400); Red Blood Cell Count 5.02 X10^6/uL (4.5-5.9); Red Cell Distribution Width 13.9 % (11.6-14.8); White Blood Cell Count 7.3 X10^3/uL (4.5-11.0)
[2021-08-09 09:28] LABS: Lactate (Lactic Acid) 1.5 mmol/L (0.7-2.1)
[2021-08-09 09:30] LABS: Alanine Aminotransferase 48 IU/L (<50); Albumin 3.8 g/dL (3.5-5.0); Albumin Globulin Ratio 1.2 (1.0-2.8); Alkaline Phosphatase 56 U/L (38-126); Aspartate Aminotransferase 56 IU/L (17-59); BUN Creatinine Ratio 23.8 (6-22); Bilirubin Total 1.1 mg/dL (0.2-1.3); Blood Urea Nitrogen 19 mg/dL (9-20); Calcium 9.1 mg/dL (8.4-10.2); Carbon Dioxide 25 mmol/L (22-32); Chloride 101 mmol/L (98-107); Estimated Glomerular Filt Rate > 60.0 mL/min (>60); Globulin 3.1 g/dL (1.7-4.1); Glucose 114 mg/dL (80-110); HEMOLYSIS < 15 (0-50); Potassium 3.9 mmol/L (3.4-5.1); Sodium 134 mmol/L (137-145); Total Protein 6.9 g/dL (6.3-8.2)
--- NOTE | 2021-08-09 09:41 | ED_ITS ---
HPI - Nausea/Vomiting/Diarrhea General Chief complaint: Upper Respiratory Symptoms Stated complaint: Covid+, dehydrated Time Seen by Provider: 08/09/21 09:17 Source: patient Mode of arrival: Ambulatory Limitations: no limitations History of Present Illness HPI Narrative: Patient states he is here because he feels dehydrated. Has not had much of an appetite for the past 20 days. He and his are not vaccinated. Tested positive for COVID earlier this month. Denies denies any cough cold congestion. No dyspnea. Denies any abdominal pain. No chest pain or back pain. Had dark urine but now improving. No dizziness or syncope. Patient in no distress. Has not seen his family doctor. Again, denies any c hest pain or back pain or abdominal pain. No diarrhea. Patient states has not eaten or drank very much to produce stool. Related Data Home Medications Medication Instructions Recorded Confirmed niacin 1,000 mg tablet,extended 500 mg PO BID #0 06/13/11 07/12/21 release aspirin 81 mg tablet,delayed 81 mg PO BID 02/03/19 07/12/21 release acetaminophen 500 mg capsule 1,000 mg PO TID PRN cap 12/20/20 07/12/21 Previous Rx's Medication Instructions Recorded atorvastatin 10 mg tablet See Rx Instructions .ROUTE 08/29/20 .COMPLEX #90 tablet lisinopril 20 mg tablet 20 mg PO BID #180 tab 12/20/20 tizanidine 4 mg capsule 4 mg PO BEDTIME PRN #30 cap 06/08/21 Allergies Allergy/AdvReac Type Severity Reaction Status Date / Time tetanus and diphtheria Allergy Mild ILL Verified 07/12/21 15:23 toxoids [tetanus & diphtheria toxoids] Opioids - Morphine Analogues AdvReac Intermediate Nausea Verified 07/12/21 15:23 Review of Systems Review of Systems Narrative: GENERAL: Denies chills, positive for fatigue, malaise, negative for fever, sweats. HEENT: Denies sinus pain, ear pain, sore throat RESPIRATORY: Denies dyspnea, cough CARDIOVASCULAR: Denies chest pain, palpitations GASTROINTESTINAL: Positive nausea, negative for vomiting, abdominal pain : Denies dysuria, frequency, hematuria MUSCULOSKELETAL: denies muscle or bony pain SKIN: Denies rash, skin lesions NEUROLOGIC: Denies weakness, numbness ROS Unobtainable: All systems reviewed & are unremarkable except as noted in HPI and below Patient History Medical History Arthritis Asthma Back pain Chicken pox Chronic cough (~2004) Coronary artery disease (~2002) Easy bruisability Enlarged prostate Grief Hearing loss (~1993) Malaria (~2007) Measles Pulmonary hypertension (~2002) Seasonal allergies Shoulder pain Thoracic spine pain Vision disorder Surgical History Anesthesia History of surgery (~1971) S/P excision of lipoma Family History Father Heart disease Grandmother Stomach cancer Mother Dementia Social History marital status: household members: spouse occupational status: previously employed Smoking Status: Former smoker alcohol intake: current substance use type: does not use Smoking Status: Former smoker alcohol intake frequency: holidays/special occasions only Substance Use Type: does not use Exam Narrative Exam Narrative: GENERAL: in no distress, not toxic not dyspneic HEAD: Normocephalic. EYES: Pupils equal round No scleral icterus. ENT: Mucous membranes moist. NECK: Trachea midline. CARDIOVASCULAR: Regular rate and rhythm without murmurs RESPIRATORY: Clear to auscultation. Breath sounds equal bilaterally. No wheezes, rales, or rhonchi. GASTROINTESTINAL: Abdomen soft, non-tender, nontender, bowel sounds present, no peritoneal signs EXTREMITIES: No gross deformities. BACK: No flank tenderness. NEURO: AOx4. SKIN: Warm and dry PSYCH: Not anxious, is cooperative Initial Vital Signs Initial Vital Signs: Vital Signs Pulse Rate 94 H 08/09/21 08:55 Pulse Oximetry 96 08/09/21 08:55 Course Course Course Narrative: Upper for admit for echocardiogram and stress test Decision to Admit Date: 08/09/21 Decision to Admit time: 10:42 Orders Ordered: Discontinued Medications Acetaminophen (Acetaminophen 325 Mg Tablet) 650 mg PO Q6HR PRN PRN Reason: Fever/Mild Pain (1-3) Last Admin: 08/09/21 16:18 Dose: 650 mg Documented by: CPETRIC Aspirin (Aspirin 81 Mg Chew Tab) 324 mg PO NOW ONE Stop: 08/09/21 11:12 Last Admin: 08/09/21 12:42 Dose: 324 mg Documented by: JOSE E Aspirin (Aspirin Ec 81 Mg Tablet) 81 mg PO DAILY [facility] Last Admin: 08/10/21 09:00 Dose: Not Given Documented by: JEN Atorvastatin Calcium (Atorvastatin 20 Mg Tablet) 80 mg PO BEDTIME [facility] Last Admin: 08/09/21 21:29 Dose: Not Given Documented by: MIRANDA Dexamethasone (Dexamethasone 10 Mg/Ml Vial) 10 mg IV NOW ONE Stop: 08/09/21 13:44 Last Admin: 08/09/21 15:06 Dose: Not Given Documented by: BEATRIZ Dexamethasone (Dexamethasone 10 Mg/Ml Vial) 6 mg IV DAILY [facility] Last Admin: 08/10/21 09:00 Dose: Not Given Documented by: JEN Enoxaparin Sodium (Enoxaparin 40 Mg/0.4 Ml Syringe) 40 mg SUBCUT DAILY [facility] Last Admin: 08/10/21 09:00 Dose: Not Given Documented by: JEN Sodium Chloride (Normal Saline 0.9%) 1,000 mls @ 1,000 mls/hr IV BOLUS ONE Stop: 08/09/21 10:33 Last Infusion: 08/09/21 11:10 Dose: 0 mls/hr Documented by: JOSE E Admin: 08/09/21 09:45 Dose: 1,000 mls/hr Documented by: JOSE E Remdesivir 200 mg/ Sodium (Chloride) 250 mls @ 250 mls/hr IV NOW ONE Stop: 08/09/21 14:42 Last Admin: 08/09/21 15:07 Dose: Not Given Documented by: BEATRIZ Remdesivir 100 mg/ Sodium (Chloride) 250 mls @ 250 mls/hr IV 1200 [facility] Stop: 08/13/21 12:59 Sodium Chloride (Normal Saline 0.9%) 1,000 mls @ 100 mls/hr IV CONT [facility] Last Admin: 08/09/21 14:50 Dose: 100 mls/hr Documented by: BEATRIZ Ondansetron HCl (Ondansetron 4 Mg/2 Ml Inj) 4 mg IV NOW ONE Stop: 08/09/21 09:41 Last Admin: 08/09/21 09:50 Dose: 4 mg Documented by: JOSE E Ondansetron HCl (Ondansetron 4 Mg/2 Ml Inj) 4 mg IV Q8HR PRN PRN Reason: Nausea And Vomiting Reevaluation(s) Reevaluation #1: Spoke with patient results and will need stress test and echocardiogram. Patient agrees. At this time no chest pain or dyspnea Time: 10:42 Consultations Consultation #1: Spoke with cardiology dr redmond, elevated troponin however not considered non STEMI. No heparin. Recommends echocardiogram and stress test/ admission Time: 10:43 Consultation #2: spoke with hospitalist and agrees for admit Vital Signs Vital signs: Vital Signs - 8 hr 08/09/21 08:55 08/09/21 08:56 08/09/21 09:00 Temperature Pulse Rate 94 H 94 H 93 H Respiratory Rate 18 Blood Pressure 136/77 Pulse Oximetry 96 94 95 08/09/21 09:03 08/09/21 09:30 08/09/21 10:00 Temperature 98 F Pulse Rate 90 84 79 Respiratory Rate 18 24 26 H Blood Pressure 136/73 Pulse Oximetry 94 91 91 MDM - Nausea/Vomiting/Diarrhea Differential Diagnosis Differential diagnosis: Likely other (Dehydration/COVID infection/pneumonia/non- STEMI/abnormal troponin) Lab Data Result diagrams: 08/10/21 05:44 08/10/21 05:44 Labs: Lab Results 08/09/21 08/09/21 08/09/21 Range/Units 09:05 09:05 09:05 WBC 7.3 (4.5-11.0) X10^3/uL RBC 5.02 (4.5-5.9) X10^6/uL Hgb 14.6 (13.5-17.5) g/dL Hct 43.0 (41-53) % MCV 85.5 (80-100) fL MCH 29.0 (26-34) PG MCHC 33.9 (30-36) % RDW 13.9 (11.6-14.8) % Plt Count 214 (150-400) X10^3/uL Neut % (Auto) 81.2 H (50-75) % Lymph % (Auto) 9.7 L (25-40) % Sterling % (Auto) 8.4 (3-14) % Eos % (Auto) 0.5 L (2-4) % Baso % (Auto) 0.2 (0-2) % Neut # (Auto) 5900 (5279-5906) /uL Lymph # (Auto) 700 L (7123-2948) /uL Sterling # (Auto) 600 (0-900) /uL Eos # (Auto) 0 (0-450) /uL Baso # (Auto) 0 (0-100) /uL Sodium 134 L (137-145) mmol/L Potassium 3.9 (3.4-5.1) mmol/L Chloride 101 (98-107) mmol/L Carbon Dioxide 25 (22-32) mmol/L BUN 19 (9-20) mg/dL Creatinine 0.80 (0.66-1.25) mg/dL Estimated GFR > 60.0 (>60) mL/min BUN/Creatinine Ratio 23.8 H (6-22) Glucose 114 H (80-110) mg/dL Lactate (0.7-2.1) mmol/L Calcium 9.1 (8.4-10.2) mg/dL Total Bilirubin 1.1 (0.2-1.3) mg/dL AST 56 (17-59) IU/L ALT 48 (<50) IU/L Alkaline Phosphatase 56 (38-126) U/L Total Creatine Kinase (55-170) U/L CK-MB (CK-2) (<2.37) ng/mL CK-MB (CK-2) Rel Index (1.5-5.0) % Troponin I (0.01-0.034) ng/mL Total Protein 6.9 (6.3-8.2) g/dL Albumin 3.8 (3.5-5.0) g/dL Globulin 3.1 (1.7-4.1) g/dL Albumin/Globulin Ratio 1.2 (1.0-2.8) SARS-CoV-2 (PCR) Positive H (Negative) 08/09/21 08/09/21 Range/Units 09:05 09:05 WBC (4.5-11.0) X10^3/uL RBC (4.5-5.9) X10^6/uL Hgb (13.5-17.5) g/dL Hct (41-53) % MCV (80-100) fL MCH (26-34) PG MCHC (30-36) % RDW (11.6-14.8) % Plt Count (150-400) X10^3/uL Neut % (Auto) (50-75) % Lymph % (Auto) (25-40) % Sterling % (Auto) (3-14) % Eos % (Auto) (2-4) % Baso % (Auto) (0-2) % Neut # (Auto) (9234-6516) /uL Lymph # (Auto) (7695-4384) /uL Sterling # (Auto) (0-900) /uL Eos # (Auto) (0-450) /uL Baso # (Auto) (0-100) /uL Sodium (137-145) mmol/L Potassium (3.4-5.1) mmol/L Chloride (98-107) mmol/L Carbon Dioxide (22-32) mmol/L BUN (9-20) mg/dL Creatinine (0.66-1.25) mg/dL Estimated GFR (>60) mL/min BUN/Creatinine Ratio (6-22) Glucose (80-110) mg/dL Lactate 1.5 (0.7-2.1) mmol/L Calcium (8.4-10.2) mg/dL Total Bilirubin (0.2-1.3) mg/dL AST (17-59) IU/L ALT (<50) IU/L Alkaline Phosphatase (38-126) U/L Total Creatine Kinase 111 (55-170) U/L CK-MB (CK-2) 0.98 (<2.37) ng/mL CK-MB (CK-2) Rel Index 0.9 L (1.5-5.0) % Troponin I 0.069 H (0.01-0.034) ng/mL Total Protein (6.3-8.2) g/dL Albumin (3.5-5.0) g/dL Globulin (1.7-4.1) g/dL Albumin/Globulin Ratio (1.0-2.8) SARS-CoV-2 (PCR) (Negative) Imaging Data Chest x-ray: Radiologist's Impression: [address] [address] XRay Report Signed Patient: Keny Call MR#: [id number] : 1945 Acct:[id number] Age/Sex: 76 / M Date of Service: 08/09/21 Loc: ED Accession Number: [id number] ?? Procedure: XR chest 1V Ordering Provider: Ayden Beverly MD PROCEDURE:? XR CHEST 1V ? INDICATIONS:? Dyspnea ? TECHNIQUE:? One view of the chest was acquired.? ? COMPARISON:? [facility], CR, XR CHEST 2V, 08/29/2020, 15:10. ? FINDINGS:? ? Surgical changes and devices:? None.? ? Lungs and pleura:? Low lung volumes are noted. This causes a crowded appearance to the lung markings and limits evaluation.? Bilateral patchy interstitial type infiltrates are seen. No pleural effusions or pneumothorax.? ? Mediastinum:? Mediastinal contours appear normal.? Heart size is normal.? ? Bones and chest wall:? No suspicious bony lesions.? Overlying soft tissues appear unremarkable.? IMPRESSION:? Bilateral interstitial infiltrates are seen.? Please consider COVID pneumonia.? ? ? Dictated by: Pete Duran M.D. on 08/09/2021 at 10:01 ? ? Approved by: Pete Duran M.D. on 08/09/2021 at 10:01 ? ECG Data Interpretation: Normal sinus rhythm rate 80, T inversion inferior leads. No ST elevation. MDM Narrative Medical decision making narrative: appropriate for admit. Reviewed with radiographer cardiac catheterization. At this time no heparin. Never had chest pain. No dyspnea. Discharge Plan Departure Patient Disposition: Admitted as Observation Clinical Impression: Elevated troponin, 2019 novel coronavirus-infected pneumonia (NCIP) Admit Date/Time: 08/09/21 11:58 Admit Provider: Merlin Hui
[2021-08-09] MEDS: SODIUM CHLORIDE 0.9% 1,000 ML 1000 ML IV (09:45)
[2021-08-09] MEDS: ONDANSETRON 4 MG/2 ML INJ IV (09:50)
[2021-08-09 09:52] LABS: COVID19 -Nasal RAPID POSITIVE (Negative)
[2021-08-09 10:13] LABS: Creatine Kinase 111 U/L (55-170)
[2021-08-09 10:26] LABS: Troponin I 0.069 ng/mL (0.01-0.034)
[2021-08-09 10:28] LABS: CKMB % Relative Index 0.9 % (1.5-5.0); Creatine Kinase MB 0.98 ng/mL (<2.37)
--- NOTE | 2021-08-09 10:29 | DI.RAD.S_ITS ---
PROCEDURE: XR CHEST 1V INDICATIONS: Dyspnea TECHNIQUE: One view of the chest was acquired. COMPARISON: [facility], CR, XR CHEST 2V, 08/29/2020, 15:10. FINDINGS: Surgical changes and devices: None. Lungs and pleura: Low lung volumes are noted. This causes a crowded appearance to the lung markings and limits evaluation. Bilateral patchy interstitial type infiltrates are seen. No pleural effusions or pneumothorax. Mediastinum: Mediastinal contours appear normal. Heart size is normal. Bones and chest wall: No suspicious bony lesions. Overlying soft tissues appear unremarkable. IMPRESSION: Bilateral interstitial infiltrates are seen. Please consider COVID pneumonia. Dictated by: Pete Duran M.D. on 08/09/2021 at 10:01 Approved by: Pete Duran M.D. on 08/09/2021 at 10:01
--- NOTE | 2021-08-09 12:10 | PC.NURSE ---
Patient states Covid onset was 07/29/21, feels feverish, dehydrated, cough is persistent, dark urine and body aches.
[2021-08-09] MEDS: ASPIRIN 81 MG CHEW TAB 324 MG PO (12:42)
[2021-08-09] MEDS: SODIUM CHLORIDE 0.9% 1,000 ML 100 ML IV (14:50)
[2021-08-09 15:34] LABS: Troponin I 0.065 ng/mL (0.01-0.034)
[2021-08-09] MEDS: ACETAMINOPHEN 325 MG TABLET 650 MG PO (16:18)
--- NOTE | 2021-08-09 16:32 | DIET.PN1 ---
Dietary Progress Note Assessment: 76y M admitted for dehydration secondary to ongoing Covid19 status. Ht: 180.34 cm Wt: 89.5 kg BMI: 27.5 Last BM: 08/09/21 (08/09/21 12:15) MNA: 9 Arben Score: 19 Diet: 08/09/21 09:15 NPO Diet Diet Modifications: NPO Type: Strict 08/09/21 Dinner Heart Healthy Diet Diet Modifications: Labs: RBC 5.02 X10^6/uL (4.5-5.9) 08/09/21 09:05 Hgb 14.6 g/dL (13.5-17.5) 08/09/21 09:05 Hct 43.0 % (41-53) 08/09/21 09:05 Creatinine 0.80 mg/dL (0.66-1.25) 08/09/21 09:05 Lactate 1.5 mmol/L (0.7-2.1) 08/09/21 09:05 Interventions: 1. Recc ONS Ensure Max c lunch to support pts nutrition status and protein needs in addition to meal trays. Monitoring/Evaluations: prn Electronically Signed by: Yasmin Fisher 08/09/21 16:32 Clinical Dietitian [address] [address]
--- NOTE | 2021-08-09 18:53 | P.HP_ITS ---
History of Present Illness History of Present Illness Date Patient Seen: 08/09/21 Time Patient Seen: 12:00 Chief complaint: Covid+, dehydrated Narrative: Mr. Call is a 76M with PMH CAD s/p stent, HTN who presents to the hospital feeling malaise. He states he did not get vaccinated against COVID. He started feeling poorly as early as three weeks ago with poor appetite. He tested positive for COVID on 07/30. He has been having malaise, fatigue, cough. He was not having chest pain. Because he kept feeling worse he presented to the hospital. In the ED workup was done. He was noted be afebrile, heart rate in the 90s, blood pressure normal, respiratory rate 18, O2 sats as low as 91%. Labs notable for WBC 7.3, hgb 14.6, platelets 214. Sodium 134, creatinine 0.8, LFTs ok, COVID positive. Trop 0.069. EKG with nonspecific twave inversion. Chest xray with bilateral interstitial infiltrates. ED physician did discuss with cardiology who recommended giving aspirin, and to do an ECHO and stress test. He was given aspirin and admitted for further treatment. Patient History Medical History Arthritis Asthma Back pain Chicken pox Chronic cough (~2004) Coronary artery disease (~2002) Easy bruisability Enlarged prostate Grief Hearing loss (~1993) Malaria (~2007) Measles Pulmonary hypertension (~2002) Seasonal allergies Shoulder pain Thoracic spine pain Vision disorder Surgical History Anesthesia History of surgery (~1971) S/P excision of lipoma Family & Social History Family History Father Heart disease Grandmother Stomach cancer Mother Dementia Social History: household members spouse Prior Living Arrangements House Safety & Behavioral: Feels Safe in Current Yes Environment Been Physically Hurt or No Threatened By a Person Suicidal Ideation Description None Suicide Plan Description No Plan Tobacco & Substance use: Smoking Status Former smoker alcohol intake current alcohol intake frequency holiday/special occasion Substance Use Type does not use Meds Home Medications and Allergies Home Medications Medication Instructions Recorded Confirmed Type niacin 1,000 mg tablet,extended 500 mg PO BID #0 06/13/11 07/12/21 History release aspirin 81 mg tablet,delayed 81 mg PO BID 02/03/19 07/12/21 History release atorvastatin 10 mg tablet See Rx Instructions .ROUTE 08/29/20 07/12/21 Rx .COMPLEX #90 tablet acetaminophen 500 mg capsule 1,000 mg PO TID PRN cap 12/20/20 07/12/21 History lisinopril 20 mg tablet 20 mg PO BID #180 tab 12/20/20 07/12/21 Rx tizanidine 4 mg capsule 4 mg PO BEDTIME PRN #30 cap 06/08/21 07/12/21 Rx Allergies Allergy/AdvReac Type Severity Reaction Status Date / Time tetanus and diphtheria Allergy Mild ILL Verified 07/12/21 15:23 toxoids [tetanus & diphtheria toxoids] Opioids - Morphine Analogues AdvReac Intermediate Nausea Verified 07/12/21 15:23 Review of Systems Review of Systems Narrative: 14 systems reviewed and negative aside from what is noted in HPI Exam Vital Signs (past 8 hours): - 08/09/21 11:00 08/09/21 11:30 08/09/21 12:00 Temperature Pulse Rate 93 H 87 91 H Respiratory Rate 29 H 18 17 Blood Pressure Pulse Oximetry 94 94 92 08/09/21 12:30 08/09/21 13:00 08/09/21 13:41 Temperature 98.7 F Pulse Rate 87 89 93 H Respiratory Rate 18 19 16 Blood Pressure 113/62 141/78 H Pulse Oximetry 92 94 95 08/09/21 16:23 Temperature 100.9 F H Pulse Rate 95 H Respiratory Rate 18 Blood Pressure 137/65 Pulse Oximetry 92 Oxygen Delivery Method Room Air Oxygen Flow Rate 0 Narrative Exam Narrative: GEN: ill appearing HEENT: dry mucous membranes, PERRL CV: regular rate and rhythm, no murmurs PULM: coarse breath sounds bilaterally ABD: soft, nontender, nondistended, no organomegaly EXT: warm and well perfused with no edema SKIN: no rashes NEURO: awake, alert, oriented, no focal deficits Objective Labs Result Diagrams: 08/09/21 09:05 08/09/21 09:05 Labs: Laboratory Results - last 24 hr 08/09/21 08/09/21 08/09/21 09:05 09:05 09:05 WBC 7.3 RBC 5.02 Hgb 14.6 Hct 43.0 MCV 85.5 MCH 29.0 MCHC 33.9 RDW 13.9 Plt Count 214 Neut % (Auto) 81.2 H Lymph % (Auto) 9.7 L Hutchinson % (Auto) 8.4 Eos % (Auto) 0.5 L Baso % (Auto) 0.2 Neut # (Auto) 5900 Lymph # (Auto) 700 L [place]inson # (Auto) 600 Eos # (Auto) 0 Baso # (Auto) 0 Sodium 134 L Potassium 3.9 Chloride 101 Carbon Dioxide 25 BUN 19 Creatinine 0.80 Estimated GFR > 60.0 BUN/Creatinine Ratio 23.8 H Glucose 114 H Lactate Calcium 9.1 Total Bilirubin 1.1 AST 56 ALT 48 Alkaline Phosphatase 56 Total Creatine Kinase CK-MB (CK-2) CK-MB (CK-2) Rel Index Troponin I Total Protein 6.9 Albumin 3.8 Globulin 3.1 Albumin/Globulin Ratio 1.2 SARS-CoV-2 (PCR) Positive H 08/09/21 08/09/21 08/09/21 09:05 09:05 12:00 WBC RBC Hgb Hct MCV MCH MCHC RDW Plt Count Neut % (Auto) Lymph % (Auto) Hutchinson % (Auto) Eos % (Auto) Baso % (Auto) Neut # (Auto) Lymph # (Auto) [place] # (Auto) Eos # (Auto) Baso # (Auto) Sodium Potassium Chloride Carbon Dioxide BUN Creatinine Estimated GFR BUN/Creatinine Ratio Glucose Lactate 1.5 Calcium Total Bilirubin AST ALT Alkaline Phosphatase Total Creatine Kinase 111 CK-MB (CK-2) 0.98 CK-MB (CK-2) Rel Index 0.9 L Troponin I 0.069 H 0.065 H Total Protein Albumin Globulin Albumin/Globulin Ratio SARS-CoV-2 (PCR) Assessment & Plan Assessment & Plan narrative: Mr. Call is a 76M with PMH CAD, HTN who presents with malaise from COVID pneumonia 1. Acute hypoxemic respiratory failure due to COVID pneumonia -sats as low as 91% -would qualify for remdesivir, dexamethasone so ordered -O2 as needed -patient is unfortunately unvaccinated 2. Elevated troponin -likely due to cardiac demand from COVID -no chest pain -aspirin, statin ordered -trend troponins -will consider ECHO and stress test, but likely elevated troponin due to COVID 3. HTN -hold lisinopril for now 4. HL -statin as above CODE: DNR Proxy: Oksana Call, spouse I have utilized all available resources to review update, and confirm his current medications Time Spent With Patient Critical Care time: I spent a total of [] minutes of critical care time on this patient's care today; this time is exclusive of procedural time. Quality VTE Deep Vein Thrombosis/Pulmonary Embolism Present on Admission: No MIPS - Admit I confirm the patient?s Advance Care Plan is present, Code status is documented, Surrogate decision maker is in patient?s record [If Yes, STOP here]: Yes
[2021-08-09 19:00] LABS: Troponin I 0.063 ng/mL (0.01-0.034)
--- NOTE | 2021-08-09 21:33 | PC.NURSE ---
Evening Shit Note Patient declined IV Remdesivir and Decadron on day shift despite nursing education. MD aware and updated. Patient declined PO Lipitor this evening. Patient states he will discharge home when he completes second bag of IV fluids that are currently running. MD aware and updated.
[2021-08-10 00:50] VITALS: BP 134/68; PULSE 89; RESP 17; TEMP 37.6; O2SAT 93
[2021-08-10 01:00] VITALS: O2SAT 93
[2021-08-10 01:16] LABS: Troponin I 0.059 ng/mL (0.01-0.034)
[2021-08-10 05:00] VITALS: BP 138/71; PULSE 92; RESP 20; TEMP 37.2; O2SAT 91
[2021-08-10 06:04] LABS: Add Manual Diff / Slide Review NO; Basophils Absolute Auto 0 /uL (0-100); Basophils Percent Auto 0.2 % (0-2); Eosinophils Absolute Auto 100 /uL (0-450); Hematocrit 38.2 % (41-53); Hemoglobin 12.8 g/dL (13.5-17.5); Lymphocytes Absolute Auto 500 /uL (1100-4500); Lymphocytes Percent Auto 7.7 % (25-40); Mean Corpuscular HGB Conc 33.5 % (30-36); Mean Corpuscular Volume 86.6 fL (80-100); Monocytes Absolute Auto 500 /uL (0-900); Monocytes Percent Auto 9.1 % (3-14); Neutrophils Absolute Auto 4800 /uL (1500-7000); Platelet Count 222 X10^3/uL (150-400); Red Blood Cell Count 4.41 X10^6/uL (4.5-5.9); Red Cell Distribution Width 14.1 % (11.6-14.8); White Blood Cell Count 5.8 X10^3/uL (4.5-11.0)
[2021-08-10 06:17] LABS: BUN Creatinine Ratio 16.3 (6-22); Blood Urea Nitrogen 13 mg/dL (9-20); Calcium 8.7 mg/dL (8.4-10.2); Carbon Dioxide 28 mmol/L (22-32); Chloride 102 mmol/L (98-107); Estimated Glomerular Filt Rate > 60.0 mL/min (>60); Glucose 111 mg/dL (80-110); HEMOLYSIS 19 (0-50); Potassium 4.8 mmol/L (3.4-5.1); Sodium 135 mmol/L (137-145)
[2021-08-10 08:57] VITALS: BP 132/71; PULSE 96; RESP 16; TEMP 37.9; O2SAT 94
[2021-08-10 09:00] VITALS: O2SAT 94
--- NOTE | 2021-08-10 09:22 | CM.DANOTE ---
DCP: Case received, EMR reviewed and met with patient. Called patient's room, since he is positive for COVID-19. Introduced self and role. Was able to obtain some information from patient over the phone regarding his baseline activity level prior to hospitalization. Patient is a 76 year old male who admitted yesterday morning to the care of the hospitalist team. PCP: Dr. Robles. Payer: confirmed: Medicare/[employer]. Patient came to the hospital via private vehicle secondary to having increased weakness, secondary to his being diagnosed with COVID-19. Patient had been recently diagnosed, as well as his , and were self-quarantined at home. They are both unvaccinated. Patient holds diagnosis if COVID Pneumonia. Called patient in his room. He is alert and oriented, and resides with his spouse here in [place]. He is independent at his baseline, and his provider is Dr. Robles at [facility]. P: Patient has discharge orders to go home today. Geovanna Meyer RN/Depot Manager Discharge Planning/Care Management CM Discharge Assessment Start: 08/10/21 09:20 Freq: Status: Active Protocol: Document 08/10/21 09:21 (Rec: 08/10/21 09:22 [id number]) Discharge Planning Assessment Assigned Egyptologist Geovanna Meyer RN/Depot Manager Advance Directives? Yes Advance Directives on File No History Provided By Patient,Medical Record Prior Living Arrangements House Household Members spouse Type of transporation used prior to Drives own vehicle admit Independent with ADL's Yes Is patient alert and oriented? Yes Caregiver for Another No Barriers to Discharge No Discharge Plan Home Transportation Arrangement Spouse Whiteboard Updated in Patient Room with No name and ext. # of Egyptologist Comment Patient is positive for COVID- 19, did not enter room. Review Status In Process Next Review Type Continued Stay Review
--- NOTE | 2021-08-10 10:40 | PC.NURSE ---
Pt is A&Ox3, ambulatory in the room with steady gait on RA. VSS, with low grade temp and strong productive cough. Pt has been declining treatment and medications and expressing wish to discharge home. MD at bedside this a.m. evaluating patient and clears him for discharge with recommendations for follow up as well as vaccination when he is improved. Pt verbalizes understanding and acknowledges discharge medications as well as follow up. No new medications ordered for patient. RN escorted patient via w/ch to private vehicle with daughter this a.m. with all of his belongings.
--- NOTE | 2021-08-10 12:13 | PM.DS.1 ---
History of Present Illness History of Present Illness Chief complaint: Covid+, dehydrated Narrative: Mr. Call is a 76M with PMH CAD s/p stent, HTN who presents to the hospital feeling malaise. He states he did not get vaccinated against COVID. He started feeling poorly as early as three weeks ago with poor appetite. He tested positive for COVID on 07/30. He has been having malaise, fatigue, cough. He was not having chest pain. Because he kept feeling worse he presented to the hospital. In the ED workup was done. He was noted be afebrile, heart rate in the 90s, blood pressure normal, respiratory rate 18, O2 sats as low as 91%. Labs notable for WBC 7.3, hgb 14.6, platelets 214. Sodium 134, creatinine 0.8, LFTs ok, COVID positive. Trop 0.069. EKG with nonspecific twave inversion. Chest xray with bilateral interstitial infiltrates. ED physician did discuss with cardiology who recommended giving aspirin, and to do an ECHO and stress test. He was given aspirin and admitted for further treatment. Discharge Providers Provider Date of admission: 08/09/21 11:58 Discharge Date: 08/10/21 Primary care physician: Yusef Robles DO Consults: 08/09/21 15:48 Consult to Dietitian, Adult Routine Comment: hasn't been eating or drinking much at home Reason For Exam: pt reports weight loss 15 pounds Discharge provider: Merlin Hui MD Summary Hospital Course Discharge Diagnosis: 1. Acute hypoxemic respiratory failure due to COVID pneumonia 2. Cardiac demand ischemia 3. HTN 4. HL Hospital Course: Mr. Call was admitted with COVID pneumonia. He was ordered for remdesivir, dexamethasone. He refused these medications. His troponin was initially mildly high but then downtrended. He never had chest pain. He likely had elevated troponin in setting of COVID pneumonia. He said he felt better and he was discharged home per his request. Exam Vital Signs (past 8 hours): Oxygen Delivery Method Room Air Oxygen Flow Rate 0 Narrative Exam Narrative: GEN: no acute distress CV: regular rate and rhythm, no murmurs PULM: coarse breath sounds bilaterally ABD: soft, nontender, nondistended, no organomegaly EXT: warm and well perfused with no edema SKIN: no rashes NEURO: awake, alert, oriented, no focal deficits Objective Labs Result Diagrams: 08/10/21 05:44 08/10/21 05:44 [facility] Medical History Arthritis Asthma Back pain Chicken pox Chronic cough (~2004) Coronary artery disease (~2002) Easy bruisability Enlarged prostate Grief Hearing loss (~1993) Malaria (~2007) Measles Pulmonary hypertension (~2002) Seasonal allergies Shoulder pain Thoracic spine pain Vision disorder Surgical History Anesthesia History of surgery (~1971) S/P excision of lipoma Family History Father Heart disease Grandmother Stomach cancer Mother Dementia Social History marital status: household members: spouse occupational status: previously employed Smoking Status: Former smoker alcohol intake: current substance use type: does not use Discharge Plan Discharge Plan Patient Disposition: Home Provider Discharge Comment: Mr. Call was admitted with cough, malaise, dehydration. He was found to have COVID pneumonia. His oxygen levels were low. He was recommended treatment with remdesivir and dexamethasone. He declined treatment. He was given IV fluids and felt better and wanted to be discharged home. He can follow up to see if he qualifies for monoclonal antibody for COVID treatment. He is recommended to get vaccinated to COVID once his symptoms resolve. He is at risk of getting sicker due to declining COVID treatment. If breathing worsens he is recommended to come back to the hospital for treatment. Discharge orders & Medications Prescriptions: Continued niacin 1,000 MG tablet extended release 500 mg PO BID Qty: 0 RF: 0 atorvastatin 10 mg tablet See Rx Instructions .ROUTE .COMPLEX Qty: 90 RF: 3 lisinopril 20 mg tablet 20 mg PO BID Qty: 180 RF: 3 acetaminophen 500 mg capsule 1,000 mg PO TID PRN (Reason: pain) RF: 0 tizanidine 4 mg capsule 4 mg PO BEDTIME PRN (Reason: muscle spasticity) Qty: 30 RF: 1 aspirin 81 mg Tablet,Delayed Release (Dr/Ec) 81 mg PO BID RF: 0 Follow up/Referrals: Yusef Robles DO [Primary Care Provider] - Diet/Activity/Treatments Diet: Regular Visit Report/Discharge Packet Instructions: DI for COVID-19 (Suspected or Confirmed ), How to Care for Someone with COVID-19, About the COVID-19 Vaccine Discharge Data Primary Care Provider: Yusef Robles Attending Provider: Merlin Hui VTE Deep Vein Thrombosis/Pulmonary Embolism Present on Admission: No
== END 2021-08-10 09:30 | disposition home or self-care (01) ==
LOC: ED 10:44 → AC 11:59
PROVIDERS: Admitting Provider Internal Medicine; Emergency Provider Emergency Medicine; PCP Family Medicine; Referring Provider Emergency Medicine; Visit Provider Internal Medicine
DX: U07.1 COVID-19 (principal); J96.01 Acute respiratory failure with hypoxia; J12.82 Pneumonia due to coronavirus disease 2019; E86.0 Dehydration; R77.8 Other specified abnormalities of plasma proteins; I25.89 Other forms of chronic ischemic heart disease; I10 Essential (primary) hypertension; E78.5 Hyperlipidemia, unspecified; Z20.822 Contact with and (suspected) exposure to COVID-19
CPT/HCPCS: 36415; 71045; 80048; 80053; 82550; 82553; 83605; 84484; 85025; 87635; 93005; 93010; 96361; 96374; 99284; C9803; G0378; J1100; J2405

== ENCOUNTER → 2021-09-03 08:03 | Outpatient (CLI) | payer MEDICARE, OTHER, SELFPAY ==
[2021-08-09 12:15] VITALS: BMI 27.5
[2021-09-03 09:15] LABS: Cholesterol 153 mg/dL (140-199); HDL Cholesterol 46 mg/dL (40-60); LDL Cholesterol Calculated 89 mg/dL (<100); Triglycerides 91 mg/dL (35-150)
[2021-09-03 09:47] LABS: Prostate Specific Antigen Scrn 2.19 ng/mL (0.1-4.0)
== END ==
PROVIDERS: PCP Family Medicine; Referring Provider Family Medicine; Visit Provider Family Medicine
DX: E78.2 Mixed hyperlipidemia (principal); Z12.5 Encounter for screening for malignant neoplasm of prostate; N40.0 Benign prostatic hyperplasia without lower urinary tract symptoms
CPT/HCPCS: 36415; 80061; G0103

== ENCOUNTER → 2022-05-08 14:18 | Outpatient (CLI) | payer MEDICARE, OTHER, SELFPAY ==
[2021-08-09 12:15] VITALS: BMI 27.5
[2022-05-08 14:52] LABS: Add Manual Diff / Slide Review NO; Basophils Absolute Auto 0 /uL (0-100); Basophils Percent Auto 0.1 % (0-2); Eosinophils Absolute Auto 0 /uL (0-450); Eosinophils Percent Auto 0.1 % (2-4); Hematocrit 39.6 % (41-53); Hemoglobin 13.4 g/dL (13.5-17.5); Lymphocytes Absolute Auto 700 /uL (1100-4500); Lymphocytes Percent Auto 6.1 % (25-40); Mean Corpuscular HGB Conc 33.8 % (30-36); Mean Corpuscular Hemoglobin 29.2 PG (26-34); Mean Corpuscular Volume 86.6 fL (80-100); Monocytes Absolute Auto 600 /uL (0-900); Monocytes Percent Auto 5.4 % (3-14); Neutrophils Absolute Auto 10500 /uL (1500-7000); Neutrophils Percent Auto 88.3 % (50-75); Platelet Count 314 X10^3/uL (150-400); Red Blood Cell Count 4.57 X10^6/uL (4.5-5.9); Red Cell Distribution Width 13.8 % (11.6-14.8); White Blood Cell Count 11.9 X10^3/uL (4.5-11.0)
[2022-05-08 14:59] LABS: Hemoglobin A1C% w Est Avg Glu 5.2 % (4.0-6.0)
[2022-05-08 15:02] LABS: Alanine Aminotransferase 23 IU/L (<50); Albumin 4.5 g/dL (3.5-5.0); Albumin Globulin Ratio 1.4 (1.0-2.8); Alkaline Phosphatase 64 U/L (38-126); Aspartate Aminotransferase 26 IU/L (17-59); BUN Creatinine Ratio 28.3 (6-22); Bilirubin Total 0.8 mg/dL (0.2-1.3); Blood Urea Nitrogen 26 mg/dL (9-20); Calcium 9.8 mg/dL (8.4-10.2); Carbon Dioxide 26 mmol/L (22-32); Chloride 106 mmol/L (98-107); Cholesterol 152 mg/dL (140-199); Estimated Glomerular Filt Rate > 60 mL/min (>60); Globulin 3.2 g/dL (1.7-4.1); Glucose 117 mg/dL (80-110); HDL Cholesterol 49 mg/dL (40-60); HEMOLYSIS < 15 (0-50); LDL Cholesterol Calculated 90 mg/dL (<100); Potassium 4.5 mmol/L (3.4-5.1); Sodium 139 mmol/L (137-145); Total Protein 7.7 g/dL (6.3-8.2); Triglycerides 65 mg/dL (35-150)
[2022-05-08 15:33] LABS: Prostate Specific Antigen Scrn 2.65 ng/mL (0.1-4.0)
[2022-05-08 15:52] LABS: Vitamin B12 528 pg/mL (239-931)
== END ==
PROVIDERS: PCP Family Medicine; Referring Provider Family Medicine; Visit Provider Family Medicine
DX: E78.2 Mixed hyperlipidemia (principal); E11.9 Type 2 diabetes mellitus without complications; G62.9 Polyneuropathy, unspecified; Z12.5 Encounter for screening for malignant neoplasm of prostate
CPT/HCPCS: 36415; 80053; 80061; 82607; 83036; 85025; G0103

== ENCOUNTER → 2022-05-14 10:06 | Outpatient (CLI) | payer MEDICARE, OTHER, SELFPAY ==
[2021-08-09 12:15] VITALS: BMI 27.5
[2022-05-14 10:19] LABS: Add Manual Diff / Slide Review NO; Basophils Absolute Auto 100 /uL (0-100); Basophils Percent Auto 0.8 % (0-2); Eosinophils Absolute Auto 100 /uL (0-450); Eosinophils Percent Auto 1.6 % (2-4); Hematocrit 40.1 % (41-53); Hemoglobin 13.6 g/dL (13.5-17.5); Lymphocytes Absolute Auto 1900 /uL (1100-4500); Lymphocytes Percent Auto 21.2 % (25-40); Mean Corpuscular Hemoglobin 29.7 PG (26-34); Mean Corpuscular Volume 87.4 fL (80-100); Monocytes Absolute Auto 900 /uL (0-900); Monocytes Percent Auto 9.4 % (3-14); Neutrophils Absolute Auto 6100 /uL (1500-7000); Platelet Count 318 X10^3/uL (150-400); Red Blood Cell Count 4.59 X10^6/uL (4.5-5.9); Red Cell Distribution Width 13.7 % (11.6-14.8)
== END ==
PROVIDERS: PCP Family Medicine; Referring Provider Family Medicine; Visit Provider Family Medicine
DX: D64.9 Anemia, unspecified (principal); D72.820 Lymphocytosis (symptomatic); G62.9 Polyneuropathy, unspecified; R61 Generalized hyperhidrosis
CPT/HCPCS: 36415; 85025

== ENCOUNTER → 2022-06-11 13:50 | Outpatient (CLI) | payer MEDICARE, OTHER, SELFPAY ==
[2021-08-09 12:15] VITALS: BMI 27.5
[2022-06-11 15:44] LABS: Lactate Dehydrogenase 507 U/L (313-618)
[2022-06-11 16:09] LABS: TSH w/ Reflex to FT4 2.21 uIU/mL (0.47-4.68)
[2022-06-13 13:10] LABS: Albumin 4.3 g/dL (2.9-4.4); Alpha 1 Globulin 0.2 g/dL (0.0-0.4); Alpha 2 Globulin 0.7 g/dL (0.4-1.0); Beta 1 Globulin 0.8 g/dL (0.7-1.3); Gamma Globulin 0.7 g/dL (0.4-1.8); Protein, Total 6.7 g/dL (6.0-8.5)
[2022-06-14 14:37] LABS: ANA Screen, IFA Negative (.)
== END ==
PROVIDERS: PCP Family Medicine; Referring Provider Family Medicine; Visit Provider Family Medicine
DX: R61 Generalized hyperhidrosis (principal); G62.9 Polyneuropathy, unspecified
CPT/HCPCS: 36415; 83615; 84155; 84165; 84443; 86038

== ENCOUNTER → 2022-09-10 14:11 | Outpatient (CLI) | payer MEDICARE, OTHER, SELFPAY ==
[2021-08-09 12:15] VITALS: BMI 27.5
--- NOTE | 2022-09-10 14:13 | DI.RAD.S_ITS ---
PROCEDURE: XR CHEST 2V INDICATIONS: Cough TECHNIQUE: 2 views of the chest were acquired. COMPARISON: [facility], , XR CHEST 1V, 08/09/2021, 10:35. FINDINGS: Surgical changes and devices: None. Lungs and pleura: Lung volumes are low. Lungs are clear. No pleural effusions or pneumothorax. Mediastinum: Mediastinal contours are normal. Heart size is normal. Bones and chest wall: No suspicious bony abnormalities. Soft tissues appear unremarkable. IMPRESSION: Expiratory chest demonstrating no acute cardiopulmonary disease. Dictated by: Jeyson Ornelas [facility] Interpreted: Omar Smyth MD on 09/10/2022 at 15:36 Approved by: Omar Smyth M.D. on 09/11/2022 at 20:58
== END ==
PROVIDERS: PCP Family Medicine; Referring Provider Family Medicine; Visit Provider Family Medicine
DX: R05.9 Cough, unspecified (principal)
CPT/HCPCS: 71046

== ENCOUNTER → 2022-09-13 08:42 | Outpatient (CLI) | payer MEDICARE, OTHER, SELFPAY ==
[2021-08-09 12:15] VITALS: BMI 27.5
--- NOTE | 2022-09-13 08:43 | DI.MRI.S_ITS ---
PROCEDURE: MR HEAD/BRAIN WO CON INDICATIONS: memory loss, long-term word-finding difficulty TECHNIQUE: Non-contrast axial T1 spin echo, axial T2 fast spin echo, sagittal and axial FLAIR, coronal T2 fast spin echo, axial gradient echo, axial diffusion and ADC through the brain. COMPARISON: [facility], MR, MR HEAD/BRAIN WO CON, 06/08/2018, 7:47. FINDINGS: Image quality: Excellent. CSF spaces: Ventricles appear symmetric in size and shape. Basal cisterns are patent. No extra-axial fluid collections. Brain: No intracranial bleeds or mass effects. There is cerebral volume loss for age. There are periventricular and deep white matter chronic small vessel ischemic changes. Brainstem appears normal. Diffusion-weighted images show no acute ischemic insults. No chronic ischemic insults. Normal intravascular flow voids are present. Skull and face: Calvarial bone marrow is normal in signal. Orbits are normal. Note is made of bilateral lens replacements. Sinuses: Sinuses and mastoids are clear. IMPRESSION: Brain MRI within normal limits for age, stable from prior. Dictated by: Pete Duran M.D. on 09/13/2022 at 11:38 Approved by: Pete Duran M.D. on 09/13/2022 at 11:40
== END ==
PROVIDERS: PCP Family Medicine; Referring Provider Family Medicine; Visit Provider Family Medicine
DX: R51.9 Headache, unspecified (principal); R41.3 Other amnesia; R47.89 Other speech disturbances
CPT/HCPCS: 70551

== ENCOUNTER → 2022-09-23 12:11 | Outpatient (CLI) | payer MEDICARE, OTHER, SELFPAY ==
[2021-08-09 12:15] VITALS: BMI 27.5
[2022-09-23 13:19] LABS: COVID19 -Nasal RAPID Negative (Negative)
== END ==
PROVIDERS: PCP Family Medicine; Referring Provider Internal Medicine; Visit Provider Internal Medicine
DX: Z20.822 Contact with and (suspected) exposure to COVID-19 (principal)
CPT/HCPCS: 87635; C9803

== ENCOUNTER → 2022-09-23 12:13 | Outpatient (CLI) | payer MEDICARE, OTHER, SELFPAY ==
[2021-08-09 12:15] VITALS: BMI 27.5
--- NOTE | 2022-10-16 08:00 | PM.PFT.1 ---
Pulmonary Function Test Referral & Results Date Patient Seen: 09/23/22 Requesting provider: Eric Murray Results: The spirometry demonstrates an FVC of 3.66 L which is 90% of predicted. The FEV1 was measured at 2.81 L which is 96% of predicted. The FEV1/FVC ratio was 77 which is 106% of predicted. Following the administration of bronchodilator there was no appreciable change to above normal numbers. Lung volumes show an SVC of 4.25 L which is 96% of predicted. The diffusing capacity was measured at 25.15 which is 77% of predicted. The maximum voluntary ventilation was normal Interpretation: This study demonstrates probably normal pulmonary function. There is a minimal reduction diffusing capacity which may suggest the presence of very mild disease at the capillary alveolar level Clinical correlation suggested
== END ==
PROVIDERS: PCP Family Medicine; Referring Provider Family Medicine; Visit Provider Family Medicine
DX: J45.30 Mild persistent asthma, uncomplicated (principal); U09.9 Post COVID-19 condition, unspecified; Z87.891 Personal history of nicotine dependence; Z20.822 Contact with and (suspected) exposure to COVID-19
CPT/HCPCS: 87635; 94060; 94726; 94729; C9803

== ENCOUNTER 2022-09-26 09:21 | Emergency (ER) | payer MEDICARE, OTHER, SELFPAY ==
[2021-08-09 12:15] VITALS: BMI 27.5
[2022-09-26] VITALS (8 sets, daily range): BP systolic 135–160; BP diastolic 72–79; PULSE 84–104; RESP 16; TEMP 36.8; O2SAT 91–97; BMI 28.7
--- NOTE | 2022-09-26 09:40 | DI.RAD.S_ITS ---
PROCEDURE: XR ANKLE RT MIN 3V INDICATIONS: foot pain and swelling TECHNIQUE: 3 views of the ankle were acquired. COMPARISON: None. FINDINGS: Bones: No fractures or dislocations. Ankle mortise is normally aligned. No suspicious bony lesions. Soft tissues: No tibiotalar joint effusion. Achilles tendon appears normal. IMPRESSION: No acute finding. Dictated by: Adalid Rutledge M.D. on 09/26/2022 at 9:02 Approved by: Adalid Rutledge M.D. on 09/26/2022 at 9:02
--- NOTE | 2022-09-26 09:40 | DI.RAD.S_ITS ---
PROCEDURE: XR FOOT RT MIN 3V INDICATIONS: foot pain and swelling TECHNIQUE: 3 views of the foot were acquired. COMPARISON: [facility], CR, XR ANKLE RT MIN 3V, 09/26/2022, 9:46. FINDINGS: Bones: Moderate hallux valgus. No fracture or dislocation. No suspicious lytic or blastic osseous lesion. Soft tissues: No tibiotalar joint effusion. Achilles tendon appears normal. IMPRESSION: No acute finding. Dictated by: Adalid Rutledge M.D. on 09/26/2022 at 9:01 Approved by: Adalid Rutledge M.D. on 09/26/2022 at 9:02
--- NOTE | 2022-09-26 09:43 | DI.US.S_ITS ---
PROCEDURE: US PERIPH VENOUS LOW EXTREM RT INDICATIONS: EDEMA TECHNIQUE: Real-time imaging, as well as color and pulse Doppler interrogation, were performed of the lower extremity deep veins from the inguinal ligament to the popliteal fossa. COMPARISON: None. FINDINGS: The common femoral, femoral and popliteal veins are normally compressible, and free of intraluminal thrombus. Color and pulse Doppler demonstrate normal phasic intraluminal flow. There is normal augmentation response to distal compression maneuver. IMPRESSION: No sonographic evidence of DVT. Dictated by: Adalid Rutledge M.D. on 09/26/2022 at 9:35 Approved by: Adalid Rutledge M.D. on 09/26/2022 at 9:36
--- NOTE | 2022-09-26 11:26 | DI.MRI.S_ITS ---
PROCEDURE: MR ANKLE RT WO CON INDICATIONS: ankle pain TECHNIQUE: Noncontrast sagittal T1 spin echo and T2 fast spin echo with fat saturation, axial proton density fast spin echo and T2 fast spin echo with fat saturation, coronal T1 spin echo and T2 fast spin echo with fat saturation through the ankle/hindfoot. COMPARISON: None. FINDINGS: Image quality: Excellent. Bones and joints: Diffuse soft tissue swelling and edema surrounding ankle joint is seen. Osteoarthritic changes are noted throughout midfoot and hindfoot joints with joint space narrowing, subchondral sclerosis and small marginal osteophyte formation. No fracture or dislocation. No hindfoot coalitions. Tiny 3 mm osteochondral injury involving lateral talar dome weight-bearing portion is noted . Small to moderate tibiotalar and subtalar joint effusion is noted, no gross loose bodies. Medial structures: The posterior tibialis, flexor digitorum longus, and flexor hallucis longus tendons are intact. Small amount of fluid distending flexor tendon sheath is seen. The posterior tibial neurovascular bundle appears normal within the tarsal tunnel, without extrinsic mass effect. The deltoid ligament and spring ligament are thickened. Lateral structures: The anterior talofibular ligament is not visualized concerning for ATFL rupture. The calcaneofibular, and posterior talofibular ligaments appear thickened. More superiorly, the anterior and posterior tibiofibular ligaments appear intact, as is the intermalleolar ligament. The tibiofibular syndesmosis is normal in width at 2 mm or less. The peroneus longus and brevis tendons are normal in size and morphology. Small amount of fluid distending peroneus tendon sheath is seen. Adjacent bony peroneal tubercle and retrotrochlear prominence are normal in size. The sinus tarsi demonstrates normal fatty signal, without edema, fibrosis, or cyst formation. Visualized sinus tarsi components (cervical ligament, interosseous talocalcaneal ligament, roots of the inferior extensor retinaculum) appear normal. The calcaneonavicular and calcaneocuboid components of the bifurcate ligament appear intact. The dorsal calcaneocuboid ligament appears intact. Anterior structures: The tibialis anterior, extensor hallucis longus, and extensor digitorum longus tendons appear intact. The dorsal talonavicular ligament appears intact. Posterior and plantar structures: Thickened distal 5.8 cm segment of Achilles tendon extending to its insertion on posterior calcaneus is seen with moderate intrasubstance T2 hyperintense signal. No full-thickness Achilles tendon rupture. Medial and lateral bands of the plantar fascia are of normal thickness. No abductor digiti quinti muscle atrophy to suggest Baker neuropathy. IMPRESSION: 1. Low to moderate grade intrasubstance partial-thickness tear and tendinosis involving distal 5.8 cm segment of Achilles tendon. No full-thickness Achilles tendon rupture. 2. Suggestion of low-grade tenosynovitis involving flexor tendons and peroneus tendons. 3. Diffuse ankle soft tissue swelling and edema. No acute fracture or dislocation. [id number] midfoot and hindfoot joint osteoarthritis. Small to moderate joint effusion, no gross loose bodies. Tiny osteochondral injury involving lateral talar dome weight-bearing portion. 4. Low-grade medial ankle ligament sprain. Suggestion of ruptured anterior talofibular ligament. Low-grade sprain involving posterior talofibular ligament and calcaneofibular ligament. Dictated by: Abdirashid Hutson M.D. on 09/26/2022 at 15:41 Approved by: Abdirashid Hutson M.D. on 09/26/2022 at 15:53
--- NOTE | 2022-09-26 11:35 | ED_ITS ---
HPI - Extremity Problem General Chief complaint: Extremity Problem,Nontraumatic Stated complaint: RT foot had a hard ball now vein is swollen t-4 Time Seen by Provider: 09/26/22 11:26 Source: patient Mode of arrival: Ambulatory History of Present Illness HPI Narrative: Patient complains of right ankle pain and swelling and bruising for the past 4 days. No known injury. Patient had similar event 2 years ago and had bruising around the left ankle. He was seen here and according to diagnosis was Chao cyst. Did have vascular ultrasound as well as x-ray of the knee. However this problem was on the left lower extremity. Patient denies any chest pain or dyspnea or palpitations. Patient is not on any blood thinners. Patient is not on any fluoroquinolones. Patient does not want any opiate pain medication. He states he gets too nauseous. He is not eaten anything this morning or today Related Data Home Medications Medication Instructions Recorded Confirmed aspirin 81 mg tablet,delayed 81 mg PO BID 02/03/19 06/11/22 release acetaminophen 500 mg capsule 1,000 mg PO TID PRN pain 12/20/20 06/11/22 Previous Rx's Medication Instructions Recorded tizanidine 4 mg capsule 4 mg PO BEDTIME PRN muscle 06/08/21 spasticity #30 caps atorvastatin 10 mg tablet See Rx Instructions .Route 11/14/21 .COMPLEX #90 tabs lisinopril 20 mg tablet See Rx Instructions .Route 08/16/22 .COMPLEX #180 tabs Allergies Allergy/AdvReac Type Severity Reaction Status Date / Time tetanus and diphtheria Allergy Mild ILL Verified 09/26/22 09:33 toxoids [tetanus & diphtheria toxoids] Opioids - Morphine Analogues AdvReac Intermediate Nausea Verified 09/26/22 09:33 Review of Systems Review of Systems Narrative: GENERAL: negative chills, fatigue, malaise, fever, sweats. HEENT: negative sinus pain, ear pain, sore throat RESPIRATORY: negative dyspnea, cough CARDIOVASCULAR: negative chest pain, palpitations GASTROINTESTINAL: negative nausea, vomiting, abdominal pain : negative dysuria, frequency, hematuria MUSCULOSKELETAL: Positive muscle or bony pain SKIN: negative rash, skin lesions NEUROLOGIC: negative weakness, numbness Patient History Medical History Arthritis Asthma Back pain Belching Chicken pox Chronic cough (~2004) Coronary artery disease (~2002) Easy bruisability Enlarged prostate Grief Hearing loss (~1993) Hemangioma Lymphocytosis Malaria (~2007) Measles Memory problem Night sweats Normocytic anemia Peripheral neuropathy Pulmonary hypertension (~2002) Seasonal allergies Shoulder pain Thoracic spine pain Vision disorder Surgical History Anesthesia History of surgery (~1971) S/P excision of lipoma Family History Father Heart disease Grandmother Stomach cancer Mother Dementia Social History marital status: household members: spouse occupational status: previously employed Smoking Status: Former smoker alcohol intake: current substance use type: does not use Smoking Status: Former smoker alcohol intake frequency: holidays/special occasions only Substance Use Type: does not use Exam Narrative Exam Narrative: GENERAL: in no distress, not toxic not dyspneic. Right knee to toes exposed. HEAD: Normocephalic. EXTREMITIES: No gross deformities. Examination right knee nontender. Able to flex and extend at the knee without difficulty. The examination of the foot and ankle. There is reproducible distal Achilles tendon tenderness at the insertion into the calcaneus. Skin is intact. There is lateral ecchymosis to the site. Right foot is edematous at the lateral aspect. Strong pedal pulse brisk cap refills of the toes. Skin is intact. Light touch intact to foot and toes. Rich test intact with squeezing the calf and able to plantar flex passively. No palpable cords on the calf. Calf is nontender. NEURO: AOx4. SKIN: Warm and dry PSYCH: Not anxious, is cooperative Initial Vital Signs Initial Vital Signs: Vital Signs Temperature 98.2 F 09/26/22 09:33 Pulse Rate 104 H 09/26/22 09:33 Respiratory Rate 16 09/26/22 09:33 Blood Pressure 160/79 H 09/26/22 09:33 Pulse Oximetry 97 09/26/22 09:33 Oxygen Delivery Method 09/26/22 09:33 Procedures Orthopedic Splinting/Casting Injury #1: Time of procedure: 17:08 Side: right Lower Extremity Injury Location: ankle Lower Extremity Immobilizer: boot orthosis (Walking boot) Post splinting neuro exam: intact Post splinting vascular exam: intact Placed by: Nursing Course Course Course Narrative: No new issues during course of stay Orders Ordered: ED Orders 09/26/22 09:40 XR ankle RT min 3V Stat XR foot RT min 3V Stat 09/26/22 09:43 US periph venous low extrem rt Stat 09/26/22 11:26 MR ankle RT wo con Stat Discontinued Medications Ketorolac Tromethamine (Ketorolac 30 Mg/Ml Vial) 30 mg IM NOW ONE Stop: 09/26/22 11:35 Last Admin: 09/26/22 12:29 Dose: 30 mg Documented By: MAKENZIE Ondansetron HCl (Ondansetron 4 Mg Odt) 4 mg SL NOW ONE Stop: 09/26/22 11:35 Last Admin: 09/26/22 12:54 Dose: Not Given Documented By: MARIO Reevaluation(s) Reevaluation #1: Spoke with patient and results of MRI as well as my conversation with orthopedics. He will be referred to podiatry provider in their group. He understands and has gone to their office before for other reasons. Return precautions reviewed with him. He has tolerated the walking boot and crutches very well. Time: 17:05 Consultations Consultation #1: Spoke with orthopedic dr moe, he would like patient to follow up with his partner Podiatry, Dr. Jo, placed his foot and ankle into a walking boot and slightly plantar flexed with padding under the heel and use crutches. Time: 17:06 Vital Signs Vital signs: Vital Signs - 8 hr 09/26/22 10:57 09/26/22 11:00 09/26/22 11:40 Pulse Rate 95 H 91 H 89 Blood Pressure Pulse Oximetry 96 95 95 09/26/22 12:00 09/26/22 13:38 09/26/22 13:39 Pulse Rate 84 95 H Blood Pressure 141/79 H Pulse Oximetry 94 96 09/26/22 13:39 09/26/22 17:00 09/26/22 17:00 Pulse Rate 95 H Blood Pressure 135/72 Pulse Oximetry 96 91 MDM - Extremity (Nontraumatic) Differential Diagnosis Differential diagnosis: Likely cellulitis, superficial thrombophlebitis, lower extremity edema, deep vein thrombosis of lower extremity and other (Achilles tendon/ankle fracture/strain/sprain) Imaging Data US - DVT: Radiologist's Impression: [address] [address] Ultrasound Report Signed Patient: Keny Call MR#: [id number] : 1945 Acct:[id number] Age/Sex: 77 / M Date of Service: 09/26/22 Loc: ED Accession Number: [id number] ?? Procedure: US periph venous low extrem rt Ordering Provider: Ayden Beverly MD PROCEDURE:? US PERIPH VENOUS LOW EXTREM RT ? INDICATIONS:? EDEMA ? TECHNIQUE:? Real-time imaging, as well as color and pulse Doppler interrogation, were performed of the lower extremity deep veins from the inguinal ligament to the popliteal fossa.? ? COMPARISON:? None. ? FINDINGS:? The common femoral, femoral and popliteal veins are normally compressible, and free of intraluminal thrombus.? Color and pulse Doppler demonstrate normal phasic intraluminal flow.? There is normal augmentation response to distal compression maneuver. ? ? IMPRESSION:? No sonographic evidence of DVT. ? ? Dictated by: Adalid Rutledge M.D. on 09/26/2022 at 9:35 ? ? Approved by: Adalid Rutledge M.D. on 09/26/2022 at 9:36 ? Extremity x-ray #1: Radiologist's Impression: [address] [address] XRay Report Signed Patient: Keny Call MR#: [id number] : 1945 Acct:[id number] Age/Sex: 77 / M Date of Service: 09/26/22 Loc: ED Accession Number: [id number] ?? Procedure: XR foot RT min 3V Ordering Provider: Ayden Beverly MD PROCEDURE:? XR FOOT RT MIN 3V ? INDICATIONS:? foot pain and swelling ? TECHNIQUE:? 3 views of the foot were acquired.? ? COMPARISON:? [facility], , XR ANKLE RT MIN 3V, 09/26/2022, 9:46. ? FINDINGS:? ? Bones:? Moderate hallux valgus.? No fracture or dislocation.? No suspicious lytic or blastic osseous lesion. ? Soft tissues:? No tibiotalar joint effusion.? Achilles tendon appears normal.? ? ? IMPRESSION:? No acute finding. ? ? Dictated by: Adalid Rutledge M.D. on 09/26/2022 at 9:01 ? ? Approved by: Adalid Rutledge M.D. on 09/26/2022 at 9:02 ? Extremity x-ray #2: Radiologist's Impression: [address] [address] XRay Report Signed Patient: Keny Call MR#: [id number] : 1945 Acct:[id number] Age/Sex: 77 / M Date of Service: 09/26/22 Loc: ED Accession Number: [id number] ?? Procedure: XR ankle RT min 3V Ordering Provider: Ayden Beverly MD PROCEDURE:? XR ANKLE RT MIN 3V ? INDICATIONS:? foot pain and swelling ? TECHNIQUE:? 3 views of the ankle were acquired.? ? COMPARISON:? None. ? FINDINGS:? ? Bones:? No fractures or dislocations.? Ankle mortise is normally aligned.? No suspicious bony lesions.? ? Soft tissues:? No tibiotalar joint effusion.? Achilles tendon appears normal.? ? ? IMPRESSION:? No acute finding. ? Dictated by: Adalid Rutledge M.D. on 09/26/2022 at 9:02 ? ? Approved by: Adalid Rutledge M.D. on 09/26/2022 at 9:02 ? MRI without contrast right ankle: Radiologist's Impression: [address] [address] Magnetic Resonance Report Signed Patient: Keny Call MR#: [id number] : 1945 Acct:[id number] Age/Sex: 77 / M Date of Service: 09/26/22 Loc: ED Accession Number: [id number] ?? Procedure: MR ankle RT wo con Ordering Provider: Ayden Beverly MD PROCEDURE:? MR ANKLE RT WO CON ? INDICATIONS:? ankle pain ? TECHNIQUE:? Noncontrast sagittal T1 spin echo and T2 fast spin echo with fat saturation, axial proton density fast spin echo and T2 fast spin echo with fat saturation, coronal T1 spin echo and T2 fast spin echo with fat saturation through the ankle/hindfoot.? ? COMPARISON:? None. ? FINDINGS:? Image quality:? Excellent.? ? Bones and joints:? Diffuse soft tissue swelling and edema surrounding ankle joint is seen.? Osteoarthritic changes are noted throughout midfoot and hindfoot joints with joint space narrowing, subchondral sclerosis and small marginal osteophyte formation.? No fracture? or dislocation.? No hindfoot coalitions.? Tiny 3 mm osteochondral injury involving lateral talar dome weight-bearing portion is noted .? Small to moderate tibiotalar and subtalar joint effusion is noted, no gross loose bodies. ? Medial structures:? The posterior tibialis, flexor digitorum longus, and flexor hallucis longus tendons are intact.? Small amount of fluid distending flexor tendon sheath is seen.? The posterior tibial neurovascular bundle appears normal within the tarsal tunnel, without extrinsic mass effect.? The deltoid ligament and spring ligament are thickened. ? Lateral structures:? The anterior talofibular ligament is not visualized concerning for ATFL rupture.? The calcaneofibular, and posterior talofibular ligaments appear thickened. ?More superiorly, the anterior and posterior tibiofibular ligaments appear intact, as is the intermalleolar ligament.? The tibiofibular syndesmosis is normal in width at 2 mm or less.? The peroneus longus and brevis tendons are normal in size and morphology.? Small amount of fluid distending peroneus tendon sheath is seen.? Adjacent bony peroneal tubercle and retrotrochlear prominence are normal in size.? The sinus tarsi demonstrates normal fatty signal, without edema, fibrosis, or cyst formation.? Visualized sinus tarsi components (cervical ligament, interosseous talocalcaneal ligament, roots of the inferior extensor retinaculum) appear normal.? The calcaneonavicular and calcaneocuboid components of the bifurcate ligament appear intact.? The dorsal calcaneocuboid ligament appears intact.? ? Anterior structures:? The tibialis anterior, extensor hallucis longus, and extensor digitorum longus tendons appear intact.? The dorsal talonavicular ligament appears intact.? ? Posterior and plantar structures:? Thickened distal 5.8 cm segment of Achilles tendon extending to its insertion on posterior calcaneus is seen with moderate intrasubstance T2 hyperintense signal.? No full-thickness Achilles tendon rupture.? Medial and lateral bands of the plantar fascia are of normal thickness.? No abductor digiti quinti muscle atrophy to suggest Baker neuropathy.? ? IMPRESSION:? 1. Low to moderate grade intrasubstance partial-thickness tear and tendinosis involving distal 5.8 cm segment of Achilles tendon.? No full-thickness Achilles tendon rupture. ? 2. Suggestion of low-grade tenosynovitis involving flexor tendons and peroneus tendons. ? 3. Diffuse ankle soft tissue swelling and edema.? No acute fracture or dislocation.? [id number] midfoot and hindfoot joint osteoarthritis.? Small to moderate joint effusion, no gross loose bodies.? Tiny osteochondral injury involving lateral talar dome weight-bearing portion. ? 4. Low-grade medial ankle ligament sprain.? Suggestion of ruptured anterior talofibular ligament.? Low-grade sprain involving posterior talofibular ligament and calcaneofibular ligament.? ? ? Dictated by: Abdirashid Hutson M.D. on 09/26/2022 at 15:41 ? ? Approved by: Abdirashid Hutson M.D. on 09/26/2022 at 15:53 ? MDM Narrative Medical decision making narrative: Appropriate for discharge home and follow up with Orthopedics. Walking boot and crutches are provided. Patient brought his own crutches. Pain is controlled. Return precautions reviewed with them. Referral for Orthopedics provided. Discharge Plan Departure Patient Disposition: Home Clinical Impression: Partial tear of right Achilles tendon, Right ankle sprain Instructions: DI for Ankle Sprain, DI for Achilles Tendon Rupture Activity Restrictions/Additional Instructions: No weight-bearing on your foot and ankle. Use provided walking boot and crutches when ambulating. May use ibuprofen for pain. May remove boot when at rest or sleeping. Please call provided orthopedic/podiatry office in the morning for office appointment next week for re-evaluation. Return if worse or for any questions or concerns Prescriptions: No Action atorvastatin 10 mg tablet See Rx Instructions .ROUTE .COMPLEX Qty: 90 3RF Dose Instruction: take 1 tablet by mouth at bedtime Rx Instructions: take 1 tablet by mouth at bedtime lisinopril 20 mg tablet See Rx Instructions .ROUTE .COMPLEX Qty: 180 0RF Dose Instruction: take 1 tablet by mouth twice a day Rx Instructions: take 1 tablet by mouth twice a day acetaminophen 500 mg capsule 1,000 mg PO TID PRN (Reason: pain) Rx Instructions: NTE 3 grams in 24 hours tizanidine 4 mg capsule 4 mg PO BEDTIME PRN (Reason: muscle spasticity) Qty: 30 1RF aspirin 81 mg Tablet,Delayed Release (Dr/Ec) 81 mg PO BID Referrals: Jacqui Jo DPM [Physician] - Temo Keenan MD [Physician] - Jas Robles DO [Primary Care Provider] - Visit Report Forms: Patient Portal/API
[2022-09-26] MEDS: KETOROLAC 30 MG/ML VIAL IM (12:29)
--- NOTE | 2022-09-26 12:54 | PC.NURSE ---
pt states he woke up with a tingling sensation in his right foot and extreme pain to bear weight. he can feel sensation but is unable to walk. using crutches currently. did take advil and thought it helped some.
== END 2022-09-26 17:10 | disposition home or self-care (01) ==
PROVIDERS: Emergency Provider Emergency Medicine; PCP Family Medicine
DX: S86.011A Strain of right Achilles tendon, initial encounter (principal); X58.XXXA Exposure to other specified factors, initial encounter
CPT/HCPCS: 73610; 73630; 73721; 93971; 96372; 99283; J1885

== ENCOUNTER 2023-11-08 06:20 | Emergency (ER) | payer MEDICARE, OTHER, SELFPAY ==
[2021-08-09 12:15] VITALS: BMI 27.5
[2023-11-08] VITALS (17 sets, daily range): BP systolic 104–191; BP diastolic 59–88; PULSE 56–80; RESP 15–30; TEMP 36.4; O2SAT 91–97; BMI 29.5
--- NOTE | 2023-11-08 06:29 | DI.RAD.S_ITS ---
PROCEDURE: XR CHEST 1V INDICATIONS: chest pressure TECHNIQUE: One view of the chest was acquired. COMPARISON: [facility], CR, XR CHEST 2V, 09/10/2022, 14:12. FINDINGS: Surgical changes and devices: None. Lungs and pleura: Lungs are clear. No pleural effusions or pneumothorax. Mediastinum: Mediastinal contours appear normal. Heart size is normal. Bones and chest wall: No suspicious bony lesions. Overlying soft tissues appear unremarkable. IMPRESSION: No acute cardiopulmonary abnormality is seen. Approved by: Freddy Dixon M.D. on 11/08/2023 at 11:37
--- NOTE | 2023-11-08 06:34 | ED_ITS ---
HPI - Chest Pain <Casey Orellana DO - Last Filed: 11/11/23 18:14> General Chief Complaint: Chest Pain Stated Complaint: just dont feel right (heart?) Time Seen by Provider: 11/08/23 06:21 Source: patient Mode of arrival: Ambulatory Limitations: no limitations History of Present Illness HPI narrative: Patient is an 78-year-old male. Known history of coronary artery disease. States he has had a stent in the past but this was several years ago. He had a cardiac catheterization at the end of last year however he states that no new stents were placed. This was done because of having chest pain on exertion. He states that the cardiologists of the time told him that they were going to ?medically manage? him. He does take an aspirin. Is on a statin. Has been taking all of his medications as directed. He states he woke up this morning feeling relatively well. It was after he took a shower when he started to have chest pressure on the left side of his chest. Also states his left shoulder felt ?weird? overall he states he just does not feel right. No shortness of breath. No nausea or vomiting. No lower extremity swelling. Discomfort not worse with palpation or movement or breathing. Related Data Home Medications Medication Instructions Recorded Confirmed aspirin 81 mg tablet,delayed 81 mg PO BID 02/03/19 02/11/23 release atorvastatin 10 mg tablet 20 mg BEDTIME 11/08/23 metoprolol succinate 50 mg 50 mg PO DAILY 11/08/23 11/08/23 tablet,extended release 24 hr Allergies Allergy/AdvReac Type Severity Reaction Status Date / Time tetanus and diphtheria Allergy Mild ILL Verified 02/11/23 14:55 toxoids [tetanus & diphtheria toxoids] Opioids - Morphine Analogues AdvReac Intermediate Nausea Verified 02/11/23 14:55 Review of Systems <Casey Orellana DO - Last Filed: 11/11/23 18:14> Constitutional Constitutional: Reports system reviewed and no additional complaints, except as documented Cardiovascular Cardiovascular: Reports system reviewed and no additional complaints, except as documented Respiratory Respiratory: Reports system reviewed and no additional complaints, except as documented Gastrointestinal Gastrointestinal: Reports system reviewed and no additional complaints, except as documented Integumentary/Breasts Skin/Breast: Reports system reviewed and no additional complaints, except as documented Neurologic Neurologic: Reports system reviewed and no additional complaints, except as documented Hematologic/Lymphatic On Anticoagulants: No Patient History <Casey Orellana DO - Last Filed: 11/11/23 18:14> Medical History Chest pain at rest Hemangioma Belching Normocytic anemia Lymphocytosis Memory problem Peripheral neuropathy Night sweats Grief Back pain Thoracic spine pain Shoulder pain Enlarged prostate Easy bruisability Arthritis Vision disorder Chronic cough (~2004) Asthma Seasonal allergies Measles Malaria (~2007) Chicken pox Hearing loss (~1993) Pulmonary hypertension (~2002) Coronary artery disease (~2002) Surgical History S/P excision of lipoma Anesthesia History of surgery (~1971) Family History Father Heart disease Grandmother Stomach cancer Mother Dementia Social History marital status: household members: spouse occupational status: previously employed Smoking Status: Former smoker alcohol intake: current substance use type: does not use Smoking Status: Former smoker alcohol intake frequency: holidays/special occasions only Substance Use Type: does not use Exam <Casey Orellana DO - Last Filed: 11/11/23 18:14> Initial Vital Signs Initial Vital Signs: Vital Signs Blood Pressure 191/88 H 11/08/23 06:26 Const General: cooperative, comfortable and No ill appearing HENMT Head: normal to inspection and normocephalic Resp Effort & Inspection: normal respiratory effort Auscultation: clear to auscultation bilaterally Cardio Rate: regular rate Rhythm: regular rhythm GI Inspection: normal to inspection and non-distended Neuro General: patient alert, patient awake, patient oriented x3 and moves all extremities Extrem General: No edema <Dia Cronin MD - Last Filed: 11/08/23 12:55> Initial Vital Signs Initial Vital Signs: Vital Signs Blood Pressure 191/88 H 11/08/23 06:26 Course <Casey Orellana DO - Last Filed: 11/11/23 18:14> Orders Ordered: Discontinued Medications Aspirin (Aspirin 81 Mg Chew Tab) 324 mg PO NOW ONE Stop: 11/08/23 06:36 Last Admin: 11/08/23 06:45 Dose: 324 mg Documented By: TAD Nitroglycerin (Nitroglycerin 0.4 Mg Sl Tab) 0.4 mg SL [id number] PRN PRN Reason: Chest Pain Last Admin: 11/08/23 06:56 Dose: 0.4 mg Documented By: Admin: 11/08/23 06:50 Dose: 0.4 mg Documented By: Admin: 11/08/23 06:45 Dose: 0.4 mg Documented By: TAD Vital Signs Vital signs: Vital Signs - 8 hr 11/08/23 06:26 11/08/23 06:27 11/08/23 06:29 Temperature 97.5 F L Pulse Rate 80 65 Respiratory Rate 17 Blood Pressure 191/88 H 191/88 H Pulse Oximetry 97 96 Oxygen Delivery Method Room Air 11/08/23 06:30 11/08/23 06:45 11/08/23 06:50 Temperature Pulse Rate 65 Respiratory Rate Blood Pressure 191/88 H 132/79 Pulse Oximetry 96 Oxygen Delivery Method 11/08/23 06:52 11/08/23 06:52 11/08/23 06:56 Temperature Pulse Rate 66 Respiratory Rate 23 Blood Pressure 132/79 134/82 Pulse Oximetry 93 Oxygen Delivery Method 11/08/23 06:57 11/08/23 06:57 11/08/23 07:00 Temperature Pulse Rate 66 Respiratory Rate 30 H Blood Pressure 134/82 131/68 Pulse Oximetry 92 Oxygen Delivery Method 11/08/23 07:00 11/08/23 07:03 11/08/23 07:03 Temperature Pulse Rate 66 66 Respiratory Rate 21 22 Blood Pressure 121/65 Pulse Oximetry 92 96 Oxygen Delivery Method 11/08/23 07:30 11/08/23 07:30 11/08/23 08:00 Temperature Pulse Rate 58 L 56 L Respiratory Rate 18 18 Blood Pressure 104/60 Pulse Oximetry 91 93 Oxygen Delivery Method 11/08/23 08:00 11/08/23 08:30 11/08/23 08:30 Temperature Pulse Rate 60 Respiratory Rate 19 Blood Pressure 112/65 129/61 Pulse Oximetry 94 Oxygen Delivery Method 11/08/23 09:00 11/08/23 09:00 11/08/23 09:30 Temperature Pulse Rate 56 L 60 Respiratory Rate 15 19 Blood Pressure 106/59 L Pulse Oximetry 96 95 Oxygen Delivery Method 11/08/23 09:30 11/08/23 10:00 11/08/23 10:00 Temperature Pulse Rate 62 Respiratory Rate 19 Blood Pressure 119/65 122/67 Pulse Oximetry 96 Oxygen Delivery Method <Dia Cronin MD - Last Filed: 11/08/23 12:55> Orders Ordered: Discontinued Medications Aspirin (Aspirin 81 Mg Chew Tab) 324 mg PO NOW ONE Stop: 11/08/23 06:36 Last Admin: 11/08/23 06:45 Dose: 324 mg Documented By: TAD Nitroglycerin (Nitroglycerin 0.4 Mg Sl Tab) 0.4 mg SL [id number] PRN PRN Reason: Chest Pain Last Admin: 11/08/23 06:56 Dose: 0.4 mg Documented By: Admin: 11/08/23 06:50 Dose: 0.4 mg Documented By: Admin: 11/08/23 06:45 Dose: 0.4 mg Documented By: TAD Vital Signs Vital signs: Vital Signs - 8 hr 11/08/23 06:26 11/08/23 06:27 11/08/23 06:29 Temperature 97.5 F L Pulse Rate 80 65 Respiratory Rate 17 Blood Pressure 191/88 H 191/88 H Pulse Oximetry 97 96 Oxygen Delivery Method Room Air 11/08/23 06:30 11/08/23 06:45 11/08/23 06:50 Temperature Pulse Rate 65 Respiratory Rate Blood Pressure 191/88 H 132/79 Pulse Oximetry 96 Oxygen Delivery Method 11/08/23 06:52 11/08/23 06:52 11/08/23 06:56 Temperature Pulse Rate 66 Respiratory Rate 23 Blood Pressure 132/79 134/82 Pulse Oximetry 93 Oxygen Delivery Method 11/08/23 06:57 11/08/23 06:57 11/08/23 07:00 Temperature Pulse Rate 66 Respiratory Rate 30 H Blood Pressure 134/82 131/68 Pulse Oximetry 92 Oxygen Delivery Method 11/08/23 07:00 11/08/23 07:03 11/08/23 07:03 Temperature Pulse Rate 66 66 Respiratory Rate 21 22 Blood Pressure 121/65 Pulse Oximetry 92 96 Oxygen Delivery Method 11/08/23 07:30 11/08/23 07:30 11/08/23 08:00 Temperature Pulse Rate 58 L 56 L Respiratory Rate 18 18 Blood Pressure 104/60 Pulse Oximetry 91 93 Oxygen Delivery Method 11/08/23 08:00 11/08/23 08:30 11/08/23 08:30 Temperature Pulse Rate 60 Respiratory Rate 19 Blood Pressure 112/65 129/61 Pulse Oximetry 94 Oxygen Delivery Method 11/08/23 09:00 11/08/23 09:00 11/08/23 09:30 Temperature Pulse Rate 56 L 60 Respiratory Rate 15 19 Blood Pressure 106/59 L Pulse Oximetry 96 95 Oxygen Delivery Method 11/08/23 09:30 11/08/23 10:00 11/08/23 10:00 Temperature Pulse Rate 62 Respiratory Rate 19 Blood Pressure 119/65 122/67 Pulse Oximetry 96 Oxygen Delivery Method MDM - Chest Pain <Casey Orellana, - Last Filed: 11/11/23 18:14> Lab Data 11/08/23 06:35 11/08/23 06:35 Labs: Lab Results 11/08/23 11/08/23 Range/Units 06:35 08:25 WBC 8.3 (4.5-11.0) X10^3/uL RBC 5.29 (4.5-5.9) X10^6/uL Hgb 15.3 (13.5-17.5) g/dL Hct 44.9 (41-53) % MCV 84.9 (80-100) fL MCH 29.0 (26-34) PG MCHC 34.1 (30-36) % RDW 13.7 (11.6-14.8) % Plt Count 229 (150-400) X10^3/uL Neut % (Auto) 69.6 (50-75) % Lymph % (Auto) 19.6 L (25-40) % [place] % (Auto) 7.9 (3-14) % Eos % (Auto) 2.1 (2-4) % Baso % (Auto) 0.8 (0-2) % Neut # (Auto) 5800 (0371-6157) /uL Lymph # (Auto) 1600 (7301-3692) /uL [place] # (Auto) 700 (0-900) /uL Eos # (Auto) 200 (0-450) /uL Baso # (Auto) 100 (0-100) /uL Sodium 138 (137-145) mmol/L Potassium 4.3 (3.4-5.1) mmol/L Chloride 106 (98-107) mmol/L Carbon Dioxide 24 (22-32) mmol/L BUN 24 H (9-20) mg/dL Creatinine 0.75 (0.66-1.25) mg/dL Estimated GFR > 60 (>60) mL/min BUN/Creatinine Ratio 32.0 H (6-22) Glucose 101 (80-110) mg/dL Calcium 9.7 (8.4-10.2) mg/dL Total Bilirubin 0.8 (0.2-1.3) mg/dL AST 26 (17-59) IU/L ALT 24 (<50) IU/L Alkaline Phosphatase 60 (38-126) U/L Total Creatine Kinase 53 L (55-170) U/L Troponin I < 0.012 0.028 (0.01-0.034) ng/mL Total Protein 7.5 (6.3-8.2) g/dL Albumin 4.2 (3.5-5.0) g/dL Globulin 3.3 (1.7-4.1) g/dL Albumin/Globulin Ratio 1.3 (1.0-2.8) Lipase 363 H (23-300) U/L ECG Data Attestation: I personally reviewed and interpreted this ECG as follows: Interpretation: Sinus rhythm Ventricular rate is 65 Normal axis Normal QRS Normal QTC No ST T wave changes MDM Narrative Medical decision making narrative: Patient is hypertensive. We will administer aspirin and nitroglycerin. No ischemic changes on his EKG. Labs ordered. Patient is stable. Call to obtain records from his catheterizations of the end of last year. Care turned over to day provider to follow-up and disposition. <Dia Cronin MD - Last Filed: 11/08/23 12:55> Lab Data Labs: Lab Results 11/08/23 11/08/23 Range/Units 06:35 08:25 WBC 8.3 (4.5-11.0) X10^3/uL RBC 5.29 (4.5-5.9) X10^6/uL Hgb 15.3 (13.5-17.5) g/dL Hct 44.9 (41-53) % MCV 84.9 (80-100) fL MCH 29.0 (26-34) PG MCHC 34.1 (30-36) % RDW 13.7 (11.6-14.8) % Plt Count 229 (150-400) X10^3/uL Neut % (Auto) 69.6 (50-75) % Lymph % (Auto) 19.6 L (25-40) % [place] % (Auto) 7.9 (3-14) % Eos % (Auto) 2.1 (2-4) % Baso % (Auto) 0.8 (0-2) % Neut # (Auto) 5800 (8879-2741) /uL Lymph # (Auto) 1600 (1571-2996) /uL [place] # (Auto) 700 (0-900) /uL Eos # (Auto) 200 (0-450) /uL Baso # (Auto) 100 (0-100) /uL Sodium 138 (137-145) mmol/L Potassium 4.3 (3.4-5.1) mmol/L Chloride 106 (98-107) mmol/L Carbon Dioxide 24 (22-32) mmol/L BUN 24 H (9-20) mg/dL Creatinine 0.75 (0.66-1.25) mg/dL Estimated GFR > 60 (>60) mL/min BUN/Creatinine Ratio 32.0 H (6-22) Glucose 101 (80-110) mg/dL Calcium 9.7 (8.4-10.2) mg/dL Total Bilirubin 0.8 (0.2-1.3) mg/dL AST 26 (17-59) IU/L ALT 24 (<50) IU/L Alkaline Phosphatase 60 (38-126) U/L Total Creatine Kinase 53 L (55-170) U/L Troponin I < 0.012 0.028 (0.01-0.034) ng/mL Total Protein 7.5 (6.3-8.2) g/dL Albumin 4.2 (3.5-5.0) g/dL Globulin 3.3 (1.7-4.1) g/dL Albumin/Globulin Ratio 1.3 (1.0-2.8) Lipase 363 H (23-300) U/L MDM Narrative Medical decision making narrative: Patient is hypertensive. We will administer aspirin and nitroglycerin. No ischemic changes on his EKG. Labs ordered. Patient is stable. Call to obtain records from his catheterizations of the end of last year. Care turned over to day provider to follow-up and disposition. Laboratory work is reviewed. Patient's initial troponin undetectable, repeat trop 0.028. Patient reassessed, he states that he has been pain-free since arrival to the emergency department. Reached out to on-call cardiology Dr. Mitchell about the delta troponins, who was able to review cath report from April of 2023- patient has less than 30% disease in his coronaries. Recommended medical management only. Patient was reassessed, he continues to be pain-free. Discussed cardiology recommendations with the patient and his at bedside. Patient will call his management supervisor for follow up appointment in his happy to go home at this time. Discharge Plan Departure Patient Disposition: Home Clinical Impression: Chest pain Instructions: DI for Chest Pain Prescriptions: No Action aspirin 81 mg Tablet,Delayed Release (Dr/Ec) 81 mg PO BID metoprolol succinate 50 mg tablet extended release 24 hr 50 mg PO DAILY atorvastatin 10 mg tablet 20 mg BEDTIME Referrals: Jas Robles DO [Primary Care Provider] - Keyshawn Bass MD [Physician] - Stand Alone Forms: Patient Portal/API
--- NOTE | 2023-11-08 06:35 | PC.NURSE ---
pt states it feels like something is stuck in his chest mid sternal and left chest
[2023-11-08 06:44] LABS: Add Manual Diff / Slide Review NO; Basophils Absolute Auto 100 /uL (0-100); Basophils Percent Auto 0.8 % (0-2); Eosinophils Absolute Auto 200 /uL (0-450); Eosinophils Percent Auto 2.1 % (2-4); Hematocrit 44.9 % (41-53); Hemoglobin 15.3 g/dL (13.5-17.5); Lymphocytes Absolute Auto 1600 /uL (1100-4500); Lymphocytes Percent Auto 19.6 % (25-40); Mean Corpuscular HGB Conc 34.1 % (30-36); Mean Corpuscular Volume 84.9 fL (80-100); Monocytes Absolute Auto 700 /uL (0-900); Monocytes Percent Auto 7.9 % (3-14); Neutrophils Absolute Auto 5800 /uL (1500-7000); Neutrophils Percent Auto 69.6 % (50-75); Platelet Count 229 X10^3/uL (150-400); Red Blood Cell Count 5.29 X10^6/uL (4.5-5.9); Red Cell Distribution Width 13.7 % (11.6-14.8); White Blood Cell Count 8.3 X10^3/uL (4.5-11.0)
[2023-11-08] MEDS: NITROGLYCERIN 0.4 MG SL TAB SL ×3 (06:45→06:56)
[2023-11-08] MEDS: ASPIRIN 81 MG CHEW TAB 324 MG PO (06:45)
[2023-11-08 07:04] LABS: Alanine Aminotransferase 24 IU/L (<50); Albumin 4.2 g/dL (3.5-5.0); Albumin Globulin Ratio 1.3 (1.0-2.8); Alkaline Phosphatase 60 U/L (38-126); Aspartate Aminotransferase 26 IU/L (17-59); Bilirubin Total 0.8 mg/dL (0.2-1.3); Blood Urea Nitrogen 24 mg/dL (9-20); Calcium 9.7 mg/dL (8.4-10.2); Carbon Dioxide 24 mmol/L (22-32); Chloride 106 mmol/L (98-107); Creatine Kinase 53 U/L (55-170); Estimated Glomerular Filt Rate > 60 mL/min (>60); Globulin 3.3 g/dL (1.7-4.1); Glucose 101 mg/dL (80-110); HEMOLYSIS < 15 (0-50); Lipase 363 U/L (23-300); Potassium 4.3 mmol/L (3.4-5.1); Sodium 138 mmol/L (137-145); Total Protein 7.5 g/dL (6.3-8.2)
--- NOTE | 2023-11-08 07:14 | PC.NURSE ---
pt states no change in feeling in chest
[2023-11-08 07:16] LABS: Troponin I < 0.012 ng/mL (0.01-0.034)
[2023-11-08 09:05] LABS: Troponin I 0.028 ng/mL (0.01-0.034)
== END 2023-11-08 10:18 | disposition home or self-care (01) ==
PROVIDERS: Emergency Medicine; Emergency Provider Emergency Medicine; PCP Family Medicine
DX: R07.9 Chest pain, unspecified (principal); I10 Essential (primary) hypertension
CPT/HCPCS: 71045; 80053; 82550; 83690; 84484; 85025; 93005; 93010; 99283; 99284

== ENCOUNTER 2023-12-23 06:45 | Emergency (ER) | payer MEDICARE, OTHER, SELFPAY ==
[2021-08-09 12:15] VITALS: BMI 27.5
[2023-12-23] VITALS (9 sets, daily range): BP systolic 150–175; BP diastolic 55–81; PULSE 60–76; RESP 18–96; TEMP 36.2; O2SAT 94–97; BMI 28.3
--- NOTE | 2023-12-23 06:49 | ED_ITS ---
HPI - General Adult <Christine Lowe MD - Last Filed: 12/24/23 04:59> General Chief complaint: Fall Stated complaint: L side hip/lower back pain, fall Time Seen by Provider: 12/23/23 06:49 Related Data Home Medications Medication Instructions Recorded Confirmed aspirin 81 mg tablet,delayed 81 mg PO BID 02/03/19 02/11/23 release atorvastatin 10 mg tablet 20 mg BEDTIME 11/08/23 metoprolol succinate 50 mg 50 mg PO DAILY 11/08/23 11/08/23 tablet,extended release 24 hr Previous Rx's Medication Instructions Recorded lidocaine 5 % topical patch 1 patch topical DAILY pain #30 ea 12/23/23 Allergies Allergy/AdvReac Type Severity Reaction Status Date / Time tetanus and diphtheria Allergy Mild ILL Verified 02/11/23 14:55 toxoids [tetanus & diphtheria toxoids] Opioids - Morphine Analogues AdvReac Intermediate Nausea Verified 02/11/23 14:55 <Benoit Tarango MD - Last Filed: 12/23/23 10:28> History of Present Illness HPI narrative: 78yo M with history of CAD, long COVID, chronic cough, memory problem, gout, enlarged prostate, AC joint separation, hypertension, hyperlipidemia, vertigo, torticollis presents after fall at home with left hip and lower back pain. The patient notes a fall in the last few days, though has some difficulty providing full history. He denies head injury, loss of consciousness, or blood thinner use. It sounds most likely that he tripped, without syncope. He and have some difficulty providing full history, but states she was able to convince him to come in today for assessment. Patient states his stool pain is his lower back and hips, without focal numbness or weakness, perineal sensory changes, incontinence, difficulty walking, fevers, chills, shortness breath, chest or back or abdominal pain, head pain, neck pain, visual or hearing changes, or any other new concerns. Note Dr. Lowe kindly evaluated this patient at the end of her shift prior to my arrival, but I took over and am proceeding with care. We discussed XR acquisition. Review of Systems <Benoit Tarango MD - Last Filed: 12/23/23 10:28> Review of Systems Narrative: Constitutional: no fever, no chills Eyes: no visual disturbance, no discharge Ears, Nose, Mouth, Throat: no rhinorrhea, no sore throat Cardiovascular: no chest pain, no palpitations Respiratory: no cough, no shortness of breath Gastrointestinal: no abdominal pain, no vomiting, no diarrhea Genitourinary: no dysuria, no hematuria Musculoskeletal: no back pain, no neck stiffness Skin: no rash, no wound Neurological: no focal weakness, no focal numbness Patient History <Christine Lowe MD - Last Filed: 12/24/23 04:59> Medical History Chest pain at rest Hemangioma Belching Normocytic anemia Lymphocytosis Memory problem Peripheral neuropathy Night sweats Grief Back pain Thoracic spine pain Shoulder pain Enlarged prostate Easy bruisability Arthritis Vision disorder Chronic cough (~2004) Asthma Seasonal allergies Measles Malaria (~2007) Chicken pox Hearing loss (~1993) Pulmonary hypertension (~2002) Coronary artery disease (~2002) Surgical History S/P excision of lipoma Anesthesia History of surgery (~1971) Family History Father Heart disease Grandmother Stomach cancer Mother Dementia Social History marital status: household members: spouse occupational status: previously employed Smoking Status: Former smoker alcohol intake: current substance use type: does not use Smoking Status: Former smoker alcohol intake frequency: holidays/special occasions only Substance Use Type: does not use Exam <Christine Lowe MD - Last Filed: 12/24/23 04:59> Initial Vital Signs Initial Vital Signs: Vital Signs Pulse Rate 76 12/23/23 06:51 Pulse Oximetry 97 12/23/23 06:51 <Benoit Tarango MD - Last Filed: 12/23/23 10:28> Narrative Exam Narrative: Const: no acute distress, non toxic appearing; calm, conversant, pleasant Head: no lacerations or contusions. No maxillary tenderness or midface instabil ity. No nasal septal hematoma. No sharma sign or raccoon eyes. No evidence of intraoral trauma. Mucous membranes moist. Eyes: PERRLA, EOMI Neck: supple, non-tender Resp: no respiratory distress, clear to auscultation bilaterally Card: regular rate and rhythm, no murmurs; no chest wall or clavicular tenderness Abd: non tender diffusely, no rigidity or rebound or guarding Back: no T spine tenderness, no CVA tenderness bilaterally; milde L spine tenderness without step offs or deformities Extrem: no pelvic tenderness or instability; no visual or palpable evidence of trauma to extremities; extremities with 2+ distal pulses, normal range of motion, intact strength and sensation, no deformities, soft compartments. No snuffbox tenderness bilaterally. Patient ambulatory without difficulty. Neuro: ANOx4, musician instrumental grossly intact, grossly intact sensation and strength all extremities Skin: no other lacerations; no rash, warm and dry Initial Vital Signs Initial Vital Signs: Vital Signs Pulse Rate 76 12/23/23 06:51 Pulse Oximetry 97 12/23/23 06:51 Course <Christine Lowe MD - Last Filed: 12/24/23 04:59> Orders Ordered: Discontinued Medications Acetaminophen (Acetaminophen 325 Mg Tablet) 975 mg PO NOW ONE Stop: 12/23/23 07:19 Last Admin: 12/23/23 07:28 Dose: 975 mg Documented By: BRITTANY Lidocaine (Lidocaine 5% Patch) 1 each TOP NOW ONE Stop: 12/23/23 07:19 Last Admin: 12/23/23 07:28 Dose: 1 each Documented By: BRITTANY Vital Signs Vital signs: Vital Signs - 8 hr 12/23/23 06:51 12/23/23 06:53 12/23/23 06:53 Temperature Pulse Rate 76 72 Respiratory Rate Blood Pressure 169/77 H Pulse Oximetry 97 97 Oxygen Delivery Method 12/23/23 06:55 12/23/23 07:00 12/23/23 07:00 Temperature 97.1 F L Pulse Rate 72 69 Respiratory Rate 18 Blood Pressure 169/77 H 161/55 H Pulse Oximetry 97 95 Oxygen Delivery Method Room Air 12/23/23 07:30 12/23/23 07:30 12/23/23 08:00 Temperature Pulse Rate 69 64 Respiratory Rate Blood Pressure 156/81 H Pulse Oximetry 96 96 Oxygen Delivery Method 12/23/23 08:30 12/23/23 09:04 12/23/23 09:05 Temperature Pulse Rate 63 61 60 Respiratory Rate 18 96 H 18 Blood Pressure 150/81 H 175/70 H Pulse Oximetry 94 96 Oxygen Delivery Method Room Air <Benoit Tarango MD - Last Filed: 12/23/23 10:28> Course Course Narrative: This patient presents with reported ground level mechanical fall with reassuring primary survey, secondary survey with mild L-spine tenderness, without additional evidence of injury on exam. I am obtaining L-spine and pelvis x-rays to assess for fractures, giving lidocaine patch and Tylenol and will reassess. Radiology review of imaging below, which I agree with on my independent review: Lumbar XR: FINDINGS: Bones: Transitional spinal anatomy is noted. For the purposes of this report, the lumbosacral transitional element is designated as S1, in keeping with the numbering system used on the radiographs from 06/08/2021. 2 mm grade 1 retrolisthesis at L2-3. 3 mm grade 1 retrolisthesis at L3-4. No acute vertebral body compression fractures. No suspicious bony lesions. Multilevel disc space narrowing degenerative endplate changes seen throughout the lumbar spine. There is multilevel facet hypertrophy. Soft tissues: Overlying bowel gas pattern is normal. Aortic atherosclerotic calcifications are present. IMPRESSION: 1. No acute vertebral compression fracture. 2. Moderate multilevel spondylosis and degenerative spondylolisthesis. Approved by: Omar Smyth M.D. on 12/23/2023 at 8:15 Pelvis/L hip: FINDINGS: Bones: No fractures or dislocations. Pelvic ring appears intact. No suspic ious bony lesions. Mild left hip degenerative change. Soft tissues: The visualized bowel gas pattern is normal. No suspicious soft tissue calcifications. IMPRESSION: Mild left hip degenerative change. No evidence acute bony abnormality. If clinical suspicion and/or symptoms persist, further assessment with repeat plain films, or advanced imaging (e.g., CT, MRI, or bone scan) may be helpful for further assessment. Dictated by: Дмитрий Bello M.D. on 12/23/2023 at 8:35 Blood pressure is elevated here, however without clinical evidence of hypertensive emergency. Discussed with patient for follow-up. He has no head or neck or chest or abdominal or flank pain, with benign abdomen. He has isolated low lumbar tenderness that is mild. Patient feeling improved with treatment. I reassessed him and he continues to note no other new concerns and continues to demonstrate no evidence of other injury on repeat exam. No evidence of head or neck injury. He is ambulatory. He appears stable for discharge with follow up. I prescribed lidocaine patches. Patient and spouse are comfortable with plan, follow up, return precautions. Spouse without any other concerns as well. Repeat exam and vital signs reassuring. Questions answered. Plan reviewed. Patient discharged in stable condition. Orders Ordered: Discontinued Medications Acetaminophen (Acetaminophen 325 Mg Tablet) 975 mg PO NOW ONE Stop: 12/23/23 07:19 Last Admin: 12/23/23 07:28 Dose: 975 mg Documented By: BRITTANY Lidocaine (Lidocaine 5% Patch) 1 each TOP NOW ONE Stop: 12/23/23 07:19 Last Admin: 12/23/23 07:28 Dose: 1 each Documented By: BRITTANY Vital Signs Vital signs: Vital Signs - 8 hr 12/23/23 06:51 12/23/23 06:53 12/23/23 06:53 Temperature Pulse Rate 76 72 Respiratory Rate Blood Pressure 169/77 H Pulse Oximetry 97 97 Oxygen Delivery Method 12/23/23 06:55 12/23/23 07:00 12/23/23 07:00 Temperature 97.1 F L Pulse Rate 72 69 Respiratory Rate 18 Blood Pressure 169/77 H 161/55 H Pulse Oximetry 97 95 Oxygen Delivery Method Room Air 12/23/23 07:30 12/23/23 07:30 12/23/23 08:00 Temperature Pulse Rate 69 64 Respiratory Rate Blood Pressure 156/81 H Pulse Oximetry 96 96 Oxygen Delivery Method 12/23/23 08:30 12/23/23 09:04 12/23/23 09:05 Temperature Pulse Rate 63 61 60 Respiratory Rate 18 96 H 18 Blood Pressure 150/81 H 175/70 H Pulse Oximetry 94 96 Oxygen Delivery Method Room Air Discharge Plan Departure Patient Disposition: Home Clinical Impression: Fall Instructions: How to Prevent Falls Activity Restrictions/Additional Instructions: It was a pleasure taking care of you today. It is important to fully read and understand the below. Please ask us if you have any questions. We obtained x-rays of your low back, pelvis and hips. We do not see any clear injuries. However, please be reassessed by your primary doctor within 3 days. Discuss further treatment and care. Also discussed getting a fall risk assessment with physical therapy to reduce your risk of future falls. You can try Tylenol and lidocaine patches for pain. I am prescribing you lidocaine patches. No tests or assessments are perfect, and your condition could foreign exchange dealer time. If your symptoms change or worsen, it is very important you immediately seek medical care. If you have any new or worsening pain, shortness of breath, fever, vomiting, confusion, numbness, weakness, visual or hearing changes, trouble walking or talking or eating, or anything else that concerns you, please immediately seek medical care. If you have been prescribed any medications: please read the drug package inserts on how to properly use the medication and any potential side effects. If you had labs (blood tests) or imaging (CT scan or x-rays) done during your visit: please follow up on the results of these with your primary care doctor, as discussed. In addition, please know the results we received today may be preliminary. Our usual practice is to follow up on tests within a few days of a patient's discharge from the Emergency Department and notify you of any changes. These may lead to changes to your treatment plan. However, the best way to obtain and interpret these test results is through your Primary Care Provider. If you need to update your contact information, please stop by the bowling or skating front desk clerk and alert the Registration personnel before you leave the Emergency Department. Thank you for the opportunity to participate in your healthcare. We are always here and happy to see you in the future. --- PLEASE TAKE THE ATTACHED IMAGING TO YOUR DOCTORS: Lumbar XR: FINDINGS: Bones: Transitional spinal anatomy is noted. For the purposes of this report, the lumbosacral transitional element is designated as S1, in keeping with the numbering system used on the radiographs from 06/08/2021. 2 mm grade 1 retrolisthesis at L2-3. 3 mm grade 1 retrolisthesis at L3-4. No acute vertebral body compression fractures. No suspicious bony lesions. Multilevel disc space narrowing degenerative endplate changes seen throughout the lumbar spine. There is multilevel facet hypertrophy. Soft tissues: Overlying bowel gas pattern is normal. Aortic atherosclerotic calcifications are present. IMPRESSION: 1. No acute vertebral compression fracture. 2. Moderate multilevel spondylosis and degenerative spondylolisthesis. Approved by: Omar Smyth M.D. on 12/23/2023 at 8:15 Pelvis/L hip: FINDINGS: Bones: No fractures or dislocations. Pelvic ring appears intact. No suspicious bony lesions. Mild left hip degenerative change. Soft tissues: The visualized bowel gas pattern is normal. No suspicious soft tissue calcifications. IMPRESSION: Mild left hip degenerative change. No evidence acute bony abnormality. If clinical suspicion and/or symptoms persist, further assessment with repeat plain films, or advanced imaging (e.g., CT, MRI, or bone scan) may be helpful for further assessment. Dictated by: Дмитрий Bello M.D. on 12/23/2023 at 8:35 Prescriptions: New lidocaine 5 % adhesive patch,medicated 1 patch topical DAILY Qty: 30 0RF Rx Instructions: leave on most painful area for up to 12 hrs No Action aspirin 81 mg Tablet,Delayed Release (Dr/Ec) 81 mg PO BID metoprolol succinate 50 mg tablet extended release 24 hr 50 mg PO DAILY atorvastatin 10 mg tablet 20 mg BEDTIME Referrals: Jas Robles DO [Primary Care Provider] - Stand Alone Forms: Patient Portal/API
--- NOTE | 2023-12-23 07:14 | DI.RAD.S_ITS ---
PROCEDURE: XR LUMBAR SPINE 2-3V INDICATIONS: fall TECHNIQUE: 3 views of the lumbar spine were acquired. COMPARISON: [facility], , XR LUMBAR SPINE 2-3V, 06/08/2021, 12:07. FINDINGS: Bones: Transitional spinal anatomy is noted. For the purposes of this report, the lumbosacral transitional element is designated as S1, in keeping with the numbering system used on the radiographs from 06/08/2021. 2 mm grade 1 retrolisthesis at L2-3. 3 mm grade 1 retrolisthesis at L3-4. No acute vertebral body compression fractures. No suspicious bony lesions. Multilevel disc space narrowing degenerative endplate changes seen throughout the lumbar spine. There is multilevel facet hypertrophy. Soft tissues: Overlying bowel gas pattern is normal. Aortic atherosclerotic calcifications are present. IMPRESSION: 1. No acute vertebral compression fracture. 2. Moderate multilevel spondylosis and degenerative spondylolisthesis. Approved by: Omar Smyth M.D. on 12/23/2023 at 8:15
--- NOTE | 2023-12-23 07:14 | DI.RAD.S_ITS ---
PROCEDURE: XR HIP W PEL IF DONE LT 2V INDICATIONS: fall TECHNIQUE: AP pelvis with lateral view(s) of the the left hip(s). COMPARISON: None. FINDINGS: Bones: No fractures or dislocations. Pelvic ring appears intact. No suspicious bony lesions. Mild left hip degenerative change. Soft tissues: The visualized bowel gas pattern is normal. No suspicious soft tissue calcifications. IMPRESSION: Mild left hip degenerative change. No evidence acute bony abnormality. If clinical suspicion and/or symptoms persist, further assessment with repeat plain films, or advanced imaging (e.g., CT, MRI, or bone scan) may be helpful for further assessment. Dictated by: Дмитрий Bello M.D. on 12/23/2023 at 8:35 Approved by: Дмитрий Bello M.D. on 12/23/2023 at 8:36
[2023-12-23] MEDS: LIDOCAINE 5% PATCH 1 EACH TOP (07:28)
[2023-12-23] MEDS: ACETAMINOPHEN 325 MG TABLET 975 MG PO (07:28)
== END 2023-12-23 09:05 | disposition home or self-care (01) ==
PROVIDERS: Emergency Provider Emergency Medicine; PCP Family Medicine
DX: M54.50 Low back pain, unspecified (principal); M25.552 Pain in left hip; W18.30XA Fall on same level, unspecified, initial encounter
CPT/HCPCS: 72100; 73502; 99283

== ENCOUNTER 2024-01-26 14:59 | Observation (INO) | payer MEDICARE, OTHER, SELFPAY ==
[2021-08-09 12:15] VITALS: BMI 27.5
[2024-01-26] VITALS (14 sets, daily range): BP systolic 154–162; BP diastolic 79–83; PULSE 89–105; RESP 18; TEMP 37; O2SAT 94–97; BMI 28.7
--- NOTE | 2024-01-26 15:44 | DI.US.S_ITS ---
PROCEDURE: US PERIP VENOUS LOW EXTREM LT INDICATIONS: r/o DVT TECHNIQUE: Real-time imaging, as well as color and pulse Doppler interrogation, were performed of the lower extremity deep veins from the inguinal ligament to the popliteal fossa, with documentation of the visualized calf veins. COMPARISON: [facility], , [facility] VENOUS LOW EXTREM LT, 10/09/2020, 5:30. FINDINGS: The common femoral, femoral, popliteal, and the visualized calf veins are normally compressible, and free of intraluminal thrombus. Color and pulse Doppler demonstrate normal phasic intraluminal flow. There is normal augmentation response to distal compression maneuver. IMPRESSION: No findings of lower extremity deep venous thrombosis. Dictated by: Pete Duran M.D. on 01/26/2024 at 15:27 Approved by: Pete Duran M.D. on 01/26/2024 at 15:34
[2024-01-26 16:12] LABS: Add Manual Diff / Slide Review NO; Basophils Absolute Auto 200 /uL (0-100); Basophils Percent Auto 1.3 % (0-2); Eosinophils Absolute Auto 100 /uL (0-450); Eosinophils Percent Auto 0.7 % (2-4); Hematocrit 46.1 % (41-53); Hemoglobin 15.6 g/dL (13.5-17.5); Lymphocytes Absolute Auto 1500 /uL (1100-4500); Lymphocytes Percent Auto 11.1 % (25-40); Mean Corpuscular HGB Conc 33.9 % (30-36); Mean Corpuscular Hemoglobin 29.5 PG (26-34); Mean Corpuscular Volume 87.3 fL (80-100); Monocytes Absolute Auto 1200 /uL (0-900); Monocytes Percent Auto 8.8 % (3-14); Neutrophils Absolute Auto 10300 /uL (1500-7000); Neutrophils Percent Auto 78.1 % (50-75); Platelet Count 268 X10^3/uL (150-400); Red Blood Cell Count 5.29 X10^6/uL (4.5-5.9); Red Cell Distribution Width 14.4 % (11.6-14.8); White Blood Cell Count 13.2 X10^3/uL (4.5-11.0)
[2024-01-26 16:50] LABS: BUN Creatinine Ratio 24.7 (6-22); Blood Urea Nitrogen 20 mg/dL (9-20); Calcium 9.7 mg/dL (8.4-10.2); Carbon Dioxide 28 mmol/L (22-32); Chloride 100 mmol/L (98-107); Estimated Glomerular Filt Rate > 60 mL/min (>60); Glucose 108 mg/dL (80-110); HEMOLYSIS < 15 (0-50); Potassium 3.9 mmol/L (3.4-5.1); Sodium 135 mmol/L (137-145)
--- NOTE | 2024-01-26 19:11 | DI.RAD.S_ITS ---
PROCEDURE: XR ANKLE LT MIN 3V INDICATIONS: pain and swelling TECHNIQUE: 3 views of the ankle were acquired. COMPARISON: [facility], CR, XR ANKLE RT MIN 3V, 09/26/2022, 9:46. FINDINGS: Bones: No acute fractures. Mild degeneration at the tibiotalar articulation. There is mild dystrophic calcification along the medial aspect of the talonavicular articulation and at the distal fibula. The ankle mortise remains normally aligned. Soft tissues: There is moderate periarticular skin thickening. No significant tibiotalar joint effusion. Trace calcific tendinosis of the Achilles tendon. IMPRESSION: No acute bony abnormality or significant effusion. Degenerative changes and chronic Achilles tendinopathy. Dictated by: Sobia Arrington M.D. on 01/26/2024 at 20:09 Approved by: Sobia Arrington M.D. on 01/26/2024 at 20:12
--- NOTE | 2024-01-26 19:11 | DI.RAD.S_ITS ---
PROCEDURE: XR KNEE LT 3V INDICATIONS: pain and swelling TECHNIQUE: 3 views of the knee were acquired. COMPARISON: [facility], CR, XR KNEE LT 3V, 10/09/2020, 6:32. FINDINGS: Bones: No acute fracture or malalignment. There is mild tricompartment joint space loss. No suspicious bone lesion. Soft tissues: Moderate size joint effusion. Prominent tricompartment chondrocalcinosis. Mild peripheral vascular calcification. IMPRESSION: Chondrocalcinosis suggesting pseudogout/CPPD, hemochromatosis, hyperparathyroidism, other arthritis. Moderate-sized joint effusion, increased in size compared to the prior radiograph. Dictated by: Sobia Arrington M.D. on 01/26/2024 at 20:13 Approved by: Sobia Arrington M.D. on 01/26/2024 at 20:14
--- NOTE | 2024-01-26 19:11 | DI.RAD.S_ITS ---
PROCEDURE: XR FOOT LT MIN 3V INDICATIONS: pain and swelling TECHNIQUE: 3 views of the foot were acquired. COMPARISON: [facility], CR, XR FOOT RT MIN 3V, 09/26/2022, 9:48. FINDINGS: Bones: No fractures or dislocations. No suspicious bony lesions. Soft tissues: No tibiotalar joint effusion. Achilles tendon appears normal. Mild diffuse soft tissue thickening. IMPRESSION: No acute bony abnormality. Mild diffuse soft tissue thickening suggesting cellulitis. No soft tissue gas. Dictated by: Sobia Arrington M.D. on 01/26/2024 at 20:12 Approved by: Sobia Arrington M.D. on 01/26/2024 at 20:13
--- NOTE | 2024-01-26 19:12 | ED_ITS ---
HPI - Extremity Problem General Chief complaint: Extremity Problem,Nontraumatic Stated complaint: lt leg swelling, pain Time Seen by Provider: 01/26/24 19:06 Source: patient and family Mode of arrival: Wheelchair History of Present Illness HPI Narrative: Patient is an 78-year-old male. Somewhat difficult to get an exact HPI but he is here for evaluation of left knee pain and swelling and left ankle/foot pain and swelling. It appears this has been going on for the past couple days. Appears to be atraumatic however he did fall and land on his left knee several weeks ago. He has an abrasion on the front of the knee. Has difficult time walking in his leg because of the pain. Specifically in his ankle and foot. Can not put pressure on it. Not on blood thinners. Denies fevers. Review his medical history does show that he has a history of gout. No fevers. Other joint pain or swelling. A DVT ultrasound was ordered prior to my evaluation in his negative. Related Data Home Medications Medication Instructions Recorded Confirmed aspirin 81 mg tablet,delayed 81 mg PO BID 02/03/19 12/26/23 release atorvastatin 10 mg tablet 20 mg BEDTIME 11/08/23 12/26/23 metoprolol succinate 50 mg 50 mg PO DAILY 11/08/23 12/26/23 tablet,extended release 24 hr Previous Rx's Medication Instructions Recorded lidocaine 5 % topical patch 1 patch topical DAILY pain #30 ea 12/23/23 Allergies Allergy/AdvReac Type Severity Reaction Status Date / Time tetanus and diphtheria Allergy Mild ILL Verified 12/26/23 13:15 toxoids [tetanus & diphtheria toxoids] Opioids - Morphine Analogues AdvReac Intermediate Nausea Verified 12/26/23 13:15 Review of Systems Constitutional Constitutional: Reports system reviewed and no additional complaints, except as documented Musculoskeletal Musculoskeletal: Reports system reviewed and no additional complaints, except as documented Integumentary/Breasts Skin/Breast: Reports system reviewed and no additional complaints, except as documented Neurologic Neurologic: Reports system reviewed and no additional complaints, except as documented Hematologic/Lymphatic On Anticoagulants: No Patient History Medical History Chest pain at rest Hemangioma Belching Normocytic anemia Lymphocytosis Memory problem Peripheral neuropathy Night sweats Grief Back pain Thoracic spine pain Shoulder pain Enlarged prostate Easy bruisability Arthritis Vision disorder Chronic cough (~2004) Asthma Seasonal allergies Measles Malaria (~2007) Chicken pox Hearing loss (~1993) Pulmonary hypertension (~2002) Coronary artery disease (~2002) Surgical History S/P excision of lipoma Anesthesia History of surgery (~1971) Family History Father Heart disease Grandmother Stomach cancer Mother Dementia Social History marital status: household members: spouse occupational status: previously employed Smoking Status: Former smoker alcohol intake: current substance use type: does not use Smoking Status: Former smoker alcohol intake frequency: holidays/special occasions only Substance Use Type: does not use Exam Initial Vital Signs Initial Vital Signs: Vital Signs Temperature 98.6 F 01/26/24 15:33 Pulse Rate 100 H 01/26/24 15:33 Respiratory Rate 18 01/26/24 15:33 Blood Pressure 154/83 H 01/26/24 15:33 Pulse Oximetry 97 01/26/24 15:33 Oxygen Delivery Method Room Air 01/26/24 15:33 Const General: cooperative and comfortable Resp Effort & Inspection: normal respiratory effort Cardio Rate: regular rate Skin Other: Minimal redness around the left ankle/foot however no pustules or vesicles. The skin is warm to the touch around his left knee and left ankle and left foot. He has have a superficial abrasion that appears well over the anterior aspect of the left patellar tendon. Neuro Sensory Exam: no sensory deficits noted Extrem Other: Swelling with an effusion to the left knee. Has difficult time bending his knee because of the pressure in the discomfort. Has swelling throughout his left ankle and left foot. He can not flex and extend his left ankle secondary to pain. Procedures Joint Aspiration Joint Asp./Inject. 1: Time Out Performed: Yes Side of body: left Joint Aspirated: knee Ultrasound Guidance: No Skin Prep: Povidone-Iodine1% Local Anesthetic: lidocaine 1% and with epi Amount of anesthesia used (mL): 4 Needle Size Used: 18G Fluid Obtained: turbid Total fluid obtained (mL): 15 Patient Tolerated Procedure: Well Complications: none Course Orders Ordered: ED Orders 01/26/24 15:44 US periph venous low extrem lt Stat 01/26/24 15:55 Basic Metabolic Panel Stat CRP [C-Reactive Protein Quant] Stat Complete Blood Count AUTO DIFF Stat ESR [Erythrocyte Sedimentation Rate] Stat Uric Acid Stat 01/26/24 19:11 XR ankle LT min 3V Stat XR foot LT min 3V Stat XR knee LT 3V Stat 01/26/24 21:02 Body Fluid Culture Stat Cell Count w Diff Body Fluid Stat Crystals Body Fluid - IN-HOUSE Stat 01/26/24 22:53 Consult to Orthopedic Surgery Stat Acetaminophen (Acetaminophen 325 Mg Tablet) 650 mg PO Q6H PRN PRN Reason: Fever/Mild Pain (1-3) Ketorolac Tromethamine (Ketorolac 30 Mg/Ml Vial) 30 mg IV Q6H PRN PRN Reason: pain Stop: 01/31/24 23:56 Metoprolol Succinate (Metoprolol Er 50 Mg Tablet) 50 mg PO DAILY FARRAH Naloxone HCl (Naloxone 0.4 Mg/Ml Vial) 0.2 mg IV Q2MIN PRN PRN Reason: Opiate Reversal Discontinued Medications Ketorolac Tromethamine (Ketorolac 30 Mg/Ml Vial) 30 mg IV NOW ONE Stop: 01/26/24 22:55 Last Admin: 01/26/24 22:59 Dose: 30 mg Documented By: ELIZABETH Vital Signs Vital signs: Vital Signs - 8 hr 01/26/24 18:38 01/26/24 18:39 01/26/24 18:39 Pulse Rate 100 H Blood Pressure 162/80 H Pulse Oximetry 95 95 01/26/24 19:00 01/26/24 19:30 01/26/24 20:00 Pulse Rate 89 105 H 89 Blood Pressure Pulse Oximetry 94 96 95 01/26/24 20:30 01/26/24 21:00 01/26/24 21:30 Pulse Rate 93 H 91 H 90 Blood Pressure Pulse Oximetry 94 96 95 01/26/24 22:00 01/26/24 22:30 01/26/24 22:31 Pulse Rate 90 94 H 97 H Blood Pressure Pulse Oximetry 95 94 94 01/26/24 22:31 Pulse Rate Blood Pressure 154/79 H Pulse Oximetry MDM - Extremity (Nontraumatic) Lab Data 01/26/24 15:55 01/26/24 15:55 Labs: Lab Results 01/26/24 01/26/24 Range/Units 15:55 21:02 WBC 13.2 H (4.5-11.0) X10^3/uL RBC 5.29 (4.5-5.9) X10^6/uL Hgb 15.6 (13.5-17.5) g/dL Hct 46.1 (41-53) % MCV 87.3 (80-100) fL MCH 29.5 (26-34) PG MCHC 33.9 (30-36) % RDW 14.4 (11.6-14.8) % Plt Count 268 (150-400) X10^3/uL Neut % (Auto) 78.1 H (50-75) % Lymph % (Auto) 11.1 L (25-40) % [place] % (Auto) 8.8 (3-14) % Eos % (Auto) 0.7 L (2-4) % Baso % (Auto) 1.3 (0-2) % Neut # (Auto) 41282 H (6598-8194) /uL Lymph # (Auto) 1500 (0654-1680) /uL [place] # (Auto) 1200 H (0-900) /uL Eos # (Auto) 100 (0-450) /uL Baso # (Auto) 200 H (0-100) /uL ESR 29 H (0-15) MM/HR Sodium 135 L (137-145) mmol/L Potassium 3.9 (3.4-5.1) mmol/L Chloride 100 (98-107) mmol/L Carbon Dioxide 28 (22-32) mmol/L BUN 20 (9-20) mg/dL Creatinine 0.81 (0.66-1.25) mg/dL Estimated GFR > 60 (>60) mL/min BUN/Creatinine Ratio 24.7 H (6-22) Glucose 108 (80-110) mg/dL Uric Acid 5.8 (3.5-8.5) mg/dL Calcium 9.7 (8.4-10.2) mg/dL C-Reactive Protein 14.4 H (<1.0) mg/dL Fluid Color Yellow Fluid Appearance Cloudy Fluid RBC [id number] /uL Fld Tot Nucleated Cell 79666 /uL Fluid Polynuclear WBCs 89 % Fluid Mononuclear WBCs 11 % Fluid Eosinophils Not Reportable Fluid Other Cells Not Reportable Fluid Crystals None present (NONE) Body Fluid Clot No clots present Imaging Data US - DVT: Radiologist's Impression: PROCEDURE: US PERIPH VENOUS LOW EXTREM LT INDICATIONS: r/o DVT TECHNIQUE: Real-time imaging, as well as color and pulse Doppler interrogation, were performed of the lower extremity deep veins from the inguinal ligament to the popliteal fossa, with documentation of the visualized calf veins. COMPARISON: [facility], , US PERIPH VENOUS LOW EXTREM LT, 10/09/2020, 5:30. FINDINGS: The common femoral, femoral, popliteal, and the visualized calf veins are normally compressible, and free of intraluminal thrombus. Color and pulse Doppler demonstrate normal phasic intraluminal flow. There is normal augmentation response to distal compression maneuver. IMPRESSION: No findings of lower extremity deep venous thrombosis. Extremity x-ray #1: Radiologist's Impression: PROCEDURE: XR ANKLE LT MIN 3V INDICATIONS: pain and swelling TECHNIQUE: 3 views of the ankle were acquired. COMPARISON: [facility], , XR ANKLE RT MIN 3V, 09/26/2022, 9:46. FINDINGS: Bones: No acute fractures. Mild degeneration at the tibiotalar articulation. There is mild dystrophic calcification along the medial aspect of the talonavicular articulation and at the distal fibula. The ankle mortise remains normally aligned. Soft tissues: There is moderate periarticular skin thickening. No significant tibiotalar joint effusion. Trace calcific tendinosis of the Achilles tendon. IMPRESSION: No acute bony abnormality or significant effusion. Degenerative changes and chronic Achilles tendinopathy. Extremity x-ray #2: Radiologist's Impression: PROCEDURE: XR FOOT LT MIN 3V INDICATIONS: pain and swelling TECHNIQUE: 3 views of the foot were acquired. COMPARISON: [facility], , XR FOOT RT MIN 3V, 09/26/2022, 9:48. FINDINGS: Bones: No fractures or dislocations. No suspicious bony lesions. Soft tissues: No tibiotalar joint effusion. Achilles tendon appears normal. Mild diffuse soft tissue thickening. IMPRESSION: No acute bony abnormality. Mild diffuse soft tissue thickening suggesting cellulitis. No soft tissue gas. Extremity x-ray #3: Radiologist's Impression: PROCEDURE: XR KNEE LT 3V INDICATIONS: pain and swelling TECHNIQUE: 3 views of the knee were acquired. COMPARISON: [facility], , XR KNEE LT 3V, 10/09/2020, 6:32. FINDINGS: Bones: No acute fracture or malalignment. There is mild tricompartment joint space loss. No suspicious bone lesion. Soft tissues: Moderate size joint effusion. Prominent tricompartment chondrocalcinosis. Mild peripheral vascular calcification. IMPRESSION: Chondrocalcinosis suggesting pseudogout/CPPD, hemochromatosis, hyperparathyroidism, other arthritis. Moderate-sized joint effusion, increased in size compared to the prior radiograph. MDM Narrative Medical decision making narrative: He was afebrile. DVT ultrasound is negative. He does have discomfort to the left knee and left ankle/foot. X-ray show no fractures. This appears to be nontraumatic arthritis. His uric acid is negative. No Crystal's noted on the synovial fluid. He does have an elevation in his ESR and CRP. Aspiration was performed. No organisms noted on the Gram stain. Culture is pending. Has just over 35,000 nucleated cells on the aspirate. I did discuss the case with Dr. Cotton on-call for Orthopedic surgery. Who recommended treating with anti- inflammatories for now and if his symptoms worsen or the Gram stain was positive that he would be started on antibiotics. Given the location of the discomfort in his ankle in his knee who will admit for observation during the time while we are waiting for the culture to result. Discussed the case with Dr. An hospitalist on-call who will admit. Discussed the need for admission with the family who expressed understanding and agreement with plan. Discharge Plan Departure Patient Disposition: Admitted as Observation Clinical Impression: Arthritis of knee, left, Arthritis of ankle, left Admit Date/Time: 01/26/24 23:29 Admit Provider: Nahid Baxter
[2024-01-26 19:32] LABS: Uric Acid 5.8 mg/dL (3.5-8.5)
[2024-01-26 19:47] LABS: C-Reactive Protein Quant 14.4 mg/dL (<1.0)
[2024-01-26 20:03] LABS: Erythrocyte Sedimentation Rate 29 MM/HR (0-15)
[2024-01-26 21:32] LABS: Crystals Body Fluid - IN-HOUSE NONE Present
[2024-01-26 21:57] LABS: Body Fluid Tot Nucleated Cells 35066 /uL
[2024-01-26 22:00] LABS: Body Fluid Appearance CLOUDY; Body Fluid Clotted? NO CLOTS PRESENT; Body Fluid Color YELLOW
[2024-01-26 22:10] LABS: Mononuclear WBC Body Fluid 11 %; Polynuclear WBC Body Fluid 89 %
[2024-01-26] MEDS: KETOROLAC 30 MG/ML VIAL IV (22:59)
--- NOTE | 2024-01-26 23:43 | PM.CN ---
History of Present Illness Consult details Date Patient Seen: 01/27/24 Time Patient Seen: 07:38 Chief complaint: lt leg swelling, pain Reason for consult: Knee, ankle effusion left Requesting provider: Casey Orellana Narrative: The patient is an 78-year-old male known to me treated for outpatient knee arthritis. He has had viscosupplementation and corticosteroid injections in the past. Recently had a worsening after a fall several weeks ago. Had a corticosteroid injection of the bilateral knees on January 02 2024. Reports worsening over the last few days with swelling from the knee to the ankle and difficulty weight-bearing. Came to the emergency room for this. Pain weight-bearing. No fevers. The ER physician aspirated the left knee and send it for fluid analysis. Cell count 77436% PMNs. No organisms on Gram stain. No crystals. The patient was admitted to hospitalist service concern for inflammatory versus septic arthritis. Uric acid was 5.8. The patient endorsed good relief after aspiration. Had a dose of Toradol yesterday. This morning he reports feeling much better he demonstrates good range of motion with his knee. Still has some swelling around his ankle but demonstrates active dorsiflexion plantar flexion overall feeling much better. This was after receiving aspiration and NSAIDs. He has not had antibiotics. ESR was 29 CRP was 14. Meds Home Medications and Allergies Home Medications Medication Instructions Recorded Confirmed Type aspirin 81 mg tablet,delayed 81 mg PO BID 02/03/19 12/26/23 History release atorvastatin 10 mg tablet 20 mg BEDTIME 11/08/23 12/26/23 History metoprolol succinate 50 mg 50 mg PO DAILY 11/08/23 12/26/23 History tablet,extended release 24 hr lidocaine 5 % topical patch 1 patch topical DAILY pain #30 ea 12/23/23 12/26/23 Rx rosuvastatin 10 mg tablet 20 mg PO ONCE PM 01/27/24 History Allergies Allergy/AdvReac Type Severity Reaction Status Date / Time tetanus and diphtheria Allergy Mild ILL Verified 12/26/23 13:15 toxoids [tetanus & diphtheria toxoids] Opioids - Morphine Analogues AdvReac Intermediate Nausea Verified 12/26/23 13:15 Review of Systems Review of Systems ROS: Yes All systems reviewed with the patient and are negative except as otherwise documented Exam Vital Signs (past 8 hours): - 01/26/24 18:38 01/26/24 18:39 01/26/24 18:39 Pulse Rate 100 H Blood Pressure 162/80 H Pulse Oximetry 95 95 01/26/24 19:00 01/26/24 19:30 01/26/24 20:00 Pulse Rate 89 105 H 89 Blood Pressure Pulse Oximetry 94 96 95 01/26/24 20:30 01/26/24 21:00 01/26/24 21:30 Pulse Rate 93 H 91 H 90 Blood Pressure Pulse Oximetry 94 96 95 01/26/24 22:00 01/26/24 22:30 01/26/24 22:31 Pulse Rate 90 94 H 97 H Blood Pressure Pulse Oximetry 95 94 94 01/26/24 22:31 Pulse Rate Blood Pressure 154/79 H Pulse Oximetry Oxygen Delivery Method Room Air Narrative Exam Narrative: This morning the patient is seen in his hospital room. He is alert and oriented no acute distress. Pleasant and interactive. Overall nontoxic appearing. Sits up easily demonstrates flexion and extension of his knee from 0? to 115? with ease. There is small effusion no erythema. The small poke hole from the aspirations demonstrated. There is a small focal anterior red patch from the patient's recent fall. No specific tenderness to palpation. Good quadriceps tone. Calf is soft. Compartments are soft. There is some swelling around the ankle soft tissue medial and laterally. Dorsiflexion plantar flexion is intact. No focal tenderness to palpation. Palpable dorsalis pedis pulse. No erythema or cellulitis. Objective Imaging Knee x-ray left: My impression: 3Views of the left knee demonstrate chondrocalcinosis of the menisci. No fractures or dislocations., osteoarthritis. Labs 01/26/24 15:55 01/26/24 15:55 Labs: Laboratory Results - last 24 hr 01/26/24 01/26/24 15:55 21:02 WBC 13.2 H RBC 5.29 Hgb 15.6 Hct 46.1 MCV 87.3 MCH 29.5 MCHC 33.9 RDW 14.4 Plt Count 268 Neut % (Auto) 78.1 H Lymph % (Auto) 11.1 L [place] % (Auto) 8.8 Eos % (Auto) 0.7 L Baso % (Auto) 1.3 Neut # (Auto) 75102 H Lymph # (Auto) 1500 [place] # (Auto) 1200 H Eos # (Auto) 100 Baso # (Auto) 200 H ESR 29 H Sodium 135 L Potassium 3.9 Chloride 100 Carbon Dioxide 28 BUN 20 Creatinine 0.81 Estimated GFR > 60 BUN/Creatinine Ratio 24.7 H Glucose 108 Uric Acid 5.8 Calcium 9.7 C-Reactive Protein 14.4 H Fluid Color Yellow Fluid Appearance Cloudy Fluid RBC [id number] Fld Tot Nucleated Cell 53487 Fluid Polynuclear WBCs 89 Fluid Mononuclear WBCs 11 Fluid Eosinophils Not Reportable Fluid Other Cells Not Reportable Fluid Crystals None present Body Fluid Clot No clots present [facility] Medical History Chest pain at rest Hemangioma Belching Normocytic anemia Lymphocytosis Memory problem Peripheral neuropathy Night sweats Grief Back pain Thoracic spine pain Shoulder pain Enlarged prostate Easy bruisability Arthritis Vision disorder Chronic cough (~2004) Asthma Seasonal allergies Measles Malaria (~2007) Chicken pox Hearing loss (~1993) Pulmonary hypertension (~2002) Coronary artery disease (~2002) Surgical History S/P excision of lipoma Anesthesia History of surgery (~1971) Family History Father Heart disease Grandmother Stomach cancer Mother Dementia Social History marital status: household members: spouse occupational status: previously employed Tobacco & Substance Use Smoking Status: Former smoker alcohol intake: current substance use type: does not use Assessment & Plan Assessment and plan (1) Arthritis of knee, left: Status: Acute (2) Arthritis of ankle, left: Status: Acute (3) Inflammatory arthritis: Status: Acute (4) Knee effusion, left: Status: Acute Plan inflammatory vs infectious arthritis aspiration - 35K cells PMNs 89% no crystals g stain no organisms based on cell count and no organisms on gram stain- appears most likely inflammatory in nature, but need finalized cultures to definitively r/o infectious etiology. ESR/Crp can be elevated in both. treatment for inflammatory arthropathy is NSAIDS/ steroids --the patient was made excellent improvement overnight with treatment of aspiration and Toradol. He has good range of motion today. This favors inflammatory etiology. --based on improvement would treat for inflammatory arthropathy with NSAIDs, steroids. Discussed if patient's worsens or if finalized cultures come back with any organism growth then washout would be indicated. He will follow up with me as an outpatient. treatment for infectious etiology would be I&D and organism directed abx has known chondrocalcinosis on xray, also had left knee steroid injection 01/02/24 Time Spent With Patient Time with patient: 30 to 49 minutes with 50% spent counseling/coordinating care
[2024-01-27] VITALS: PULSE 91; O2SAT 94
[2024-01-27 00:17] VITALS: BP 124/67
[2024-01-27 00:25] VITALS: BP 127/77; PULSE 85; RESP 16; TEMP 36.7; O2SAT 96
[2024-01-27 00:46] VITALS: BMI 28.7
--- NOTE | 2024-01-27 00:57 | P.HP_ITS ---
History of Present Illness History of Present Illness Date Patient Seen: 01/27/24 Chief complaint: lt leg swelling, pain Narrative: 78 y/o with PMH of vertigo, peripheral neuropathy, recurrent falls and b/l primary arthritis of knees, presented to ED with left knee and ankle swelling and pain. 1-2 months ago he had GLF and injured left knee. He followed with orthopedist Dr Espitia and had viscosupplement Synojoint injected witch briefly relieved swelling and pain. In the meantime left ankle swell up. Knee fluid for now inflammatory only, treated with ketorolac in the ED with improved symptoms. Placed in observation, orhtopedic surgery consulted. [facility] Medical History Chest pain at rest Hemangioma Belching Normocytic anemia Lymphocytosis Memory problem Peripheral neuropathy Night sweats Grief Back pain Thoracic spine pain Shoulder pain Enlarged prostate Easy bruisability Arthritis Vision disorder Chronic cough (~2004) Asthma Seasonal allergies Measles Malaria (~2007) Chicken pox Hearing loss (~1993) Pulmonary hypertension (~2002) Coronary artery disease (~2002) Surgical History S/P excision of lipoma Anesthesia History of surgery (~1971) Family History Father Heart disease Grandmother Stomach cancer Mother Dementia Social History marital status: household members: spouse occupational status: previously employed Smoking Status: Former smoker alcohol intake: current substance use type: does not use Meds Home Medications and Allergies Home Medications Medication Instructions Recorded Confirmed Type aspirin 81 mg tablet,delayed 81 mg PO BID 02/03/19 12/26/23 History release atorvastatin 10 mg tablet 20 mg BEDTIME 11/08/23 12/26/23 History metoprolol succinate 50 mg 50 mg PO DAILY 11/08/23 12/26/23 History tablet,extended release 24 hr lidocaine 5 % topical patch 1 patch topical DAILY pain #30 ea 12/23/23 12/26/23 Rx Allergies Allergy/AdvReac Type Severity Reaction Status Date / Time tetanus and diphtheria Allergy Mild ILL Verified 12/26/23 13:15 toxoids [tetanus & diphtheria toxoids] Opioids - Morphine Analogues AdvReac Intermediate Nausea Verified 12/26/23 13:15 Review of Systems Review of Systems Narrative: He has memory deficits and Hx is not entirely reliable Constitutional Comments: w/o fever, chills or sweats Cardiovascular Comments: w/o chest pain Respiratory Comments: w/o shortness of breath Musculoskeletal Comments: swollen and painful left knee and left ankle, unable to bear weight Exam Vital Signs (past 8 hours): - 01/26/24 18:38 01/26/24 18:39 01/26/24 18:39 Pulse Rate 100 H Blood Pressure 162/80 H Pulse Oximetry 95 95 01/26/24 19:00 01/26/24 19:30 01/26/24 20:00 Pulse Rate 89 105 H 89 Blood Pressure Pulse Oximetry 94 96 95 01/26/24 20:30 01/26/24 21:00 01/26/24 21:30 Pulse Rate 93 H 91 H 90 Blood Pressure Pulse Oximetry 94 96 95 01/26/24 22:00 01/26/24 22:30 01/26/24 22:31 Pulse Rate 90 94 H 97 H Blood Pressure Pulse Oximetry 95 94 94 01/26/24 22:31 01/26/24 23:00 01/26/24 23:30 Pulse Rate 96 H 91 H Blood Pressure 154/79 H Pulse Oximetry 95 94 01/27/24 00:00 01/27/24 00:17 Pulse Rate 91 H Blood Pressure 124/67 Pulse Oximetry 94 Oxygen Delivery Method Room Air Const Other: laying in bed in no distress Resp Other: normal respiratory effort Cardio Other: RRR Skin Other: Lt knee with bruise Neuro Other: memory deficits Extrem Other: Tender, swollen, erythematous left knee and left ankle, pain with ROMs Objective Labs 01/26/24 15:55 01/26/24 15:55 Labs: Laboratory Results - last 24 hr 01/26/24 01/26/24 15:55 21:02 WBC 13.2 H RBC 5.29 Hgb 15.6 Hct 46.1 MCV 87.3 MCH 29.5 MCHC 33.9 RDW 14.4 Plt Count 268 Neut % (Auto) 78.1 H Lymph % (Auto) 11.1 L [place] % (Auto) 8.8 Eos % (Auto) 0.7 L Baso % (Auto) 1.3 Neut # (Auto) 40218 H Lymph # (Auto) 1500 [place] # (Auto) 1200 H Eos # (Auto) 100 Baso # (Auto) 200 H ESR 29 H Sodium 135 L Potassium 3.9 Chloride 100 Carbon Dioxide 28 BUN 20 Creatinine 0.81 Estimated GFR > 60 BUN/Creatinine Ratio 24.7 H Glucose 108 Uric Acid 5.8 Calcium 9.7 C-Reactive Protein 14.4 H Fluid Color Yellow Fluid Appearance Cloudy Fluid RBC [id number] Fld Tot Nucleated Cell 98644 Fluid Polynuclear WBCs 89 Fluid Mononuclear WBCs 11 Fluid Eosinophils Not Reportable Fluid Other Cells Not Reportable Fluid Crystals None present Body Fluid Clot No clots present Assessment & Plan Assessment and plan (1) Arthritis of ankle, left: Status: Acute (2) Arthritis of knee, left: Status: Acute (3) Recurrent falls: Status: Acute (4) Peripheral neuropathy: Qualifiers: Peripheral neuropathy type: polyneuropathy, unspecified Qualified Code(s): G62.9 - Polyneuropathy, unspecified Status: Acute (5) Coronary artery disease: Problem details: Stent x 1 Qualifiers: Coronary Disease-Associated Artery/Lesion type: unspecified vessel or lesion type [place]igh[place] vs. transplanted heart: [place] heart Associated angina: u nspecified whether angina present Qualified Code(s): I25.10 - Atherosclerotic heart disease of [place] coronary artery without angina pectoris Status: Acute (6) Vertigo: Status: Acute (7) Memory problem: Status: Acute (8) Enlarged prostate: Status: Acute (9) Essential hypertension: Status: None (10) Mixed hyperlipidemia: Status: None Assessment & Plan narrative: Lt Ankle and Lt Knee Arthritis - inflammatory vs infectious - has inconclusive knee arthrocenthesis and risks for both with PMH of primary b/l knee arthritis and Lt knee Synojoint injection - placed in observation to be seen by orthopedic surgeon on NSAIDs only, for now HTN / CAD / HLD - according to PCP's office visit a month ago, on ASA, statin and BB - patient said that he does not take any medications Memory Loss - supportive care DVT prophylaxis - SCDs
--- NOTE | 2024-01-27 03:33 | PC.NURSE ---
Pt admitted tonight from ER via w/c able to transfer to bed with SBA. Denies pain and able to elevate LLE which pt said he couldn't do prior to coming to ER. Pt states he doesn't take any prescribes medications that he only takes medications over the counter and couldn't remembered what they were. Will check with spouse during the day time to verify current home medications.
[2024-01-27 08:00] VITALS: BP 132/69; PULSE 76; RESP 16; TEMP 36.9; O2SAT 97
[2024-01-27] MEDS: CELECOXIB 100 MG CAPSULE PO (09:27)
[2024-01-27 09:28] VITALS: BP 132/69; PULSE 76
[2024-01-27] MEDS: predniSONE 20 MG TABLET 40 MG PO (09:28)
[2024-01-27] MEDS: METOPROLOL ER 50 MG TABLET PO (09:28)
--- NOTE | 2024-01-27 09:42 | CM.DANOTE ---
Addendum entered by DENIS Cardoso 01/27/24 12:54: ADD: Per PT, pt had poor balance and impulsive and difficulty learning DME/FWW and recommending HH and pt would benefit from OT eval and SLUMS for cognitive assessment. SW met bedside with pt, spouse, and adult son and explained role. Family confirms that pt is below baseline with his mobility as son states he was visiting two weeks ago and pt was ambulating independently without really any balance issues or need for DME and due to pt's pain and swelling his ambulation is decreased. SW explained HH services and frequency and pt currently declines although spouse and son feel HH could be beneficial. Pt and family will discuss and determine if they would like a HH referral. Pt and family confirm that FWW needed and son and spouse plan to go get lunch and stop at [employer] now for loaner DME. Plan: SW to follow closely to determine if pt might d/c today vs tomorrow and family to confirm if they would like HH or not. DENIS Cardoso Original Note: Patient is an 78 yo male who was admitted OBS on 01/26/24 for Leg Swelling. Pt has [facility] and [facility] for insurance and his PCP is Dr. Jas Robles. EMR was reviewed. Per MD, pt with hx of falls and vertigo and admitted for inflammatory vs septic arthritis. Per Ortho MD, awaiting cultures to confirm no I&D needed. Based on cultures, no need for surgical intervention and looks to be more inflammatory rather than infected. SW met bedside with pt and explained role and pt clearly with some recall challenges and word finding but confirms he lives at home in [place] with his and they have local adult children and he states his son from [facility] drove over last night and staying at their house in case further assist needed. Pt states he ambulates independently at baseline and does not use DME and denies any hx of HH or SNF but due to the pain in his foot/leg he has struggled with ambulation and weight bearing and therefore is requesting to work with PT eval for tips and tricks to ambulate. Pt also states he is aware of [employer] [employer] program and might have his spouse order picker a FWW for home use. Pt states he is a retired [employer] and his preference is to discharge home with spouse and likely adult son to transport and for a FWW for home use. PT ordered and pending. Plan: SW to follow for PT eval and recommendations to confirm safe plan of discharge home with spouse and son and any further identified discharge planning needs. DENIS Cardoso Discharge Planning/Care Management CM Discharge Assessment Start: 01/27/24 09:39 Freq: Status: Active Protocol: Document 01/27/24 09:40 BF (Rec: 01/27/24 09:42 BF [id number]) Discharge Planning Assessment Assigned [employer] DENIS Pierson DPOA/Assigned Designee Name Spouse Contact Information [phone] Advance Directives? Yes Advance Directives on File No History Provided By Patient,Medical Record Has Patient been admitted in last 30 No days? Prior Living Arrangements Apartment/Condo Household Members spouse Type of transporation used prior to Drives own vehicle admit Independent with ADL's Yes Is patient alert and oriented? No: some memory issues and recall issues Needs Assistance With Managing Medications Caregiver for Another No Comment Pending PT eval Barriers to Discharge No Discharge Plan Home Transportation Arrangement Spouse or son drove over from [facility] Additional Comment Pending cultures and PT eval Whiteboard Updated in Patient Room with Yes name and ext. # of Intelligence Operations Review Status In Process Please Provide Date Initial DC 01/27/24 Assessment Was Performed Next Review Type Continued Stay Review
--- NOTE | 2024-01-27 12:51 | PT.OIE ---
Current Diagnoses Mixed hyperlipidemia (01/26/24) Polyneuropathy, unspecified (01/26/24) Essential (primary) hypertension (01/26/24) Atherosclerotic heart disease of [place] coronary artery without angina pectoris (01/26/24) Unilateral primary osteoarthritis, left knee (01/26/24) Primary osteoarthritis, left ankle and foot (01/26/24) Unspecified osteoarthritis, unspecified site (01/26/24) Effusion, left knee (01/26/24) Benign prostatic hyperplasia without lower urinary tract symptoms (01/26/24) Repeated falls (01/26/24) Other amnesia (01/26/24) Dizziness and giddiness (01/26/24) Past Medical History (Last Reviewed 01/27/24 @ 07:40 by Bee Cotton MD) Arthritis Asthma Back pain Belching Chest pain at rest Chicken pox Chronic cough (~2004) Coronary artery disease (~2002) Easy bruisability Enlarged prostate Grief Hearing loss (~1993) Hemangioma Lymphocytosis Malaria (~2007) Measles Memory problem Night sweats Normocytic anemia Peripheral neuropathy Pulmonary hypertension (~2002) Seasonal allergies Shoulder pain Thoracic spine pain Vision disorder Past Surgical History (Last Reviewed 09/26/22 @ 11:40 by Ayden Beverly MD) Anesthesia History of surgery (~1971) S/P excision of lipoma Visit Care Team Role Provider Type Jas Robles DO Primary Care Provider Physician Specialty: Family Practice Address: [address] [place] [address] Email: Bee Cotton MD Other Providers Physician Specialty: Orthopedics Orthopedic Surgery Address: [address] [place] [address], [address] Email: [email or web address] Casey Orellana DO Emergency Provider Physician Specialty: Emergency Medicine Address: [address] [place], [place] [id number] Email: [email or web address] Vaca MD Admit Provider Physician Attending Provider Specialty: Internal Medicine Address: [address] [place] [address], [id number] Email: [email or web address]
--- NOTE | 2024-01-27 15:02 | P.DS_ITS ---
History of Present Illness History of Present Illness Chief complaint: lt leg swelling, pain Narrative: 78 y/o with PMH of vertigo, peripheral neuropathy, recurrent falls and b/l primary arthritis of knees, presented to ED with left knee and ankle swelling and pain. 1-2 months ago he had GLF and injured left knee. He followed with orthopedist Dr Espitia and had viscosupplement Synojoint injected witch briefly relieved swelling and pain. In the meantime left ankle swell up. Knee fluid for now inflammatory only, treated with ketorolac in the ED with improved symptoms. Placed in observation, orhtopedic surgery consulted. Discharge Providers Provider Date of admission: 01/26/24 23:29 Discharge Date: 01/27/24 Primary care physician: Jas Robles DO Consults: 01/26/24 22:53 Consult to Orthopedic Surgery Stat Comment: Consulting Provider: Bee Cotton Reason for consultation: Arthritis Has provider been notified: Yes 01/27/24 09:39 Consult to Physical Therapy Evaluate & Treat Comment: Physician Instructions: Evaluate and Treat Discharge provider: Vahe Tolbert DO Summary Hospital Course Discharge Diagnosis: Lt Ankle and Lt Knee Arthritis - ortho saw and thinks more likely inflammatory than infectious - has inconclusive knee arthrocenthesis and risks for both with PMH of primary b/l knee arthritis and Lt knee Synojoint injection - knee and ankle pain improved s/p toradol IV and arthrocentesis of knee effusion - ortho recommended steroids and NSAIDs, f/up in their clinic HTN / CAD / HLD - according to PCP's office visit a month ago, on ASA, statin and BB - patient said that he does not take any medications Memory Loss - supportive care Hospital Course: Admitted for L knee and ankle swelling and pain. Initial concern for septic arthritis but arthrocentesis suggested inflammatory athritis. Pain improved with IV toradol. Ortho consulted and did not recommend abx but prednisone and NSAIDs. Patient will f/up in ortho clinic in 2 weeks. Exam Vital Signs (past 8 hours): - 01/27/24 08:00 01/27/24 09:28 Temperature 98.4 F Pulse Rate 76 76 Respiratory Rate 16 Blood Pressure 132/69 132/69 Pulse Oximetry 97 Oxygen Flow Rate 0 Oxygen Delivery Method Room Air Oxygen Flow Rate 0 Const Other: laying in bed in no distress Resp Other: normal respiratory effort Cardio Other: RRR Skin Other: Lt knee with post arthrocentesis needle site Neuro Other: memory deficits Extrem Other: Improved tenderness and swelling of left knee and left ankle, pain with ROMs also improved Objective Labs 01/26/24 15:55 01/26/24 15:55 Labs: Laboratory Results - last 24 hr 01/26/24 01/26/24 15:55 21:02 WBC 13.2 H RBC 5.29 Hgb 15.6 Hct 46.1 MCV 87.3 MCH 29.5 MCHC 33.9 RDW 14.4 Plt Count 268 Neut % (Auto) 78.1 H Lymph % (Auto) 11.1 L [place] % (Auto) 8.8 Eos % (Auto) 0.7 L Baso % (Auto) 1.3 Neut # (Auto) 22540 H Lymph # (Auto) 1500 [place] # (Auto) 1200 H Eos # (Auto) 100 Baso # (Auto) 200 H ESR 29 H Sodium 135 L Potassium 3.9 Chloride 100 Carbon Dioxide 28 BUN 20 Creatinine 0.81 Estimated GFR > 60 BUN/Creatinine Ratio 24.7 H Glucose 108 Uric Acid 5.8 Calcium 9.7 C-Reactive Protein 14.4 H Fluid Color Yellow Fluid Appearance Cloudy Fluid RBC [id number] Fld Tot Nucleated Cell 21789 Fluid Polynuclear WBCs 89 Fluid Mononuclear WBCs 11 Fluid Eosinophils Not Reportable Fluid Other Cells Not Reportable Fluid Crystals None present Body Fluid Clot No clots present REPLACED BY [facility] Medical History Chest pain at rest Hemangioma Belching Normocytic anemia Lymphocytosis Memory problem Peripheral neuropathy Night sweats Grief Back pain Thoracic spine pain Shoulder pain Enlarged prostate Easy bruisability Arthritis Vision disorder Chronic cough (~2004) Asthma Seasonal allergies Measles Malaria (~2007) Chicken pox Hearing loss (~1993) Pulmonary hypertension (~2002) Coronary artery disease (~2002) Surgical History S/P excision of lipoma Anesthesia History of surgery (~1971) Family History Father Heart disease Grandmother Stomach cancer Mother Dementia Social History marital status: household members: spouse occupational status: previously employed Smoking Status: Former smoker alcohol intake: current substance use type: does not use Discharge Plan Discharge Plan Patient Disposition: Home Provider Discharge Comment: Your knee and ankle swelling is likely from inflammatory arthritis. Please take steroids and celebrex and follow-up with Dr. Cotton in clinic. Discharge orders & Medications Prescriptions: New celecoxib [Celebrex] 100 mg Capsule 100 mg PO BID Qty: 60 0RF prednisone 20 mg tablet See Rx Instructions .ROUTE .COMPLEX Qty: 12 0RF Rx Instructions: 60 mg (3 pills) daily for 2 days, then 40 mg (2 pills) daily for 2 days, then 20mg (1 pill) daily for 2 days then stop Continued aspirin 81 mg Tablet,Delayed Release (Dr/Ec) 81 mg PO DAILY metoprolol succinate 50 mg tablet extended release 24 hr 50 mg PO DAILY Follow up/Referrals: Bee Cotton MD [Physician] - 2 Weeks Jas Robles DO [Primary Care Provider] - 2 Weeks Visit Report/Discharge Packet Stand Alone Forms: Patient Portal/API, Stroke Signs & Symptoms Discharge Data Primary Care Provider: Jas Robles Attending Provider: Nahid Baxter Admit Date/Time: 01/26/24 23:29 Quality VTE Deep Vein Thrombosis/Pulmonary Embolism Present on Admission: No
--- NOTE | 2024-01-27 15:44 | PC.NURSE ---
Patient is A&OX3, slightly forgetful about medications. He was able to state that he did not get a refill for rosuvastatin or atorvastatin and was no longer taking those. RN recommended clarifying with PCP. He is cleared for discharge today by Ortho MD Cotton, and cleared by hospitalist for discharge home after PT evaluation. He is able to mobilize with a FWW. He is distributed a FWW. Son and at bedside very supportive. He and verbalize understanding of discharge medications, fall precautions, and follow up appointment recommendation with MD Cotton and his PCP within 2 weeks. He is escorted via w/ch by RN with all of his belongings including new FWW to private vehicle with son and for discharge home today at approximately 1530 thsi afternoon.
== END 2024-01-27 15:30 | disposition home or self-care (01) ==
LOC: ED 23:06 → AC 23:29
PROVIDERS: Emergency Medicine; Admitting Provider Internal Medicine; Emergency Provider Emergency Medicine; PCP Family Medicine; Visit Provider Internal Medicine
DX: M25.462 Effusion, left knee (principal); M17.12 Unilateral primary osteoarthritis, left knee; M79.89 Other specified soft tissue disorders; G62.9 Polyneuropathy, unspecified; I25.10 Atherosclerotic heart disease of native coronary artery without angina pectoris; I10 Essential (primary) hypertension; E78.2 Mixed hyperlipidemia; R29.6 Repeated falls
CPT/HCPCS: 20610; 36415; 73562; 73610; 73630; 80048; 84550; 85025; 85651; 86140; 87070; 87075; 87205; 89051; 89060; 93971; 96374; 97116; 99284; G0378; J1885

== ENCOUNTER → 2025-02-03 15:08 | Outpatient (CLI) | payer MEDICARE, OTHER, SELFPAY ==
--- NOTE | 2025-02-03 15:12 | DI.RAD.S_ITS ---
PROCEDURE: XR RIBS RT MIN 3V W CXR 1V INDICATIONS: fall on right side, sharp pain w/ deep breath TECHNIQUE: 2 views of the ribs were acquired, along with a single view chest. COMPARISON: None. FINDINGS: Heart, mediastinum and pulmonary vascular: Heart is normal in size and configuration. Mediastinum is unremarkable. Pulmonary vascular is normal. Lungs: Minor bibasilar atelectasis noted. Pleural spaces: Normal-no effusions or pneumothorax. Bones and soft tissues: Normal . Nondisplaced fracture anterior right 7th rib noted IMPRESSION: Moderate bibasilar atelectasis Nondisplaced fracture anterior right 7th rib Dictated by: Dashawn Stoner M.D. on 02/04/2025 at 12:33 Approved by: Dashawn Stoner M.D. on 02/04/2025 at 12:35
== END ==
LOC: LAB 15:10 → RAD 15:13
PROVIDERS: PCP Family Medicine; Referring Provider Family Medicine; Visit Provider Family Medicine
DX: S22.31XA Fracture of one rib, right side, initial encounter for closed fracture (principal); J98.11 Atelectasis; W19.XXXA Unspecified fall, initial encounter
CPT/HCPCS: 71101

== ENCOUNTER → 2025-09-23 15:03 | Outpatient (CLI) | payer MEDICARE, OTHER, SELFPAY ==
--- NOTE | 2025-09-23 15:08 | DI.MRI.S_ITS ---
PROCEDURE: MR HEAD/BRAIN WO CON INDICATIONS: advancing dementia TECHNIQUE: Non-contrast axial T1 spin echo, axial T2 fast spin echo, sagittal and axial FLAIR, coronal T2 fast spin echo, axial gradient echo, axial diffusion and ADC through the brain. COMPARISON: [facility], MR, MR HEAD/BRAIN WO CON, 09/13/2022, 10:04. [facility], MR, MR HEAD/BRAIN WO CON, 06/08/2018, 7:47. FINDINGS: Image quality: Diagnostic, with note made of motion artifact. CSF spaces: Ventricles appear symmetric in size and shape. Basal cisterns are patent. No extra-axial fluid collections. Brain: No intracranial bleeds or mass effects. Moderate generalized brain parenchymal volume loss is seen, yet without focal abnormal regional volume loss. There is [id number] the chronic small vessel ischemic change. Brainstem appears normal. Diffusion-weighted images show no acute infarct. No chronic ischemic insults. Normal intravascular flow voids are present. Skull and face: Calvarial bone marrow is normal in signal. Orbits are normal. Note is made of bilateral lens replacements. Sinuses: There is at least moderate mucosal thickening involving the left maxillary sinus. Milder mucosal thickening can be seen elsewhere within the paranasal sinuses. No abnormal fluid is seen within the mastoid air cells. IMPRESSION: Note is made of age-appropriate brain parenchymal volume loss and chronic small vessel ischemic changes. Negative for recent hemorrhage. No findings of acute or subacute infarction can be seen. No prior territorial infarct can be seen. Additional findings: Focal left maxillary sinus disease Dictated by: Pete Duran M.D. on 09/23/2025 at 15:58 Approved by: Pete Duran M.D. on 09/23/2025 at 16:00
== END ==
LOC: MRI 15:07
PROVIDERS: PCP Family Medicine; Referring Provider Family Medicine; Visit Provider Family Medicine
DX: S09.90XD Unspecified injury of head, subsequent encounter (principal); F03.90 Unspecified dementia, unspecified severity, without behavioral disturbance, psychotic disturbance, mood disturbance, and anxiety; J32.0 Chronic maxillary sinusitis; X58.XXXD Exposure to other specified factors, subsequent encounter
CPT/HCPCS: 70551